=== PATIENT | female | born 1945 | race Caucasian/White ===

== ENCOUNTER → 2023-09-05 12:49 | Outpatient (REF) | payer MEDICARE, SELFPAY | LOC: DHCBS MAIN 12:49 | PROVIDERS: ATTENDING PHYSICIAN Internal Medicine Cardiovascular Disease; FAMILY PHYSICIAN Nurse Practitioner Adult Health | DX: I42.8 Other cardiomyopathies (principal) | CPT/HCPCS: 93306 ==

== ENCOUNTER → 2025-02-10 14:15 | Outpatient (REF) | payer MEDICARE, OTHER, SELFPAY | LOC: RCS 14:15 | PROVIDERS: ATTENDING PHYSICIAN Physician Assistant | DX: I50.32 Chronic diastolic (congestive) heart failure (principal); I42.8 Other cardiomyopathies; R06.02 Shortness of breath | CPT/HCPCS: 93306 ==

== ENCOUNTER 2025-02-11 16:18 | Inpatient (IN) | payer MEDICARE, OTHER, SELFPAY ==
[2025-02-11] VITALS (14 sets, daily range): BP systolic 78–120; BP diastolic 49–83
--- NOTE | 2025-02-11 12:42 | ED.GENMED ---
History of Present Illness
General
Chief Complaint: Breathing Problem
Time Seen by Provider: 02/11/25 12:42
History of Present Illness
History of Present Illness:
TIME OF INITIAL ENCOUNTER: 12:45 PM
HPI: I reviewed the clay-in note from Dr. Bowers in which there was an echo performed yesterday that showed new right heart dilatation and dysfunction with new PA pressure of 76 mmHg. She was seen in their office for vague symptoms a few weeks
ago including edema and shortness of breath. Dr. Bowers wanted a CTA for evaluation of PE. The patient has some vague symptoms including some shortness of breath which is not necessarily worse now.
EXAM:
GENERAL: The patient appears somewhat weak in general
HEENT: Moist oral mucosa
CARDIOVASCULAR: No murmurs, normal heart rate, regular rhythm, No chest wall tenderness
PULMONARY: No respiratory distress, breath sounds are slightly diminished at the bases
ABDOMEN: Soft with no peritoneal signs, no tenderness
NEUROLOGIC: Excellent strength all extremities, no coordination deficits
PSYCHIATRIC: Appropriate mental status, normal insight and judgement
EXTREMITIES: Nontender, 2+ lower extremity edema, moves all extremities equally
SKIN: No rash, no lesions
NUMBER AND COMPLEXITY OF PROBLEMS ADDRESSED AT THE ENCOUNTER
� Chronic conditions affecting care: High blood pressure
� Acute Exacerbation and/or Progression of Chronic Illness: This is an acute problem
� Differential Diagnosis includes: CHF, PE, ACS, pleural effusions
AMOUNT AND/OR COMPLEXITY OF DATA TO BE REVIEWED AND ANALYZED
� I performed an independent evaluation of and my interpretation is:
EKG: Sinus 76, rightward axis deviation, IVCD
CT: CTA shows extensive clot burden by my read.
X-rays:
Laboratory Studies: Troponin less than 0.012, BNP 7570, creatinine normal, potassium 5.2
Other:
� Review of other/old records: Echo from yesterday showed EF of 57% with no regional wall motion abnormality, diastolic function indeterminate, 'D-shaped interventricular septum in systole consistent with pressure overload',
mildly reduced right ventricular systolic function, PA pressure of 76 mmHg, severely dilated RA.
� Clinical information was obtained by an independent historian: None needed
� Prescriptions/Medications Considered but not given:
� Further testing considered but not performed:
RISK OF COMPLICATIONS AND/OR MORBIDITY OR MORTALITY OF PATIENT MANAGEMENT
� Social determinants of health affecting care: Lives at home
� Discussion with other providers: After my review of CTA, I activated PERT alert and also discussed with hospitalist, hotel front desk clerk who recommends catheter directed lysis. I also notified cardiology�DrYandel Delgado is aware.
� Escalation of care including admission/observation vs risk of discharge considered: The patient had abnormal echo from yesterday. D-dimer was ordered from triage today which was elevated. CTA pending.
ANY OTHER UPDATES:
3:05 PM: I reviewed the CT images which shows rather extensive bilateral clot burden. Her blood pressure has spontaneously improved now with his systolic of 120 without any intervention including no IV fluids.
3:35 PM: Dr. Green said he will try to perform catheter directed lysis although there may be a chronic component to this PE. Her echo findings are new.
Phy Exam
Physical Exam
Physical Exam:
See HPI
Scores
Heart Failure Risk
Heart Failure Risk Score: Not Applicable
Course
Orders/Labs/Results
Orders:
Orders
02/11/25 12:30
EKG [Electrocardiogram (*1)] Urgent
Reason for Study: Shortness of Breath
EKG- Treatment ONCE
02/11/25 12:37
IV Insert/Care/Rem.- Treatment PRN
Pulse Ox/cont/shift [RESP] Stat
Quantity: 1
02/11/25 12:38
CT Chest PE Study Urgent
Comment:
Reason For Exam: short of breath, RV dilation on echo
02/11/25 12:39
Electrocardiogram (*1) Stat
Reason for Study: Other
Other Reason for Exam: chest pain
Cardiac Monitoring- Treatment ONCE
EKG- Treatment ONCE
02/11/25 12:47
Basic Metabolic Panel Urgent
Complete Blood Count/With Diff Urgent
D-Dimer Urgent
NT-proBNP Urgent
PTT Urgent
Prothrombin Time Urgent
Troponin I Urgent
02/11/25 13:33
CMP [Comprehensive Metabolic Panel] Urgent
02/11/25 15:06
Heparin 6,300 units IV NOW STA
Nursing to Place Non Medication Order As Directed
Physician Order: PTT 6 hours after initial start of Heparin infusion
02/11/25 15:15
Heparin 6,300 units IV PRN PRN
Heparin 56043 Units/250 ml 25,000 units in 250 ml IV PER PROTOCOL
Weight to be used for heparin protocol in kilograms (kg):: 79
Protocol:: DVT/PE
PTT Goal Range to be used:: PTT 73 to 111 seconds
Order type:: Initial
INITIAL Infusion Dose (UNITS/KG/hr) & then follow protocol:: 18 units/kg/hr
Infusion Dose in UNITS/hr & then follow protocol (UNITS/hr):: 1,400
INFUSION RATE in mL/hr & then follow protocol (mL/hr):: 14
For DVT/PE algorithm, re-bolus for low PTT?: Yes
PTT less than or equal to 64 seconds:: Re-bolus 80 units/kg (max 10,000units). Increase by 300 units/hr
(+ 3mL/hr)
PTT 64.1 to 72.9 seconds:: Re-bolus 40 units/kg (max 5,000 units). Increase by 200 units/hr
(+ 2mL/hr)
PTT 73 to 111 seconds:: Target Range. No change in rate.
PTT 111.1 to 130.9 seconds:: Decrease rate by 200 units/hr (- 2 mL/hr)
PTT 131 to 199.9 seconds:: HOLD for 1 hr. Then decrease by 200 units/hr (- 2mL/hr)
PTT greater than or equal to 200 seconds:: HOLD for 2 hrs & Notify Provider. Then decrease by 300 units/hr
(- 3mL/hr)
Lab follow-up:: Each change, PTT q6h until 2 consecutive are therapeutic. Then
PTT daily.
02/11/25 15:16
Heparin 3,200 units IV PRN PRN
02/11/25 15:30
Consult Interventional Radiology [IRAD CONSULT] Urgent
Consulting Provider: Marcos Green
Was physician already notified: Yes
Procedure being ordered, including laterality if applicable: CDT
Acknowledgement that appropriate orders are entered: Yes
Abnormal Lab Results
02/11/25 02/11/25
12:47 13:33
MCV 103.2 H fL
(81.0-99.0)
MCH 35.6 H pg
(27.0-31.0)
MPV 10.9 H fL
(7.4-10.4)
Lymphocytes % 16.4 L %
(20.5-51.1)
PT 15.0 H Sec
(11.4-14.6)
D-Dimer 2.76 H ug/mlFEU
(0.00-0.50)
Potassium 5.2 H mmol/L
(3.5-5.1)
Chloride 109 H mmol/L 109 H mmol/L
(98-107) (98-107)
BUN 18 H mg/dl 18 H mg/dl
(7-17) (7-17)
Glucose 119 H mg/dl 104 H mg/dl
(70-99) (70-99)
Total Bilirubin 1.4 H mg/dl
(0.2-1.3)
02/11/25 12:47
02/11/25 13:33
Vital Signs
Initial and Last Documented VS:
Initial Vital Signs
Temp Pulse Resp BP Pulse Ox
36.9 C 72 18 106/58 88
02/11/25 12:37 02/11/25 12:37 02/11/25 12:37 02/11/25 12:37 02/11/25 12:37
Last Documented Vital Signs
Temp Pulse Resp BP Pulse Ox
36.9 C 76 24 120/78 93
02/11/25 12:37 02/11/25 15:04 02/11/25 15:04 02/11/25 15:04 02/11/25 15:06
*Pulse Oximetry
Patient hypoxic: yes
*Critical Care Note
Total Time (30-74mins, 75-104mins- exclusive of procedures): 55min
comment:
Patient is found to have bilateral PE on CTA, arrived somewhat hypotensive and had strain noted on yesterday's echo. Emergently placed on heparin. She has been on nasal cannula oxygen today as her room air sats were 88% and with nasal cannula
oxygen up to 93%. She does not appear to be in any significant distress on multiple reevaluations.
ED Attending Note
-
Portions of this chart may have been created with voice recognition software.� Occasional wrong word or��sound alike� substitutions may have occurred due to the inherent limitations of voice recognition software.
Discharge Plan
Departure
Patient Disposition: Admit
Date of Disposition: 02/11/25
Time of Disposition: 15:03
Presentation/result/management discussed w/ accepting MD/DO: Hospitalist
Discharge Problem:
Pulmonary embolism
Prescriptions:
No Action
carvedilol 12.5 MG tablet
12.5 mg PO BID
PRECIOUS-e 200 MG tablet
200 mg PO DAILY
Hair, Skin and Nails Advanced 1 EACH tablet
2 tab PO DAILY
cranberry conc-ascorbic acid 1 EACH capsule
2 tab PO DAILY
multivitamin with folic acid [Tab-A-Freda] 1 TABLET tablet
2 tab PO DAILY
coenzyme Q10 [Co Q-10] 10 MG capsule
10 mg PO DAILY Qty: 0 0RF
Rx Instructions:
Resume in 1 week.
spironolactone 25 MG tablet
25 mg PO DAILY Qty: 0 0RF
Rx Instructions:
Hold if systolic blood pressure <130 while on Oxycodone.
omega 5-qlw-pof-fish oil [Fish Oil] 1 EACH capsule
2 tab PO DAILY Qty: 0 0RF
Rx Instructions:
Resume in 1 week.
lisinopril 10 mg tablet
10 mg PO DAILY
ibuprofen 200 mg Tablet
200 mg PO DAILY
cholecalciferol (vitamin D3) 25 mcg (1,000 unit) Tablet
25 mcg PO DAILY
Referrals:
Margaux Zheng CRNP [Family Provider] -
Interventions
Interventions:
*Risk Screen - Suicide Last Done: 02/11/25 12:37
*General Assessment Last Done: 02/11/25 12:37
*Neglect/Abuse Screening Last Done: 02/11/25 12:37
*ED- Fall Risk Assessment Last Done: 02/11/25 12:49
*ED COVID-19 Vaccine History Last Done: 02/11/25 12:49
ED- Cardiac Assessment Last Done: 02/11/25 12:49
ED- Pulmonary Assessment Last Done: 02/11/25 12:49
Discharge Date and Time
Print Language: [place]
[2025-02-11 13:13] LABS: APTT 28.9 Sec (23.4-35.0); INR 1.15
[2025-02-11 13:16] LABS: D-Dimer 2.76 ug/mlFEU (0.00-0.50)
[2025-02-11 13:18] LABS: % Basophils 0.6 % (0-2); % Eosinophils 2.1 % (0-6); % Immature Granulocytes 0.1 % (0-0.5); % Lymphocytes 16.4 % (20.5-51.1); % Monocytes 6.2 % (1.7-9.3); % Neutrophils 74.6 % (42.2-75.2); Absolute Eosinophils 0.2 10^3/uL (0-0.7); Absolute Lymphocytes 1.2 10^3/uL (1.2-3.4); Absolute Monocytes 0.5 10^3/uL (0.1-0.6); Absolute Neutrophils 5.4 10^3/uL (1.4-6.5); Hematocrit 44.6 % (37.0-47.0); Hemoglobin 15.4 g/dL (12.0-16.0); Mean Corp Hgb Conc. 34.5 g/dL (33.0-37.0); Mean Corpuscular Hgb 35.6 pg (27.0-31.0); Mean Corpuscular Volume 103.2 fL (81.0-99.0); Mean Platelet Volume 10.9 fL (7.4-10.4); Nucleated Red Blood Cells % 0 %; Platelet Count 148 10^3/uL (130-400); Red Blood Cell Count 4.32 10^6/uL (4.20-5.40); Red Cell Dist. Width 12.9 % (11.5-14.5); White Blood Cell Count 7.2 10^3/uL (4.8-10.8)
[2025-02-11 13:26] LABS: NT-proBNP 7570 pg/ml; Troponin I < 0.012 ng/ml
[2025-02-11 13:29] LABS: Blood Urea Nitrogen 18 mg/dl (7-17); Calcium 9.5 mg/dl (8.4-10.2); Carbon Dioxide 23 mmol/L (22-30); Chloride 109 mmol/L (98-107); Glucose 119 mg/dl (70-99); Sodium 139 mmol/L (135-145)
[2025-02-11 13:58] LABS: ALT (SGPT) 14 U/L (0-35); AST (SGOT) 25 U/L (14-36); Albumin 3.5 g/dl (3.5-5.0); Alkaline Phosphatase 60 U/L (38-126); Blood Urea Nitrogen 18 mg/dl (7-17); Calcium 9.4 mg/dl (8.4-10.2); Carbon Dioxide 25 mmol/L (22-30); Chloride 109 mmol/L (98-107); Glucose 104 mg/dl (70-99); Potassium 5.2 mmol/L (3.5-5.1); Sodium 140 mmol/L (135-145); Total Bilirubin 1.4 mg/dl (0.2-1.3); Total Protein 6.4 g/dl (6.3-8.2)
[2025-02-11] MEDS: HEPARIN 6300 UNITS IV (15:19)
[2025-02-11] MEDS: HEPARIN 25000 UNITS/250 ML IV (15:23)
--- NOTE | 2025-02-11 15:47 | HPS.HSE ---
Family Physician
-
Family Physician: IVANA Pavon
Chief Complaint
-
Sent in by [facility] Card for Abnormal ECHO concerning for PE
History of Present Illness
HPI
79F HX HTN seen by Dr. Bowers due to SOB, LE edema with ongoing SOB for weeks worse w/ exertion.
Yesterday Echo shows new RV dilatation and PA pressure 76. LVEF 57%
Trop neg, but BNP over 7000 w/ no old to compare. EF 57%.
CTA and shows rather extensive clot burden bilaterally
Blood pressures have been hovering around 100 systolic.
Activating PERT Alert by ER attd
Medical History
Past Medical History
Past Medical History: Reports HTN
Past Surgical History: Reports Other
Social History
Tobacco: Non-smoker
Alcohol: None
Family History
Family History: Not pertinent
Allergies / Home Medications
Allergies reflects when Allergies were last updated in [employer].
Home Medications with original date entered in [employer]
Allergy/Medication List:
Allergies
Allergy/AdvReac Type Severity Reaction Status Date / Time
meperidine Allergy shock Verified 02/11/25 12:36
[id number] - Not Allergy Unknown Uncoded 04/16/21 06:25
Converted 38. See Text.
Home Medications
carvedilol 12.5 mg tablet 12.5 mg PO BID 04/10/21
cranberry concentrate-ascorbic acid 12,600 mg-20 mg capsule 2 tab PO DAILY 04/10/21
multivitamin with folic acid 400 mcg tablet (Tab-A-Freda) 2 tab PO DAILY 04/10/21
multivitamin,min-ferrous fumarate 3.3 mg-folic 25 mcg-herb tablet (Hair, Skin and Nails Advanced) 2 tab PO DAILY 04/10/21
s-adenosylmethionine 200 mg tablet (PRECIOUS-e) 200 mg PO DAILY 04/10/21
coenzyme Q10 10 mg capsule (Co Q-10) 10 mg PO DAILY ##0 04/16/21
omega 1-hrw-ihd-fish oil 300 mg-1,000 mg capsule (Fish Oil) 2 tab PO DAILY ##0 04/16/21
spironolactone 25 mg tablet 25 mg PO DAILY ##0 04/16/21
cholecalciferol (vitamin D3) 25 mcg (1,000 unit) tablet 25 mcg PO DAILY 02/11/25
ibuprofen 200 mg tablet 200 mg PO DAILY 02/11/25
lisinopril 10 mg tablet 10 mg PO DAILY 02/11/25
Review of Systems
-
Constitutional: Reports No Symptoms
EENT: Reports No Symptoms
Respiratory: Reports See HPI and Trouble Breathing
Cardiac: Reports No Symptoms
Abdomen/GI: Reports No Symptoms
: Reports No Symptoms
Musculoskeletal: Reports See HPI and Edema (b/l Eun edema )
Neurological: Reports No Symptoms
Endocrine: Reports No Symptoms
Hematologic/Lymphatic: Reports No Symptoms
Psych: Reports No Symptoms
Physical Exam
Vital Signs
Vital Signs
Temp Pulse Resp BP Pulse Ox
98.4 F 76 24 120/78 93
02/11/25 12:37 02/11/25 15:04 02/11/25 15:04 02/11/25 15:04 02/11/25 15:06
Physical Exam
General: Well Developed, Well Nourished and No Apparent Distress
HEENT: NormoCephalic, Moist mucous membranes and Atraumatic
Respiratory: Clear
Cardiac: S1/S2 and Regular Rhythm; No Murmur or Rub
GI: Soft, Non Tender, Non Distended and Normal Bowel Sounds; No Organomegaly
Rectal: Deferred by Provider
Musculoskeletal: No Clubbing, No Cyanosis, Edema, Right Upper Extremity, Edema, Left Lower Extremity and No Edema
Skin: No Rash
Neuro: Nonfocal/grossly intact
Laboratory Results
-
02/11/25 12:47
02/11/25 13:33
Laboratory Results
PT 15.0 Sec (11.4-14.6) H 02/11/25 12:47
INR 1.15 02/11/25 12:47
APTT 28.9 Sec (23.4-35.0) 02/11/25 12:47
Total Bilirubin 1.4 mg/dl (0.2-1.3) H 02/11/25 13:33
AST 25 U/L (14-36) 02/11/25 13:33
ALT 14 U/L (0-35) 02/11/25 13:33
Alkaline Phosphatase 60 U/L (38-126) 02/11/25 13:33
Troponin I < 0.012 ng/ml 02/11/25 12:47
Data Reviewed
-
CT Scan: Report Reviewed by me
Impression/Plan
-
Vital Signs
Temp Pulse Resp BP Pulse Ox
98.4 F 76 24 120/78 93
02/11/25 12:37 02/11/25 15:04 02/11/25 15:04 02/11/25 15:04 02/11/25 15:06
Abnormal Lab Results
02/11/25 02/11/25
12:47 13:33
MCV 103.2 H
MCH 35.6 H
MPV 10.9 H
Lymphocytes % 16.4 L
PT 15.0 H
D-Dimer 2.76 H
Potassium 5.2 H
Chloride 109 H 109 H
BUN 18 H 18 H
Glucose 119 H 104 H
Total Bilirubin 1.[address] Chest PE Study
1. SEVERE CHRONIC PULMONARY THROMBOEMBOLISM with large eccentric pulmonary thromboemboli in both the right and left pulmonary arteries causing luminal narrowing, pulmonary hypertension, and RIGHT HEART STRAIN.
2. Mild cardiomegaly.
3. Moderate calcific atherosclerotic plaque in the left coronary artery.
4. Mild scarring/subsegmental atelectasis in the right lower lobe.
5. 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
02/10/25 TTE
Small left ventricular size. Normal systolic function. No regional wall motion abnormalities are seen.
LV ejection fraction is 57% by Ponce's method of discs.
Mild to moderate left ventricular hypertrophy. Diastolic function indeterminate.
'D 'shaped interventricular septum in systole consistent with pressure overload.
Mild to moderately enlarged right ventricular size. With mildly reduced right ventricular systolic function.
Trace mitral regurgitation.
Trileaflet aortic valve with normal leaflet excursion. No aortic regurgitation is seen.
Moderate tricuspid regurgitation.
Estimated pulmonary artery pressure of 76 mmHg assuming a right atrial pressure of 8 mmHg.
Compared to prior study 09/05/2023 right ventricle is now dilated and dysfunctional and PA pressure has increased to 76 mmHg previously could not be determined/normal.
NO PRIOR hospitalist admission:
ASSESSMENT & PLAN
PERT alert admission
B/L PE with large eccentric PTE in both the right and left PA causing luminal narrowing PHT & RV strian
- soft BP upon arrival
- 02/11/25 CTC suggest severe PE
- 02/10/25 TTE with 'D 'shaped interventricular septum in systole consistent with pressure overload.
- PERT alert called by ER attd
- Hold daily NSAIDS
- Heparin gtt initiated at ER
- IR consulted - can do and will try some catheter directed lysis, IR impression is the left sided clot looks most occlusive, the right sided clot looks peripheral nonocclusive and probably chronic.
- ICU and [facility] card consulted
Essential HTN
- hold Carvedilol
- on [employer]IDE Lisinopril with hold for SBP < 120
- c/w Spironolactone
DVT Px: on Heparin gtt
Full code
ICU
Total Critical Care Time___55__ minutes. I was immediately available to the patient and staff. I personally examined, reviewed labs, diagnostic images/reports, interpretations, treatment plans, discussed patient care with other providers and
family or caregivers (if patient is unable to make decisions), entered orders as appropriate and documented the medical record.
--- NOTE | 2025-02-11 17:28 | W.PN.UPDATE ---
Update Note
Progress Note Update
Left pulmonary artery pressure measured at 79/27, mean 47 mmHg. Left pulmonary arteriogram showed small volume embolus, and relatively preserved parenchymal perfusion. Right PA not cannulated, as there was not much right sided embolus on CTA.
Suspect elevated PA pressures are more related to CTEPH rather than to acute PE. Chronic emboli are less likely to respond to lysis. Will try lysis until tomorrow morning, then will DC lysis.
tPA to run at 1 mg/hr until 11:30 pm, then decrease rate to 0.5 mg/hr at 11:30 pm, and continue until she returns to IR in the morning.
Heparin to run at 1000 units per hour without titration, until patient returns to IR.
--- NOTE | 2025-02-11 18:26 | PTCARENOTE ---
Pt received from IR into room 3359 post catheter directed thrombolysis. TPA infusing at 1mg/hr through R femoral sheath, it is to continue at this rate until 1130, after which we will drop the rate to 0.5mg/hr. Heparin infusing at 1000 units/hr
through peripheral IV, do not titrate orders. PT is Ox3, is not complaining of any pain, MARTINEZ. Current restrictions to remain strict bed rest with bed and leg to be kept completely flat. NSR on tele, rate of 67, +1 LE edema L>R, feet are cold and
toes have a purple coloring BL, pt states this is baseline. 95% on 2L NC, pt not complaining of SOB, breath sounds diminished. Round ABD, pt is not complaining of any pain. Continent of urine, plan to use bedpan for toileting. IV sites intact. Call
teran within reach. Pt and family educated about plan of care and bed position restrictions.
[2025-02-11] MEDS: CATHFLO/ACTIVASE 1000 MG INF CATH ×2 (19:00→23:22)
[2025-02-11] MEDS: COLACE 100 MG PO (19:57)
--- NOTE | 2025-02-11 20:00 | PTCARENOTE ---
Received pt. at 1900. Pt. currently in bed. Awake, alert, and oriented. Denies pain/discomfort. Afebrile. Heart rhythm sinus. Blood pressure normotensive. Currently on nasal cannula. Lungs sound diminished. Abdomen soft nontender. Voiding on bedpan
without issue. Skin as documented. Vital signs stable at this time.
[2025-02-11 22:08] LABS: Glucose - Point of Care 82 mg/dl (70-99)
[2025-02-11 22:27] LABS: APTT > 200 Sec (23.4-35.0)
[2025-02-12] VITALS (23 sets, daily range): BP systolic 93–130; BP diastolic 47–93
--- NOTE | 2025-02-12 00:15 | PTCARENOTE ---
Pt. assessment unchanged. Alteplase gtt and heparin gtt infusing. Alteplase gtt decreased to 0.5mg/hr per order. Pt. resting comfortably. Vital signs stable at this time.
--- NOTE | 2025-02-12 04:00 | PTCARENOTE ---
Pt. assessment remains unchanged. AM labs drawn. Vital signs stable at this time.
[2025-02-12 04:23] LABS: Hematocrit 40.7 % (37.0-47.0); Hemoglobin 14.2 g/dL (12.0-16.0); Mean Corp Hgb Conc. 34.9 g/dL (33.0-37.0); Mean Corpuscular Hgb 36.1 pg (27.0-31.0); Mean Corpuscular Volume 103.6 fL (81.0-99.0); Platelet Count 124 10^3/uL (130-400); Red Blood Cell Count 3.93 10^6/uL (4.20-5.40); Red Cell Dist. Width 13.1 % (11.5-14.5); White Blood Cell Count 5.9 10^3/uL (4.8-10.8)
[2025-02-12 05:00] LABS: Blood Urea Nitrogen 15 mg/dl (7-17); Calcium 9.1 mg/dl (8.4-10.2); Carbon Dioxide 22 mmol/L (22-30); Chloride 113 mmol/L (98-107); Glucose 82 mg/dl (70-99); Magnesium 1.5 mg/dl (1.6-2.3); Phosphorus 3.9 mg/dl (2.5-4.5); Potassium 4.9 mmol/L (3.5-5.1); Sodium 141 mmol/L (135-145); eGFR > 60.00
[2025-02-12] MEDS: CATHFLO/ACTIVASE 1000 MG INF CATH (05:18)
--- NOTE | 2025-02-12 06:53 | CON.INTV ---
Consultation
Consultation Request
Date/Time Consultation Requested: 02/11/2025
Date/Time Consultation Performed: 02/12/2025
Requesting Provider: Prasanna West
Performing Provider: Samira Liu
Reason for Consultation: PE
Medical History
-
Chief Complaint: Dyspnea
History of Present Illness:
Patient is a very pleasant 79-year-old female who follows up with the cardiology clinic for prior history of nonischemic cardiomyopathy with recovered ejection fraction. She reportedly has been having few months of gradually worsening shortness of
breath and was seen in follow-up. She also reports gradually increasing lower extremity edema. Patient had an echocardiogram performed earlier this week and today was advised to come to emergency room for further evaluation. Her echocardiogram
showed significant pulmonary hypertension which was new from an echocardiogram in August 2023 there was evidence of RV dilation with elevated PA pressure. Workup in the emergency room included BNP more than 7000 and a CTA was performed which
showed bilateral extensive clot burden with pulmonary embolism with some degree of possible chronicity. PERT team was activated. Considering evidence of the septum on echocardiogram which was new relative to echo in August 2023, dyspnea, pedal
edema, borderline blood pressure and borderline saturation, decision was made to consult IR for possible catheter directed therapies. Patient was taken to IR and was noted to have low embolic burden overall. Catheter was left in place for infusion
of tPA with the plan for relook tomorrow morning. Patient subsequently being admitted to ICU and qm consultant consult was requested for further input.
Past Medical History: Reports HTN
Past Surgical History: Reports Other
Social History
Tobacco: Non-smoker
Alcohol: None
Family History
Family History: Not pertinent
Allergies / Home Medications
Allergies / Home Medications
Allergies
Allergy/AdvReac Type Severity Reaction Status Date / Time
meperidine Allergy shock Verified 02/11/25 16:16
Home Medications
�Medication �Instructions �Recorded �Confirmed �Last Taken �Type
carvedilol 12.5 mg tablet 12.5 mg PO BID 04/10/21 02/11/25 02/11/25 History
cranberry concentrate-ascorbic 2 tab PO DAILY 04/10/21 02/11/25 02/11/25 History
acid 12,600 mg-20 mg capsule
multivitamin with folic acid 400 2 tab PO DAILY 04/10/21 02/11/25 02/11/25 History
mcg tablet (Tab-A-Freda)
multivitamin,min-ferrous fumarate 2 tab PO DAILY 04/10/21 02/11/25 02/11/25 History
3.3 mg-folic 25 mcg-herb tablet
(Hair, Skin and Nails Advanced)
s-adenosylmethionine 200 mg tablet 200 mg PO DAILY 04/10/21 02/11/25 02/11/25 History
(PRECIOUS-e)
coenzyme Q10 10 mg capsule (Co 10 mg PO DAILY ##0 04/16/21 02/11/25 02/11/25 Rx
Q-10)
omega 4-tmc-yrr-fish oil 300 2 tab PO DAILY ##0 04/16/21 02/11/25 02/11/25 Rx
mg-1,000 mg capsule (Fish Oil)
spironolactone 25 mg tablet 25 mg PO DAILY ##0 04/16/21 02/11/25 02/11/25 Rx
cholecalciferol (vitamin D3) 25 25 mcg PO DAILY 02/11/25 02/11/25 02/11/25 History
mcg (1,000 unit) tablet
ibuprofen 200 mg tablet 200 mg PO DAILY 02/11/25 02/11/25 02/11/25 History
lisinopril 10 mg tablet 10 mg PO DAILY 02/11/25 02/11/25 02/11/25 History
Review of Systems
-
Hematologic/Lymphatic: Other (All 14 systems reviewed and negative except as stated above in the history of present illness.)
Vitals / Labs / Diagnostic Testing
Vital Signs
Temp Pulse Resp BP Pulse Ox
98.5 F 78 16 106/79 94
02/11/25 16:17 02/11/25 16:17 02/11/25 16:17 02/11/25 16:17 02/11/25 16:17
Lab Data
02/11/25 12:47
02/11/25 13:33
Laboratory Results
02/11/25
12:47
PT 15.0 H
INR 1.15
APTT 28.9
Diagnostic Testing:
Physical Exam
-
HEENT: Normocephalic
Cardiovascular: S1/S2 and Peripheral Edema (1+ pedal edema)
Respiratory: Clear
GI: Soft
Neurology: Awake, Alert and Oriented
Skin: Warm
General: Comfortable
Assessment
-
#1. Acute on suspect Chronic PE, ?CTEPH. Based on review of CT scan and findings during catheter directed attempted thrombolysis, there appears to be at least some degree of chronicity of clot raising the possibility of chronic thromboembolic
pulmonary hypertension. Infusing thrombolysis and heparin via catheter and scheduled for follow-up IR evaluation today. If there is significant drop in pressure this will favor more of an acute event rather than chronic.
- Continue catheter directed for thrombolysis with heparin for now
- Await reevaluation by IR
- Continue to monitor in ICU, keep oxygen saturation above 90%
- Will need long-term anticoagulation
#2. 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
- Considering there is some suspicion of chronicity of thromboembolic disease, patient might have underlying CTEPH. Patient reports that 20 years ago she was diagnosed with an intracardiac blood clot and was treated with Coumadin for few months.
No known history of DVT or PE in the past.
- Continue catheter directed thrombolysis with heparin for now
- If PA pressure continues to stay elevated and clot persists, patient would be more likely to have CTEPH
- Will need long-term anticoagulation and eventual referral to a tertiary center which manages pulmonary hypertension as patient might be a candidate for embolectomy for definitive treatment for CTEPH
#3. Dyspnea on exertion.
- Suspect patient's worsening dyspnea on exertion and pedal edema is related to underlying developing pulmonary hypertension which is likely group 4
- Patient already has a D septum, avoid additional IV fluid resuscitation, if hemodynamics permit will pursue gentle diuresis. Hold Aldactone and lisinopril for now
- Continue O2 support, keep saturations above 90%. Currently on 6 L nasal cannula, saturating 96%
- Likely will need home oxygen
Other medical diagnoses:
- Chronic LBBB
- H/o non-ischemic cardiomyopathy with recovered EF
- HLD
- Mild Intermittent Asthma
Critical Care time 62 mins -- The patient is admitted for acute critical illness for the treatment of vital organ failure and/or prevention of further life-threatening conditions. Total care includes time spent in review of history, physical exam,
medications, hemodynamic/ventilator parameters, laboratory data, imaging and discussion with house staff, pharmacy, respiratory therapy, assistant federal public defender, and nursing.
Data:
CT Chest PE Study
1. SEVERE CHRONIC PULMONARY THROMBOEMBOLISM with large eccentric pulmonary thromboemboli in both the right and left pulmonary arteries causing luminal narrowing, pulmonary hypertension, and RIGHT HEART STRAIN.
2. Mild cardiomegaly.
3. Moderate calcific atherosclerotic plaque in the left coronary artery.
4. Mild scarring/subsegmental atelectasis in the right lower lobe.
5. 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
ECHO 01/2025: Small left ventricular size. Normal systolic function. No regional wall motion abnormalities are seen.
LV ejection fraction is 57% by Ponce's method of discs.
Mild to moderate left ventricular hypertrophy. Diastolic function indeterminate.
'D 'shaped interventricular septum in systole consistent with pressure overload.
Mild to moderately enlarged right ventricular size. With mildly reduced right ventricular systolic function.
Trace mitral regurgitation.
Trileaflet aortic valve with normal leaflet excursion. No aortic regurgitation is seen.
Moderate tricuspid regurgitation.
Estimated pulmonary artery pressure of 76 mmHg assuming a right atrial pressure of 8 mmHg.
CXR 11/2021: Unremarkable
--- NOTE | 2025-02-12 08:00 | W.PN.HOSP.TC ---
Addendum entered and electronically signed by Margaux Stewart MD 02/12/25 14:47:
I saw and evaluated the patient independently. I reviewed the resident�s note and agree with findings and plan as documented by Dr. Osman.
GENERAL: well developed, well nourished, female in no apparent distress
HEENT: NC/AT--bleeding gums
HEART: regular rate and rhythm, +S1, +S2
LUNGS : clear to auscultation bilaterally
ABDOM: soft, nontender, nondistended, + bowel sounds
EXT: no cyanosis, clubbing--left leg with 3+ LE edema
NEUROLOGIC: grossly intact
Acute on chronic bilateral pulmonary embolism causing chronic pulm HTN and right heart strain--apprec pulm/IR--s/p lytic therapy and restarting IV heparin--CM pricing Eliquis--pt was on Coumadin years ago--US legs shows Nonocclusive thrombus within
the popliteal veins bilaterally--restart IV heparin for now--consult heme--would suggest checking antiphospholipid antibodies and lupus anticoagulant--Eliquis might not be best drug if one of these is positive--will need lifelong
anticoagulation--Thoracic arteriogram/Pulmonary arteriogram-- Findings overall are suggestive of chronic thromboembolic pulmonary hypertension, rather than pulmonary hypertension related to acute emboli. Chronic emboli are less likely to respond to
thrombolysis--wean O2 to off if able
Pulmonary hypertension likely secondary to chronic thromboembolic burden--History of intracardiac blood clot about 20 years ago-treated with warfarin at that time--No known history of chronic lung disease/no history of DVT or PE- Per pulmonology:
Referral will be needed to a tertiary center where she can be manage blood pulmonary hypertension and also can be evaluated for a possible embolectomy to address CTEPH treatment- Likely will need home oxygen-will be assessed before discharge
History of non-ischemic cardiomyopathy--Dyspnea on exertion recently for a few months-Troponin negative <0.012--ECHO: LV ejection fraction is 57%, Mild to moderate left ventricular hypertrophy. Diastolic function indeterminate. 'D 'shaped
interventricular septum in systole consistent with pressure overload. Mild to moderately enlarged right ventricular size. With mildly reduced right ventricular systolic function.Trace mitral regurgitation. Trileaflet aortic valve with normal
leaflet excursion. No aortic regurgitation is seen.Moderate tricuspid regurgitation.
Essential HTN --hold meds--follow BP
Hypomagnesemia--replete as needed
Chronic LBBB/Hyperlipidemia/Mild Intermittent Asthma--all stable
DVT proph
code status--FULL CODE
Original Note:
Today's Communication/Plan
-
-Lower extremity Doppler US ordered
-Oral anticogulant planning to start
-Magnesium replaced
-Follow vitals and telemetry
Assessment / Plan
Assessment / Plan
#Acute on highly possibly chronic bilateral pulmonary embolism
-PERT alert given at ER arrival
-CT chest: Severe chronic pulmonary thromboembolism with large eccentric pulmonary thromboemboli in both the right and left pulmonary arteries causing luminal narrowing, pulmonary hypertension, and RIGHT HEART STRAIN.
- Thoracic arteriogram/Pulmonary arteriogram:(ultrasound-guided access of the right common femoral vein): Left pulmonary arterial pressure measured 79/27, mean 47 mmHg.Left pulmonary arteriogram demonstrated a central nonocclusive filling defect.
There was relatively well-preserved parenchymal perfusion of the left lung. Findings overall are suggestive of chronic thromboembolic pulmonary hypertension, rather than pulmonary hypertension related to acute emboli. Chronic emboli are less likely
to respond to thrombolysis.
-Pulmonology and IR on board
-Patient evaluated by IR and sent an ultrasound-guided catheter from right femoral vein/started on tPA and heparin on 02/11/2025 with a plan to continue until 02/12/2025 morning and check clot burden
Received infusion of thrombolysis and heparin via catheter and seen for follow-up IR evaluation today morning. Considered patient having CTEPH based on overall findings per IR and pulmonology
- Continue to monitor in ICU
- Supplemental oxygen as needed to keep oxygen saturation above 90%
- enterprise services manager on board: Will check pricing with the patient- patient will need long-term anticoagulant use
#Pulmonary hypertension likely secondary to chronic thromboembolic burden
-History of intracardiac blood clot about 20 years ago-treated with warfarin at that time
-No known history of chronic lung disease/no history of DVT or PE
- Patient will need follow-up with pulmonology
- Per pulmonology: Referral will be needed to a tertiary center where she can be manage blood pulmonary hypertension and also can be evaluated for a possible embolectomy to address CTEPH treatment
- Likely will need home oxygen-will be assessed before discharge
# History of non-ischemic cardiomyopathy
-Dyspnea on exertion recently for a few months
-Troponin negative <0.012
-Patient`s recent worsening of dyspnea may be related to her chronic pulmonary embolism
-ECHO: LV ejection fraction is 57%, Mild to moderate left ventricular hypertrophy. Diastolic function indeterminate. 'D 'shaped interventricular septum in systole consistent with pressure overload. Mild to moderately enlarged right ventricular
size. With mildly reduced right ventricular systolic function.Trace mitral regurgitation. Trileaflet aortic valve with normal leaflet excursion. No aortic regurgitation is seen.Moderate tricuspid regurgitation.
-Be cautious with IV fluids resuscitation
-Be cautious with diuresis
-Monitor weight changes/follow-up I/Os
#Essential HTN
-BP on lower side
-Hold Aldactone and lisinopril for now
-Consider starting gradually if patient's BP has room
# Hypomagnesemia
- Placed with 2 g
- Follow-up magnesium levels
- Replace as needed
# Chronic LBBB
# Hyperlipidemia
#Mild Intermittent Asthma
DVT Px: Patient's heparin drip discontinued this morning with a plan to switch to oral anticoagulant-oral anticoagulant will be started after patient agreed with the pricing
Full code
Anticipated Discharge: 24 - 48 hours
Subjective/Interval History
-
Date of Service: February 12, 2025
Patient seen in her bed complaining shortness of breath. Has some bruising and signs of bleeding on her left arm cubital area with IV way(no active bleeding)
Objective Data
-
Labs:
Laboratory Results
02/11/25 02/12/25
21:50 03:50
WBC 5.9
Hgb 14.2
Hct 40.7
Plt Count 124 L
APTT > 200 H*
Sodium 141
Potassium 4.9
Chloride 113 H
Carbon Dioxide 22
BUN 15
Creatinine 0.9
Glucose 82
Calcium 9.1
Vital Signs:
Vital Signs
Temp Pulse Resp BP Pulse Ox
98.3 F 70 16 100/55 95
02/12/25 07:35 02/12/25 06:30 02/12/25 06:30 02/12/25 06:00 02/12/25 06:30
I&O
02/11/25 02/12/25 02/13/25
06:59 06:59 06:59
Intake Total 970 / 970
Output Total 200 / 200
Balance 770 / 770
Review of Systems
-
History Source: Patient
EENT: Reports Other (Some bleeding in the mouth)
Respiratory: Reports Other (Shortness of breath)
Abdomen/GI: Reports No Symptoms
Genitourinary: Reports No Symptoms
Musculoskeletal: Reports Edema
Skin: Reports Other (Bruises)
Neuro: Reports No Symptoms
Physical Exam
-
General: Well Developed, Well Nourished, Respiratory Distress and Conversant
HEENT: Normocephalic and Atraumatic
Respiratory: Clear to Auscultation
Cardiac: Regular Rhythm and S1/S2
GI: Soft, Nontender and Nondistended
Musculoskeletal: Edema, Left Lower Extrem
Skin: Warm, IV Access / Catheter Site and Other (Signs of bleeding on the left arm cubital area-no active bleeding/right femoral vein catheter area: no signs of hematoma)
Neuro: Awake, Alert, Oriented and AO x 3
Psych: Calm
--- NOTE | 2025-02-12 08:52 | PTCARENOTE ---
0800 taking to IR via bed
--- NOTE | 2025-02-12 09:43 | W.PN.UPDATE ---
Addendum entered and electronically signed by Marcos Green MD 02/12/25 10:14:
Bedrest until 11:30 am, then ok to get OOB.
Original Note:
Update Note
Progress Note Update
Repeat PA pressure left main 93/35 (mean 59 mmHg). Right PA pressure 94/37 (60).
Left PA arteriogram shows relatively preserved left parenchymal perfusion.
Right PA agram shows perfusion defect within the right mid lung zone, but no central obstructing embolus seen.
Overall findings are most suggestive of CTEPH.
PA catheter and sheath were removed. OK to resume therapeutic anticoagulation around 11:30 am, two hours after sheath removal.
--- NOTE | 2025-02-12 10:28 | SUR.OPER ---
AT 10:00 patient transfer back from IR. RT Groin site covered by dressing. No sign of bleed. Oral mild bleed noted Oral care administered. Pant c/o of chronic [employer] pain . Dilaudid prn will be administered
[2025-02-12] MEDS: DILAUDID 0.25 MG IV (10:48)
[2025-02-12] MEDS: MAGNESIUM SULFATE 50 IV (10:50)
[2025-02-12] MEDS: COLACE 100 MG PO ×2 (12:24→19:36)
[2025-02-12] MEDS: PROTONIX 40 MG PO (12:24)
--- NOTE | 2025-02-12 14:25 | CM ---
Patient seen at bedside in ICU. Patient lives with in a 2-3 floor home. Each floor has a landing that patient puts a bench on to rest so that she can continue up the stairs. [facility]. Patient anticipating changing her pharmacy as [facility] is out of network for her medication plan with [facility]. ID# [id number]. CM called to . Per [facility] and the [facility] initially the cost is 533.64 retail or
535.00-mail order. After to deductible of 590.00 is met patient cost is 135.50 retail or 137.85 mail order. CM updated patient and she agreed to accept the cost of the medication and CM will provide coupon for Eliquis. Patient physician updated. CM
will continue to follow for discharge planning needs.
Plan; home with VN vs SNF pending PT/OT assessment/medical treatment plan
[2025-02-12 15:16] LABS: APTT 29.8 Sec (23.4-35.0)
[2025-02-12] MEDS: HEPARIN 25000 UNITS/250 ML IV (16:58)
--- NOTE | 2025-02-12 17:36 | PTCARENOTE ---
Heparin initiated per DVT protocol with no bolus. Per protocol Heparin infusing at 1400/14 ml Next PTT 2300
AAO x 3 denies pain
Normal Sinus Rhythm 79 bpm dorsal pedal pulses
On 6L via nasal cannula NO SOB; Lungs diminished
Abdomen soft non tender
Voiding with no difficulties
Oral care done; Peripheral lines : Rt hand # 20 left Heparing infusing 18 capped
--- NOTE | 2025-02-12 19:00 | PTCARENOTE ---
Received pt. at 1900. Pt. currently in bed. Awake, alert, and oriented. Denies pain/discomfort. Afebrile. Heart rhythm sinus. Blood pressure normotensive. Currently on nasal cannula. Lungs sound diminished. PO diet, good appetite. Voiding without
issue. Skin as documented. Discussed planof care. Vital signs stable at this time.
[2025-02-12 23:41] LABS: APTT > 200 Sec (23.4-35.0)
[2025-02-13] VITALS (11 sets, daily range): BP systolic 94–140; BP diastolic 59–82; PULSE 83; O2SAT 93–95
--- NOTE | 2025-02-13 | PTCARENOTE ---
Pt. assessment unchanged. Heparin gtt currently on hold per protocol. Pt. appears to be comfortably sleeping. Vital signs stable at this time.
[2025-02-13 05:36] LABS: Hematocrit 36.9 % (37.0-47.0); Hemoglobin 12.9 g/dL (12.0-16.0); INR 1.31; Mean Corpuscular Hgb 35.9 pg (27.0-31.0); Mean Corpuscular Volume 102.8 fL (81.0-99.0); PT 16.6 Sec (11.4-14.6); Platelet Count 117 10^3/uL (130-400); Red Blood Cell Count 3.59 10^6/uL (4.20-5.40); White Blood Cell Count 6.6 10^3/uL (4.8-10.8)
[2025-02-13 05:49] LABS: ALT (SGPT) 12 U/L (0-35); AST (SGOT) 27 U/L (14-36); Alkaline Phosphatase 55 U/L (38-126); Blood Urea Nitrogen 13 mg/dl (7-17); Calcium 8.7 mg/dl (8.4-10.2); Carbon Dioxide 22 mmol/L (22-30); Chloride 112 mmol/L (98-107); Glucose 72 mg/dl (70-99); Magnesium 1.5 mg/dl (1.6-2.3); Potassium 4.7 mmol/L (3.5-5.1); Sodium 138 mmol/L (135-145); Total Bilirubin 1.9 mg/dl (0.2-1.3); Total Protein 5.8 g/dl (6.3-8.2); eGFR > 60.00
--- NOTE | 2025-02-13 07:21 | W.PN.HOSP.TC ---
Addendum entered and electronically signed by Margaux Stewart MD 02/13/25 13:41:
I saw and evaluated the patient independently. I reviewed the resident�s note and agree with findings and plan as documented by Dr. Osman.
GENERAL: well developed, well nourished, female in no apparent distress
HEENT: NC/AT--bleeding gums
HEART: regular rate and rhythm, +S1, +S2
LUNGS : clear to auscultation bilaterally
ABDOM: soft, nontender, nondistended, + bowel sounds
EXT: no cyanosis, clubbing--left leg with 3+ LE edema
NEUROLOGIC: grossly intact
Patient is in need of oxygen at 2 liters/minute via nasal cannula continuously due to pulse oximetry of 86% on room air at rest. Oxygen will help to improve hypoxemia. Patient is mobile within the home. DuoNeb therapy has been tried and is
ineffective in treating hypoxemia related symptoms. Oxygen is needed to improve symptoms.
Acute on chronic bilateral pulmonary embolism causing chronic pulm HTN and right heart strain--apprec pulm/IR--s/p lytic therapy--CM pricing Eliquis--pt was on Coumadin years ago for intracardiac thrombus--US legs shows Nonocclusive thrombus within
the popliteal veins bilaterally--apprec heme, checking antiphospholipid antibodies and lupus anticoagulant--will need lifelong anticoagulation--heme OK with Eliquis--Thoracic arteriogram/Pulmonary arteriogram-- Findings overall are suggestive of
chronic thromboembolic pulmonary hypertension, rather than pulmonary hypertension related to acute emboli. Chronic emboli are less likely to respond to thrombolysis--wean O2 to off if able
acute (and presumed chronic) hypoxemic respiratory failure--was on 6L and needs 2L at home--chronic thromboembolism can cause pulm HTN and chronic hypoxia--qualifies for home O2
Pulmonary hypertension likely secondary to chronic thromboembolic burden--History of intracardiac blood clot about 20 years ago, treated with warfarin at that time--No known history of chronic lung disease/no history of DVT or PE- Per pulmonology:
Referral will be needed to a tertiary center where she can be manage blood pulmonary hypertension and also can be evaluated for a possible embolectomy to address CTEPH treatment- Likely will need home oxygen-will be assessed before discharge
History of non-ischemic cardiomyopathy--Dyspnea on exertion recently for a few months-Troponin negative <0.012--ECHO: LV ejection fraction is 57%, Mild to moderate left ventricular hypertrophy. Diastolic function indeterminate. 'D 'shaped
interventricular septum in systole consistent with pressure overload. Mild to moderately enlarged right ventricular size. With mildly reduced right ventricular systolic function.Trace mitral regurgitation. Trileaflet aortic valve with normal
leaflet excursion. No aortic regurgitation is seen.Moderate tricuspid regurgitation.
Essential HTN --hold meds--follow BP
Hypomagnesemia--replete as needed
Chronic LBBB/Hyperlipidemia/Mild Intermittent Asthma--all stable
DVT proph
code status--FULL CODE
Original Note:
Today's Communication/Plan
-
-Home oxygen need assessment ordered
-Wean oxygen as able to
-Dc ed heparin
-Started Eliquis 10 mg BID as loading dose
-Mg replaced
Assessment / Plan
Assessment / Plan
#Acute on highly possibly chronic bilateral pulmonary embolism
-PERT alert given at ER arrival
-CT chest: Severe chronic pulmonary thromboembolism with large eccentric pulmonary thromboemboli in both the right and left pulmonary arteries causing luminal narrowing, pulmonary hypertension, and RIGHT HEART STRAIN.
- Thoracic arteriogram/Pulmonary arteriogram:(ultrasound-guided access of the right common femoral vein): Left pulmonary arterial pressure measured 79/27, mean 47 mmHg.Left pulmonary arteriogram demonstrated a central nonocclusive filling defect.
There was relatively well-preserved parenchymal perfusion of the left lung. Findings overall are suggestive of chronic thromboembolic pulmonary hypertension, rather than pulmonary hypertension related to acute emboli. Chronic emboli are less likely
to respond to thrombolysis.
-Bilateral lower extremity US: Nonocclusive thrombus within the popliteal veins bilaterally
-Pulmonology and IR on board
-Patient evaluated by IR and sent an ultrasound-guided catheter from right femoral vein/started on tPA and heparin on 02/11/2025 with a plan to continue until 02/12/2025 morning and check clot burden
Received infusion of thrombolysis and heparin via catheter and seen for follow-up IR evaluation today morning. Considered patient having CTEPH based on overall findings per IR and pulmonology
- Continue to monitor in ICU
- Supplemental oxygen as needed to keep oxygen saturation above 90%-Wean as able to
-Oncology was consulted given history of intracardiac thrombus treated with warfarin 20 years ago: agreed with Eliquis as anticoagulant -ordered antiphospholipid antibodies
- insurance risk manager on board: Will check pricing with the patient- patient will need long-term anticoagulant use
-Started Eliquis 10 mg BID as loading dose for 7 days following will continue 5 mg BID
#Pulmonary hypertension likely secondary to chronic thromboembolic burden
-History of intracardiac blood clot about 20 years ago-treated with warfarin at that time
-No known history of chronic lung disease/no history of DVT or PE
- Patient will need follow-up with pulmonology
- Per pulmonology: Referral will be needed to a tertiary center where she can be manage blood pulmonary hypertension and also can be evaluated for a possible embolectomy to address CTEPH treatment
- Home oxygen need was assessed (need home oxygen use-supervisor case loading working on it
# History of non-ischemic cardiomyopathy
-Dyspnea on exertion recently for a few months
-Troponin negative <0.012
-Patient`s recent worsening of dyspnea may be related to her chronic pulmonary embolism
-ECHO: LV ejection fraction is 57%, Mild to moderate left ventricular hypertrophy. Diastolic function indeterminate. 'D 'shaped interventricular septum in systole consistent with pressure overload. Mild to moderately enlarged right ventricular
size. With mildly reduced right ventricular systolic function.Trace mitral regurgitation. Trileaflet aortic valve with normal leaflet excursion. No aortic regurgitation is seen.Moderate tricuspid regurgitation.
-Be cautious with IV fluids resuscitation
-Be cautious with diuresis
-Monitor weight changes/follow-up I/Os
#Essential HTN
-BP on lower side
-Hold Aldactone and lisinopril for now
-Consider starting gradually if patient's BP has room
# Hypomagnesemia
- Placed with 2 g
- Follow-up magnesium levels
- Replace as needed
# Chronic LBBB
# Hyperlipidemia
#Mild Intermittent Asthma
Patient is in need of oxygen at 2 liters/minute via nasal cannula continuously due to pulse oximetry of 86% on room air at rest. Oxygen will help to improve hypoxemia. Patient is mobile within the home. DuoNeb therapy has been tried and is
ineffective in treating hypoxemia related symptoms. Oxygen is needed to improve symptoms.
DVT Px: Eliquis
Full code
Anticipated Discharge: 24 - 48 hours
Subjective/Interval History
-
Date of Service: February 13, 2025
Feeling some better regarding her shortness of breath. No new complaints.
Objective Data
-
Labs:
Laboratory Results
02/12/25 02/13/25 02/13/25
23:08 05:10 08:00
WBC 6.6
Hgb 12.9
Hct 36.9 L
Plt Count 117 L
PT 16.6 H
INR 1.31
APTT > 200 H* Pending
Sodium 138
Potassium 4.7
Chloride 112 H
Carbon Dioxide 22
BUN 13
Creatinine 0.7
Glucose 72
Calcium 8.7
Total Bilirubin 1.9 H
AST 27
ALT 12
Alkaline Phosphatase 55
Vital Signs:
Vital Signs
Temp Pulse Resp BP Pulse Ox
97.9 F 69 15 95/61 91
02/13/25 07:18 02/13/25 06:30 02/13/25 06:30 02/13/25 06:00 02/13/25 04:00
I&O
02/12/25 02/13/25 02/14/25
06:59 06:59 06:59
Intake Total 970 / 970 705 / 705
Output Total 200 / 200 1200 / 1200
Balance 770 / 770 -495 / -495
Review of Systems
-
History Source: Patient
EENT: Reports No Symptoms Reported
Respiratory: Reports Other (See HPI)
Cardiac: Reports No Symptoms
Abdomen/GI: Reports No Symptoms
Genitourinary: Reports No Symptoms
Musculoskeletal: Reports Edema
Skin: Reports Other (Bruises )
Neuro: Reports No Symptoms
Physical Exam
-
General: Well Developed, Well Nourished and Appears Chronically Ill
HEENT: Normocephalic and Atraumatic
Respiratory: Clear to Auscultation
Cardiac: Regular Rhythm and S1/S2
GI: Soft, Nontender and Nondistended
Musculoskeletal: No Clubbing, No Cyanosis and Edema, Left Upper Extrem
Skin: Warm
Neuro: Awake, Alert and Oriented
Psych: Calm
--- NOTE | 2025-02-13 07:29 | W.PN.INTV ---
Today's Communication / Plan
Recommendations
- Transition to Eliquis
- d/c Heparin
- Titrate O2 as tolerated, goal >90%
- Discharge planning, tentatively 02/14
- Will arrange out patient Pulmonary follow up
Assessment
-
#1. Acute on suspect Chronic PE, ?CTEPH. Based on review of CT scan and findings during catheter directed attempted thrombolysis, there appears to be at least some degree of chronicity of clot raising the possibility of chronic thromboembolic
pulmonary hypertension.
- s/p Catheter directed thrombolysis, post procedure PA pressure still high
- Will need long-term anticoagulation
- Switch to Eliquis
- Titrate O2 as tolerated
#2. 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
- Considering there is some suspicion of chronicity of thromboembolic disease, patient might have underlying CTEPH. Patient reports that 20 years ago she was diagnosed with an intracardiac blood clot and was treated with Coumadin for few months.
No known history of DVT or PE in the past.
- Anticoagulation, O2 support
- Will need long-term anticoagulation and eventual referral to a tertiary center which manages pulmonary hypertension as patient might be a candidate for embolectomy for definitive treatment for CTEPH. Will arrange as out patient.
#3. Dyspnea on exertion.
- Suspect patient's worsening dyspnea on exertion and pedal edema is related to underlying developing pulmonary hypertension which is likely group 4
- Patient already has a D septum, avoid additional IV fluid resuscitation, if hemodynamics permit will pursue gentle diuresis. Holding Aldactone and lisinopril for now
- Continue O2 support, keep saturations above 90%.
- Likely will need home oxygen
Other medical diagnoses:
- Chronic LBBB
- H/o non-ischemic cardiomyopathy with recovered EF
- HLD
- Mild Intermittent Asthma
Critical Care time 45 mins -- The patient is admitted for acute critical illness for the treatment of vital organ failure and/or prevention of further life-threatening conditions. Total care includes time spent in review of history, physical exam,
medications, hemodynamic/ventilator parameters, laboratory data, imaging and discussion with house staff, pharmacy, respiratory therapy, manager business development hospice, and nursing.
Data:
CT Chest PE Study
1. SEVERE CHRONIC PULMONARY THROMBOEMBOLISM with large eccentric pulmonary thromboemboli in both the right and left pulmonary arteries causing luminal narrowing, pulmonary hypertension, and RIGHT HEART STRAIN.
2. Mild cardiomegaly.
3. Moderate calcific atherosclerotic plaque in the left coronary artery.
4. Mild scarring/subsegmental atelectasis in the right lower lobe.
5. 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
ECHO 01/2025: Small left ventricular size. Normal systolic function. No regional wall motion abnormalities are seen.
LV ejection fraction is 57% by Ponce's method of discs.
Mild to moderate left ventricular hypertrophy. Diastolic function indeterminate.
'D 'shaped interventricular septum in systole consistent with pressure overload.
Mild to moderately enlarged right ventricular size. With mildly reduced right ventricular systolic function.
Trace mitral regurgitation.
Trileaflet aortic valve with normal leaflet excursion. No aortic regurgitation is seen.
Moderate tricuspid regurgitation.
Estimated pulmonary artery pressure of 76 mmHg assuming a right atrial pressure of 8 mmHg.
CXR 11/2021: Unremarkable
Subjective Dataa
Subjective Data
Date of Service:
Date of Service: February 13, 2025
Subjective:
Patient comfortably lying in bed, in no acute distress.
Review of Systems
Genitourinary: Other (All 14 systems reviewed and negative except as stated above in the history of present illness.)
Objective Data
Data Reviewed
Vital Signs / I&O / Oxygen:
Vital Signs
Temp Pulse Resp BP Pulse Ox
97.9 F 69 15 95/61 91
02/13/25 07:18 02/13/25 06:30 02/13/25 06:30 02/13/25 06:00 02/13/25 04:00
Intake and Output
02/12/25 02/13/25 02/14/25
06:59 06:59 06:59
Intake Total 970 / 970 705 / 705
Output Total 200 / 200 1200 / 1200
Balance 770 / 770 -495 / -495
SaO2 91
Nasal Cannula flow liters per 6
minute
Physical Exam
General: Comfortable
HEENT: Normocephalic
Cardiovascular: S1-S2 and Regular Rhythm
Respiratory: Clear and Non-Labored Respirations
GI: Soft and Non Distended
Neurology: Awake and Alert
Skin: Warm
Labs/Micro/Reports
Lab Data
02/13/25 05:10
02/13/25 05:10
Laboratory Results
02/12/25 02/12/25 02/12/25
14:52 15:45 23:08
PT
INR
APTT 29.8 Cancelled > 200 H*
02/13/25
05:10
PT 16.6 H
INR 1.31
APTT
--- NOTE | 2025-02-13 08:31 | CON.ONC ---
Consultation
-
Date Consultation Requested: 02/13/25
Date Consultation Performed: 02/13/25
Requesting Provider: Margaux Stewart
Performing Provider: Veronika Harris
Reason for Consultation: CTEPH
Impression
Impression
CTEPH
bilateral popliteal thrombi, non-occlusive
h/o right hip replacement, 2020
h/o 'clot in heart' around 2004, treated w/ warfarin
Macrocytosis
Thrombocytopenia
Plan
Plan
Agree w/ Eliquis anticoagulation
Will check antiphospholipid antibodies, though APLS is doubted
Hip replacement surgery is a risk factor for CTEPH
Will check B12/folate, but elevated MCV may be from alcohol use
Slight thrombocytopenia likely from tPA - monitor CBC
Will arrange outpatient heme f/u after discharge
Patient History
History of Present Illness
This is an 79 yo F who was sent to the ER after outpatient echo showed significant pulm HTN. CTA showed extensive bilateral pulmonary embolism. She was taken to IR for lysis, though clot burden appeared low, and chronic, suggestive of CTEPH. Doppler
US showed non-occlusive thrombus in popliteal veins bilaterally. She was switched from heparin to Eliquis this am.
She's been having gradual worsening of dyspnea for months, also leg swelling. She reports history of 'clot in the heart' 20 years ago for which she was treated with warfarin.
She's a non-smoker. No family h/o VTE. No recent surgery, trauma, immobilization, etc.
She notes lactose intolerance, which is a newer issue for her. No weight loss. She no longer gets mammograms or colonoscopy.
CBC shows WBC of 6.6, hgb 12.9, platelets 117. MCV is 102.8.
Past-Medical/Surgical History
PMH/PSH - HTN, cardiomyopathy w/ recovered EF, hip replacement
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
FH - no fam h/o VTE
Patient Medication
�Medication �Instructions �Recorded �Confirmed �Last Taken �Type
carvedilol 12.5 mg tablet 12.5 mg PO BID Heart Failure 04/10/21 02/11/25 02/11/25 History
cranberry concentrate-ascorbic 2 tab PO DAILY Supplement 04/10/21 02/11/25 02/11/25 History
acid 12,600 mg-20 mg capsule
multivitamin with folic acid 400 2 tab PO DAILY Supplement 04/10/21 02/11/25 02/11/25 History
mcg tablet (Tab-A-Freda)
multivitamin,min-ferrous fumarate 2 tab PO DAILY Supplement 04/10/21 02/11/25 02/11/25 History
3.3 mg-folic 25 mcg-herb tablet
(Hair, Skin and Nails Advanced)
s-adenosylmethionine 200 mg tablet 200 mg PO DAILY Supplement 04/10/21 02/11/25 02/11/25 History
(PRECIOUS-e)
coenzyme Q10 10 mg capsule (Co 10 mg PO DAILY ##0 04/16/21 02/11/25 02/11/25 Rx
Q-10)
omega 5-hrw-uie-fish oil 300 2 tab PO DAILY ##0 04/16/21 02/11/25 02/11/25 Rx
mg-1,000 mg capsule (Fish Oil)
spironolactone 25 mg tablet 25 mg PO DAILY ##0 04/16/21 02/11/25 02/11/25 Rx
cholecalciferol (vitamin D3) 25 25 mcg PO DAILY Supplement 02/11/25 02/11/25 02/11/25 History
mcg (1,000 unit) tablet
ibuprofen 200 mg tablet 200 mg PO DAILY Pain 02/11/25 02/11/25 02/11/25 History
lisinopril 10 mg tablet 10 mg PO DAILY Blood Pressure 02/11/25 02/11/25 02/11/25 History
Active Medications
Generic Name Dose Route Start Last Admin
Trade Name Freq PRN Reason Stop Dose Admin
Acetaminophen 650 mg 02/11/25 18:17
Acetaminophen 325 Mg Tablet PO 03/11/25 18:16
Q4HPRN PRN
mild pain/temp > 100.4 F
Apixaban 10 mg 02/13/25 08:00
Apixaban (Eliquis) 5 Mg Tablet PO 02/19/25 20:01
BID KERA
Docusate Sodium 100 mg 02/11/25 20:00 02/12/25 19:36
Docusate Sodium 100 Mg Capsule PO 03/11/25 19:59 100 mg
BID KERA Administration
Pantoprazole Sodium 40 mg 02/12/25 08:00 02/12/25 12:24
Pantoprazole 40 Mg Delayed Release Tablet PO 03/12/25 07:59 40 mg
DAILY KERA Administration
Sodium Chloride 0 flush 02/11/25 19:00
Sodium Chloride 0.9% (Flush) Syringe IV 03/11/25 18:59
PER PROTOCOL KERA
Review of Systems
-
All Other Systems: Not reviewed unless documented
Physical Exam
-
General: Well Developed, Well Nourished, No Apparent Distress, Comfortable and Conversant
HEENT: Negative Jaundice
Cardiology: Normal Sinus Rhythm
Pulmonary: Clear
Musculoskeletal: Edema, Right Lower Extrem (trace) and Edema, Left Lower Extrem (trace)
Neurology: Non Focal, No Lateralizing Symptoms and No Word Finding Difficulty
Skin: Warm and Dry
Hematologic / Lymphatic: No Lymphadenopathy
Psych: Calm and Intact Judgement/Insight
Labs
Lab Results
WBC 6.6 10^3/uL (4.8-10.8) 02/13/25 05:10
RBC 3.59 10^6/uL (4.20-5.40) L 02/13/25 05:10
Hgb 12.9 g/dL (12.0-16.0) 02/13/25 05:10
Hct 36.9 % (37.0-47.0) L 02/13/25 05:10
MCV 102.8 fL (81.0-99.0) H 02/13/25 05:10
MCH 35.9 pg (27.0-31.0) H 02/13/25 05:10
MCHC 35.0 g/dL (33.0-37.0) 02/13/25 05:10
RDW 13.0 % (11.5-14.5) 02/13/25 05:10
Plt Count 117 10^3/uL (130-400) L 02/13/25 05:10
MPV 11.0 fL (7.4-10.4) H 02/13/25 05:10
Abs Immat Gran (auto) 0.0 10^3/uL (0-0.05) 02/11/25 12:47
Absolute Neuts (auto) 5.4 10^3/uL (1.4-6.5) 02/11/25 12:47
Absolute Lymphs (auto) 1.2 10^3/uL (1.2-3.4) 02/11/25 12:47
Absolute Monos (auto) 0.5 10^3/uL (0.1-0.6) 02/11/25 12:47
Absolute Eos (auto) 0.2 10^3/uL (0-0.7) 02/11/25 12:47
Absolute Basos (auto) 0.0 10^3/uL (0-0.2) 02/11/25 12:47
Immature Gran % 0.1 % (0-0.5) 02/11/25 12:47
Neutrophils % 74.6 % (42.2-75.2) 02/11/25 12:47
Lymphocytes % 16.4 % (20.5-51.1) L 02/11/25 12:47
Monocytes % 6.2 % (1.7-9.3) 02/11/25 12:47
Eosinophils % 2.1 % (0-6) 02/11/25 12:47
Basophils % 0.6 % (0-2) 02/11/25 12:47
Creatinine 0.7 mg/dL (0.6-1.0) 02/13/25 05:10
Vital Signs
Vital Signs
Temp Pulse Resp BP Pulse Ox
97.9 F 69 15 95/61 91
02/13/25 07:18 02/13/25 06:30 02/13/25 06:30 02/13/25 06:00 02/13/25 04:00
[2025-02-13] MEDS: TYLENOL 650 MG PO (08:56)
[2025-02-13] MEDS: COLACE PO (08:57)
[2025-02-13] MEDS: PROTONIX PO (08:57)
[2025-02-13] MEDS: ELIQUIS 10 MG PO ×2 (08:58→17:19)
--- NOTE | 2025-02-13 09:04 | CM ---
Addendum entered by Evelia Hernandez 02/13/25 12:41:
Delivery of home O2 by 4pm. Please remind patient to notify [employer] when patient is discharging so that home O2 system can be delivered to home.
Please tell pt they must answer their phones as well as call [employer] before leaving hospital and choose after hours prompt to dispatch jukebox route driver to home.
[phone]
Addendum entered by Evelia Hernandez 02/13/25 12:24:
Patient provided with coupon, nurse placed in chart. Patient IMM completed and signed form on chart. Patient confirmed for VN to follow on friday and referral pending for home O2 to [facility]. Physician aware.
Addendum entered by Evelia Hernandez 02/13/25 11:34:
referral sent to [facility] and to [facility] for home O2. CM will confirm services and provide patient with coupon, IMM.
Original Note:
Patient seen at bedside in ICU. Patient plan for PTassessment and wants to go home with possible VN. CM provided coupon to physician for Eliquis. CM will continue to follow for discharge planning needs.
Plan; home with VN vs SNF
--- NOTE | 2025-02-13 09:11 | SUR.OPER ---
0700 Patient examined while in bed. On O2 6L via nasal canula.
- AAO x3
- Normal Sinus Rhythm 70's pedal pulses present +1 ankle edema b/l
- On O2 6L via nasal canula. Non Dyspnea noted No cough Denies feeling SOB . Lungs diminished through
- Abdomen soft non tender; Halitosis noted even after oral care. tolerating diet No N/V
- Continent of urine Urine clear yellow
- skin intact Peripheral line RT and left flushed capped
- Pain: whole body pain secondary to authorities pain relieved post Tylenol
- Patient ambulates in a room with walker; ALBA radford; call teran within reach
-Plan to titrate O2 as tolerated for So2 >90%
[2025-02-13 11:41] LABS: Folate > 20.0 ng/ml (2.76-20); Vitamin B12 717 pg/ml (239-931)
--- NOTE | 2025-02-13 11:45 | PTCARENOTE ---
Transfer:
- Patient transfer to room # 434-1 via w/c while on oxygen 2L. 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
- Report provided prior to transfer
--- NOTE | 2025-02-13 12:53 | W.DCSUMMARY ---
Addendum entered and electronically signed by Margaux Stewart MD 02/13/25 17:54:
Read, reviewed, and agree. See same day progress note for additional details. Time spent coordinating care, DC planning, review of DC plan of care with resident, transition of care, review of records in EMR, med rec, consults, notes, d/w
consultants, nursing, family, and CM = 36 minutes
Original Note:
Discharge Summary
Discharge Data
Date of Admission: 02/11/25
Date of Discharge: 02/13/25
-
Pending Results: Yes
Additional Pending Results:
Needs follow up with hematology-oncology
Hospital Course
Disposition :Home
Primary care physician : Margaux Zheng CRNP
Principal Discharge diagnosis : Acute on chronic bilateral pulmonary embolism, Pulmonary hypertension, bilateral Lower Extremity DVT, hypomagnesemia
Chronic Discharge diagnosis : History of non-ischemic cardiomyopathy, Essential hypertension, Chronic left bundle branch block, Hyperlipidemia, Mild intermittent asthma
Hospital Course :
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 Patient was obtained an
echocardiogram earlier this week for her cardiology follow-up and the result was concerning for a possible pulmonary embolism. At ER admission, patient was obtained a CTA which showed bilateral extensive clot burden with pulmonary embolism.
Therefore PERT team was activated by ER team. Bid Analyst and IR physicians assessed the patient for pulmonary embolism. IR team decided treatment with catheter directed thrombolysis with heparin. And ultrasound-guided catheter was sent from
patient's right femoral vein to pulmonary thrombus area and patient was given thrombolytics and heparin through that catheter with a plan to reevaluate the following day. On 02/12/2025 morning, IR reevaluated the patient considering overall findings
are most suggestive of chronic thromboembolic pulmonary hypertension and removed pleural catheter from the site. The patient was continued on heparin drip with protocol with a plan to switch heparin to oral anticoagulation. Patient was also
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 Hematology and oncology ordered antiphospholipid panel and agreed to start Eliquis. The patient was started on Eliquis loading dose of
10 mg twice daily for 7 days and will continue taking Eliquis dose of 5 mg twice daily. inside sales territory manager helped to the patient with pricing of the Eliquis. Patient was placed on supplemental oxygen at admission and evaluated for home oxygen need.
Patient is qualified for home oxygen use which was reported on her progress note. Patient's portable tank delivered today to her home before patient left for the hospital, per patient report.
The patient is recommended to follow-up with pulmonology and hematology and her primary care physician.
# Bilateral lower extremity DVT: Patient noticed swelling on her left leg about 2 weeks ago but she was not tested for it at the outpatient setting. Bilateral lower extremity Doppler ultrasound was obtained which noted' Nonocclusive thrombus within
the popliteal veins bilaterally.' Patient was started on Eliquis to address her pulmonary embolism which will be treatment for her DVT too.
#Hypomagnesemia: Patient's potassium level was found low to 1.5 and it was replaced.
#Essential hypertension: Patient was found hypotensive at the admission and had her blood pressure levels on the lower side during hospitalization. Therefore her blood pressure medications including carvedilol and lisinopril were on hold.
She was not restarted these medications during the hospitalization and recommended to see her PCP to decide to continue these medications or not.
Other chronic problems include History of non-ischemic cardiomyopathy, Chronic left bundle branch block, Hyperlipidemia and Mild intermittent asthma. His problems were stable during hospitalization and were treated as able to.
Important imaging findings :
02/12/2025 Exams: US Periph Venous LOWER Ext Jabari
EXAMINATION: Bilateral lower extremity duplex venous ultrasound
CPT: 79050
INDICATION: Lower extremity edema. 79-year-old. Pulmonary embolism.
COMPARISON: CT angiography of the chest from February 11, 2025. No previous lower extremity venous ultrasound is available.
FINDINGS: Duplex venous ultrasound of both lower extremities is performed.
On the right, there is nonocclusive thrombus involving the right popliteal vein. The posterior tibial veins are patent. The right femoral and common femoral veins are patent as well as the proximal right greater saphenous vein.
On the left, there is also nonocclusive thrombus involving the left popliteal vein. The left posterior tibial veins and peroneal veins are patent. The left femoral and common femoral veins are patent. The proximal left greater saphenous vein is
patent
Pulsatility of spectral Doppler waveforms bilaterally, suggesting elevated right heart pressure and/or tricuspid regurgitation.
IMPRESSION: Nonocclusive thrombus within the popliteal veins bilaterally, in this patient with a history of pulmonary embolism.
02/11/2025 pulmonary and thoracic arteriogram
XA Angiography Pulmonary Uni; XA Christa Cath Seg. Pa; XA U/s Guide Cvad
EXAMINATION: Ultrasound-guided access of the right common femoral vein, left pulmonary pressure measurement, left pulmonary arteriogram.
INDICATION: Sub-massive pulmonary embolism. Minimally occlusive emboli on CT, however there was evidence of right heart strain and pulmonary hypertension. Elevated BNP.
COMPARISON: CT angiogram of the chest 02/11/2025.
TECHNIQUE: Following detailed explanation of the procedure and potential risks (including bleeding, infection, cardiac arrhythmia, hemorrhagic stroke, among others), the patient agreed to proceed.
The patient was placed supine on the interventional radiology table, and the right groin was prepped and draped in the normal sterile fashion. Maximum sterile barrier techniques were used, including wearing cap and mask and sterile gown and sterile
gloves and a large sterile sheet and hand hygiene and 2% chlorhexidine for cutaneous antisepsis.
A time out procedure was performed with all personnel present, to verify correct patient and correct procedure. Preprocedure ultrasound demonstrated patency and compressibility of the right common femoral vein. Sonographic images were stored.
Following cutaneous anesthesia using 2% lidocaine, real-time ultrasound guidance was utilized to guide puncture of the right common femoral vein with a 21-gauge micropuncture needle. There was real-time sonographic visualization of the needle during
vessel entry. A 4 Samoan transitional dilator was placed over the 0.018' wire, and an 0.035' guidewire was then advanced to the level of the IVC. A 7 Samoan sheath was then placed over the wire into the right common femoral vein. A curved pigtail
catheter was placed over the guidewire, and manipulated under fluoroscopic guidance into the left main pulmonary artery. Left pulmonary arterial pressures were measured at 79/27, measuring 47 mmHg.
A left pulmonary arteriogram was then performed.
Decision was made not to catheterize the right main pulmonary artery, as there were only minimal nonocclusive emboli within the right main pulmonary artery on today's CTA.
The patient tolerated the procedure well.
Under direct physician supervision, Versed and Fentanyl were administered intravenously for moderate sedation. Medication administration and patient monitoring was performed by an independent board certified registered nurse. The physician spent 30
minutes of in person sedation time with the patient.
MEDICATIONS: Versed 1 mg IV, Fentanyl 50 mcg IV.
Automated dose reduction technique was utilized for this procedure.
FLUOROSCOPY TIME: 1.9 minutes.
Air kerma: 23.05 mGy.
Number of images acquired: 11.
IMPRESSION:
1. Left pulmonary arterial pressure measured 79/27, mean 47 mmHg.
2. Left pulmonary arteriogram demonstrated a central nonocclusive filling defect. There was relatively well-preserved parenchymal perfusion of the left lung.
3. Findings overall are suggestive of chronic thromboembolic pulmonary hypertension, rather than pulmonary hypertension related to acute emboli. Chronic emboli are less likely to respond to thrombolysis.
Electronically signed by Marcos Green MD, 02/11/2025 5:44 PM
Dictated By: Marcos Green MD.
Dictated Date & Time: 02/11/25 0842
02/11/[address]
Exams: CT Chest PE Study
CPT: 09064
PROCEDURE: CHEST CTA WITH IV CONTRAST
CLINICAL INDICATION: Shortness of breath. Dyspnea on exertion. Right ventricular dilation and right heart dysfunction on echocardiogram.
TECHNIQUE: A CTA examination of the chest was performed following the intravenous administration of nonionic contrast material. Images were acquired with attention of the pulmonary arteries. Coronal and sagittal reformatted images were obtained. 3-D
reformatted images were obtained. Automatic exposure control radiation dose reduction technology was utilized.
COMPARISON: Comparison is made with a radiographic examination of the chest performed 12/11/2021.
FINDINGS:
PULMONARY ARTERIES: There is a large eccentric pulmonary arterial thrombus in the left main pulmonary artery located in the superior aspect of the pulmonary arterial lumen and extending into the proximal left upper lobe pulmonary artery. There is a
large eccentric pulmonary arterial thrombus in the inferior aspect of the right main pulmonary artery. There is approximately 50% diameter luminal narrowing in both the right and left pulmonary artery secondary to the large eccentric thrombi. The
main pulmonary artery is distended measuring 4.2 cm diameter which is larger than the adjacent ascending thoracic aorta (3.3 cm diameter).
The right ventricle measures 5.7 cm in short axis dimension. The left ventricle measures 5.2 in short axis dimension. The right ventricular/left ventricular (RV/LV) ratio measures 1.1 (normal less than 0.9). This is consistent with right heart
strain. The right atrium is severely distended. There is reflux of contrast material into the intrahepatic IVC and hepatic veins.
Branching Order Level of the Most Proximal Level of Pulmonary Embolus: Right and Left Main Pulmonary Arteries
MEDIASTINUM: The heart is mildly enlarged. There is no calcification in the aortic valve. There is moderate calcific atherosclerotic plaque in the left coronary artery. There is mild calcific atherosclerotic plaque in the thoracic aorta. There is no
pericardial effusion. There is no mediastinal, hilar, supraclavicular, or axillary lymphadenopathy.
LUNGS: The central airways are patent without evidence for obstruction. There is no bronchiectasis. There is a mild amount of subpleural airspace consolidation in the posterior basilar segment of the right lower lobe which is likely a mild amount of
scarring and subsegmental atelectasis. There is an azygous fissure in the medial aspect of the right lung apex. There is mild subpleural subsegmental atelectasis and scarring in the inferior segment of the lingula. There is no pleural effusion or
pneumothorax.
UPPER ABDOMEN: There is no upper abdominal ascites or pneumoperitoneum. There is a small sliding-type hiatal hernia.
SKELETON: There is severe bilateral osteoarthritis of the glenohumeral joints. There is a mildly exaggerated upper thoracic kyphosis. There is severe discogenic degenerative disease at C5/C6 and C6/C7. There are large multilevel bridging anterior
vertebral body endplate osteophytes throughout the thoracic spine consistent with diffuse idiopathic skeletal hyperostosis (DISH).
IMPRESSION:
1. SEVERE CHRONIC PULMONARY THROMBOEMBOLISM with large eccentric pulmonary thromboemboli in both the right and left pulmonary arteries causing luminal narrowing, pulmonary hypertension, and RIGHT HEART STRAIN.
2. Mild cardiomegaly.
3. Moderate calcific atherosclerotic plaque in the left coronary artery.
4. Mild scarring/subsegmental atelectasis in the right lower lobe.
5. 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
The findings were communicated to Arthur Orourke DO of the Emergency Department on 02/11/2025 at 3:22 PM through [employer].
Electronically signed by Mike Robbins MD, 02/11/2025 3:26 PM
Procedure findings :
02/11/2025 EXAMINATION: Ultrasound-guided access of the right common femoral vein, left pulmonary pressure measurement, left pulmonary arteriogram.
INDICATION: Sub-massive pulmonary embolism. Minimally occlusive emboli on CT, however there was evidence of right heart strain and pulmonary hypertension. Elevated BNP.
COMPARISON: CT angiogram of the chest 02/11/2025.
TECHNIQUE: Following detailed explanation of the procedure and potential risks (including bleeding, infection, cardiac arrhythmia, hemorrhagic stroke, among others), the patient agreed to proceed.
The patient was placed supine on the interventional radiology table, and the right groin was prepped and draped in the normal sterile fashion. Maximum sterile barrier techniques were used, including wearing cap and mask and sterile gown and sterile
gloves and a large sterile sheet and hand hygiene and 2% chlorhexidine for cutaneous antisepsis.
A time out procedure was performed with all personnel present, to verify correct patient and correct procedure. Preprocedure ultrasound demonstrated patency and compressibility of the right common femoral vein. Sonographic images were stored.
Following cutaneous anesthesia using 2% lidocaine, real-time ultrasound guidance was utilized to guide puncture of the right common femoral vein with a 21-gauge micropuncture needle. There was real-time sonographic visualization of the needle during
vessel entry. A 4 Samoan transitional dilator was placed over the 0.018' wire, and an 0.035' guidewire was then advanced to the level of the IVC. A 7 Samoan sheath was then placed over the wire into the right common femoral vein. A curved pigtail
catheter was placed over the guidewire, and manipulated under fluoroscopic guidance into the left main pulmonary artery. Left pulmonary arterial pressures were measured at 79/27, measuring 47 mmHg.
A left pulmonary arteriogram was then performed.
Decision was made not to catheterize the right main pulmonary artery, as there were only minimal nonocclusive emboli within the right main pulmonary artery on today's CTA.
The patient tolerated the procedure well.
Under direct physician supervision, Versed and Fentanyl were administered intravenously for moderate sedation. Medication administration and patient monitoring was performed by an independent board certified registered nurse. The physician spent 30
minutes of in person sedation time with the patient.
MEDICATIONS: Versed 1 mg IV, Fentanyl 50 mcg IV.
Automated dose reduction technique was utilized for this procedure.
FLUOROSCOPY TIME: 1.9 minutes.
Air kerma: 23.05 mGy.
Number of images acquired: 11.
IMPRESSION:
1. Left pulmonary arterial pressure measured 79/27, mean 47 mmHg.
2. Left pulmonary arteriogram demonstrated a central nonocclusive filling defect. There was relatively well-preserved parenchymal perfusion of the left lung.
3. Findings overall are suggestive of chronic thromboembolic pulmonary hypertension, rather than pulmonary hypertension related to acute emboli. Chronic emboli are less likely to respond to thrombolysis.
Discharge Plan
-
Patient Disposition: Home (Routine Discharge)
Discharge Diagnosis/Procedures: Acute on chronic bilateral pulmonary embolism
Pulmonary hypertension
History of non-ischemic cardiomyopathy
Essential hypertension
Hypomagnesemia
Chronic left bundle branch block
Hyperlipidemia
Mild intermittent asthma
Condition: Fair
Diet: Low Cholesterol
Activity: As tolerated
Driving Restrictions: As prior to admission
Referrals:
Samira Liu MD [Active] - in two weeks (Patient will need follow-up)
Margaux Zheng CRNP [Family Provider] - in less than 1 week (Please follow-up with your primary care physician to be checked for BMP and CBC and to decide to restart your medications including carvedilol, lisinopril. These medications were
hold due to soft blood pressure)
Veronika Harris MD [Active] - in one to two weeks (Please follow-up lab results including antiphospholipid syndrome with hematology)
Prescriptions:
New
Eliquis 5 mg Tablet
10 mg PO BID 7 Days Qty: 26 0RF
pantoprazole 40 mg Tablet,Delayed Release (Dr/Ec)
40 mg PO DAILY 30 Days Qty: 30 0RF
Eliquis 5 mg tablet
5 mg PO BID 45 Days Qty: 90 0RF
Rx Instructions:
Patient will complete 10 mg BID for 7 days. Following will start taking 5mg BID on 02/20/2025
Continued
PRECIOUS-e 200 MG tablet
200 mg PO DAILY
Hair, Skin and Nails Advanced 1 EACH tablet
2 tab PO DAILY
cranberry conc-ascorbic acid 1 EACH capsule
2 tab PO DAILY
multivitamin with folic acid [Tab-A-Freda] 1 TABLET tablet
2 tab PO DAILY
coenzyme Q10 [Co Q-10] 10 MG capsule
10 mg PO DAILY Qty: 0 0RF
Rx Instructions:
Resume in 1 week.
spironolactone 25 MG tablet
25 mg PO DAILY Qty: 0 0RF
Rx Instructions:
Hold if systolic blood pressure <130 while on Oxycodone.
omega 4-kjd-rax-fish oil [Fish Oil] 1 EACH capsule
2 tab PO DAILY Qty: 0 0RF
Rx Instructions:
Resume in 1 week.
cholecalciferol (vitamin D3) 25 mcg (1,000 unit) Tablet
25 mcg PO DAILY
Held
carvedilol 12.5 MG tablet
12.5 mg PO BID
Hold Instructions: Resume on 02/17/25. Hold this medication with BP lower than90/60 and see your PCP to decide to restart this medication
lisinopril 10 mg tablet
10 mg PO DAILY
Hold Instructions: Resume on 02/17/25. Hold this medication with BP lower than90/60 and see your PCP to decide to restart this medication
Discontinued
ibuprofen 200 mg Tablet
200 mg PO DAILY
Discharge Orders:
Discharge Patient (As Directed); Ordered 02/13/25
Ordered By: Franca Osman
Discharge Date and Time
Print Language: FILIPINO
[2025-02-13] MEDS: MAGNESIUM SULFATE 50 IV (13:56)
[2025-02-15 00:35] LABS: Beta-2-Glycoprotein I Ab. IgG 11 SGU (<=20); Beta-2-Glycoprotein I Ab. IgM <10 SMU (<=20)
[2025-02-15 20:19] LABS: Cardiolipin IgA Antibody <10 APL (<=11); Cardiolipin IgM Antibody <10 MPL (<=12); Cardiolipin Igg Antibody <10 GPL (<=14)
[2025-02-17 01:08] LABS: Anti-Xa Qualitative Interp Present (Not Present); Anticoagulant Med Neutralizati DOAC-Stop (Not Performed); Hexagonal Phospholipid Confirm Not Performed s (<=7.9); Neutralized PTT-LA Ratio Not Performed (<=1.20); Neutralized dRVTT Screen Ratio 0.91 (<=1.20); PTT-LA Ratio 1.16 (<=1.20); Prothrombin Time 18.1 s (12.0-15.5); Thrombin Time Not Performed s (<=19.5); dRVTT 1.1 Mix Ratio Not Performed (<=1.20); dRVTT Confirmation Ratio Not Performed (<=1.20); dRVTT Screen Ratio 1.58 (<=1.20)
== END 2025-02-13 18:19 | disposition home health service (06) | DRG 176 ==
LOC: 4 WEST ACU 16:18
PROVIDERS: Emergency Medicine; Radiology Vascular & Interventional Radiology; Student in an Organized Health Care Education/Training Program; ADMITTING PHYSICIAN Internal Medicine; ATTENDING PHYSICIAN Internal Medicine; CONSULT PHYSICIAN Internal Medicine Hematology & Oncology; EMERGENCY PHYSICIAN Emergency Medicine; FAMILY PHYSICIAN Nurse Practitioner Adult Health; OTHER PHYSICIAN Internal Medicine
PROC: 3E03317 Introduction of Other Thrombolytic into Peripheral Vein, Percutaneous Approach (ICD-10-PCS; 2025-02-11)
PROC: B31T1ZZ Fluoroscopy of Left Pulmonary Artery using Low Osmolar Contrast (ICD-10-PCS; 2025-02-11)
DX: I26.99 Other pulmonary embolism without acute cor pulmonale (principal); I27.24 Chronic thromboembolic pulmonary hypertension; I50.9 Heart failure, unspecified; I11.0 Hypertensive heart disease with heart failure; E83.42 Hypomagnesemia; J45.20 Mild intermittent asthma, uncomplicated; E78.5 Hyperlipidemia, unspecified; I44.7 Left bundle-branch block, unspecified; D69.6 Thrombocytopenia, unspecified; Z86.718 Personal history of other venous thrombosis and embolism; Z79.899 Other long term (current) drug therapy; Z79.01 Long term (current) use of anticoagulants; I27.82 Chronic pulmonary embolism; D75.89 Other specified diseases of blood and blood-forming organs
CPT/HCPCS: 36015; 37214; 71275; 75741; 76937; 80048; 80053; 82607; 82746; 82962; 83735; 83880; 84100; 84484; 85025; 85027; 85379; 85610; 85613; 85730; 86146; 86147; 86850; 86900; 86901; 93005; 93306; 93970; 96374; 96376; 97163; 97167; 99291; C1769; J2997; Q9967

== ENCOUNTER → 2025-05-09 12:37 | Outpatient (REF) | payer MEDICARE, OTHER, SELFPAY | LOC: RCS 12:37 | PROVIDERS: ATTENDING PHYSICIAN Internal Medicine Cardiovascular Disease; FAMILY PHYSICIAN Nurse Practitioner Adult Health | DX: I50.32 Chronic diastolic (congestive) heart failure (principal) | CPT/HCPCS: 93306 ==

== ENCOUNTER 2025-06-17 18:15 | Inpatient (IN) | payer MEDICARE, OTHER, SELFPAY ==
[2025-06-17] VITALS (7 sets, daily range): BP systolic 92–122; BP diastolic 73–91; BMI 37.1; BMI 36.4
[2025-06-17 12:57] LABS: Hematocrit 39.8 % (37.0-47.0); Hemoglobin 13.0 g/dL (12.0-16.0); Mean Corp Hgb Conc. 32.7 g/dL (33.0-37.0); Mean Corpuscular Volume 101.3 fL (81.0-99.0); Nucleated Red Blood Cells % 0 %; Platelet Count 182 10^3/uL (130-400); Red Cell Dist. Width 16.0 % (11.5-14.5)
[2025-06-17 13:07] LABS: ALT (SGPT) 12 U/L (0-35); AST (SGOT) 23 U/L (14-36); Albumin 3.4 g/dl (3.5-5.0); Alkaline Phosphatase 74 U/L (38-126); Blood Urea Nitrogen 21 mg/dl (7-17); Calcium 9.1 mg/dl (8.4-10.2); Carbon Dioxide 23 mmol/L (22-30); Chloride 109 mmol/L (98-107); Glucose 93 mg/dl (70-99); Potassium 3.8 mmol/L (3.5-5.1); Sodium 141 mmol/L (135-145); Total Protein 6.6 g/dl (6.3-8.2); eGFR 56.25
[2025-06-17 13:09] LABS: INR 1.74; PT 20.6 Sec (11.4-14.6)
[2025-06-17 13:18] LABS: Troponin I < 0.012 ng/ml
--- NOTE | 2025-06-17 15:01 | ED.GENMED ---
Addendum entered and electronically signed by Nallely Caldera MD 06/17/25 16:19:
Chest x-ray read by me. Left-sided pleural effusion. Radiology report reviewed by me as well
Original Note:
History of Present Illness
General
Chief Complaint: Breathing Problem
Source: patient
Exam Limitations: none
Time Seen by Provider: 06/17/25 15:01
Nursing documentation reviewed up to this point in time: agreed with
History of Present Illness
History of Present Illness:
The patient is a pleasant 80-year-old female with a past medical history of asthma and hypertension who was evaluated by Dr. Junie Mendoza earlier today and sent to the ED for increased leg edema, 40 pound weight gain and shortness of breath.
Patient reports she noticed the weight gain started fairly suddenly this past summer. She reports that she was hoping it would just get better. Patient reports that every time she exerts herself, she is more short of breath. She denies chest
pain. Patient reports she has been taking her Eliquis for a history of pulmonary embolism. Patient reports that she has noticed significant swelling and redness of both of her lower legs, however, she reports this redness does not look any worse
lately and if anything looks improved. She denies fever.
Past History
Past History
ED Past Medical History: Asthma
ED Past Surgical History: Other
Social History
Tobacco: Non-smoker
Alcohol: None
Drug: None
Personal: Other
Living: other
Employment: Other
Family History
Family History: Other
Review of Systems
Review of Systems
Allergies reviewed?: Yes
All Other Systems: ROS reviewed and negative except as documented in HPI and ROS
Constitutional: Reports no symptoms
EENT: Reports no symptoms
Respiratory: Reports trouble breathing
Cardiac: Reports no symptoms
ABD/GI: Reports no symptoms
: Reports no symptoms
Musculoskeletal: Reports edema
Skin: Reports other (Redness for several months of bilateral lower legs)
Neurological: Reports no symptoms
Endocrine: Reports temp intolerance
Hematologic/Lymphatic: Reports no symptoms
Psychiatric: Reports no symptoms
Phy Exam
Physical Exam
Physical Exam:
Physical Exam
General: no apparent distress
Neck: supple. no meningeal signs. normal psoterior pharynx
Heart: s1/s2 regular rate and rhythm,
Lungs: no acute respiratory distress. clear bilaterally
Abdomen: normal bowel sounds. not tender. no CVAT
Neuro: alert and oriented. no focal neurological deficits
Skin: Moderate skin erythema of anterior bilateral lower legs. Not particularly warm or tender to the touch
Psychiatric: well kept. interactive and cooperative
Extremities: 3+ pitting edema bilateral feet, ankles and lower legs.
Scores
Heart Failure Risk
Heart Failure Risk Score: Not Applicable
Course
Orders/Labs/Results
Orders:
Orders
06/17/25 12:31
Electrocardiogram (*1) Urgent
Reason for Study: Shortness of Breath
CXR2 [CR Chest - 2 Views ] Urgent
Comment:
Reason For Exam: sob 40lb weight gain since the summer
06/17/25 12:32
EKG- Treatment ONCE
06/17/25 12:46
Complete Blood Count/With Diff Urgent
Comprehensive Metabolic Panel Urgent
NT-proBNP Urgent
PT/INR [Prothrombin Time] Urgent
Troponin I Urgent
06/17/25 15:46
Furosemide [Lasix] 40 mg IV NOW STA
Potassium Chloride [KCl] 40 meq PO NOW STA
06/17/25 15:53
Add On- LAB Urgent
Tests Added?: magnesium
Abnormal Lab Results
06/17/25
12:46
RBC 3.93 L 10^6/uL
(4.20-5.40)
MCV 101.3 H fL
(81.0-99.0)
MCH 33.1 H pg
(27.0-31.0)
MCHC 32.7 L g/dL
(33.0-37.0)
RDW 16.0 H %
(11.5-14.5)
Absolute Lymphs (auto) 1.0 L 10^3/uL
(1.2-3.4)
Lymphocytes % 14.2 L %
(20.5-51.1)
PT 20.6 H Sec
(11.4-14.6)
Chloride 109 H mmol/L
(98-107)
BUN 21 H mg/dl
(7-17)
Total Bilirubin 1.4 H mg/dl
(0.2-1.3)
Albumin 3.4 L g/dl
(3.5-5.0)
06/17/25 12:46
06/17/25 12:46
Vital Signs
Initial and Last Documented VS:
Initial Vital Signs
Temp Pulse Resp BP Pulse Ox
98.0 F 85 16 118/82 93
06/17/25 12:28 06/17/25 12:28 06/17/25 12:28 06/17/25 12:28 06/17/25 12:28
Last Documented Vital Signs
Temp Pulse Resp BP Pulse Ox
98.0 F 85 16 118/82 93
06/17/25 12:28 06/17/25 12:28 06/17/25 12:28 06/17/25 12:28 06/17/25 15:01
MDM/Problems Addressed
Differential Diagnosis Includes:
Acute CHF, acute renal failure
MDM/Problems Addressed:
Patient presents with subacute shortness of breath and bilateral leg edema
Chronic conditions affecting care:
Asthma
Acute Exacerbation and/or Progression of Chronic Illness:
Patient has no wheezing or shortness of breath at rest therefore, I feel patient's asthma stable
*Pulse Oximetry
SaO2: 93
Nasal Cannula flow liters per minute: 2
Patient hypoxic: yes
Comment: Earlier found to be 81% on room air
*EKG
Interpreted by ED Provider?: Yes
Interpretation: abnormal
Comparison EKG: no changes
Rate: normal
Rhythm: sinus arrhythmia
[place]: right axis deviation
Interval: normal interval
QRS Pattern: wide non-specific
Ischemia: non-specific ST changes
*Legal Manager Interpretation
Rate: normal
Interpretation: normal
Rhythm: sinus
*Critical Care Note
Total Time (30-74mins, 75-104mins- exclusive of procedures): Not Applicable (35 minutes of critical care given to patient including reviewing her recent cardiac echo, speaking to cardiology as well as hospitalist, as well as reviewing patient's
blood work and chest x-ray)
Data Reviewed
Review of Other/Old Records Reveals: Testing (05/09/25 cardiac echo showed EF of 55 to 60%)
Source: patient
Patient Management
Discussion with other providers: Hospitalist and Other (Cardiology service came down to evaluate patient at the bedside on consult)
ED Attending Note
-
Portions of this chart may have been created with voice recognition software.� Occasional wrong word or��sound alike� substitutions may have occurred due to the inherent limitations of voice recognition software.
Discharge Plan
Departure
Patient Disposition: Admit
Date of Disposition: 06/17/25
Time of Disposition: 15:46
Admit to: Telemetry
Presentation/result/management discussed w/ accepting MD/DO: Hospitalist
Patient with high blood pressure during this ER visit?: Yes
Condition: Good
Covid-19: Not Applicable
Discharge Problem:
Acute hypoxic respiratory failure, Acute CHF
Prescriptions:
No Action
PRECIOUS-e 200 MG tablet
200 mg PO DAILY
Hair, Skin and Nails Advanced 1 EACH tablet
2 tab PO DAILY
cranberry conc-ascorbic acid 1 EACH capsule
2 tab PO DAILY
multivitamin with folic acid [Tab-A-Freda] 1 TABLET tablet
2 tab PO DAILY
omega 2-fzc-qlo-fish oil [Fish Oil] 1 EACH capsule
2 tab PO DAILY Qty: 0 0RF
Rx Instructions:
Resume in 1 week.
cholecalciferol (vitamin D3) 25 mcg (1,000 unit) Tablet
25 mcg PO DAILY
pantoprazole 40 mg Tablet,Delayed Release (Dr/Ec)
40 mg PO DAILY 30 Days Qty: 30 0RF
Eliquis 5 mg tablet
5 mg PO BID 45 Days Qty: 90 0RF
acetaminophen [Tylenol] 325 mg Tablet
650 mg PO DAILY
coQ10 (ubiquinol) 200 mg Capsule
200 mg PO DAILY
spironolactone 25 MG tablet
12.5 mg PO QPM
Rx Instructions:
Hold if systolic blood pressure <130 while on Oxycodone.
Referrals:
Wendy Howell CRNP [Family Provider, General]
Interventions
Interventions:
*Risk Screen - Suicide Last Done: 06/17/25 12:28
*Neglect/Abuse Screening Last Done: 06/17/25 12:28
Discharge Date and Time
Print Language: NAURUAN
--- NOTE | 2025-06-17 15:03 | W.PN.CARDCBS ---
Addendum entered and electronically signed by Junie Bowers MD 06/17/25 17:35:
I saw and examined the patient.
The Cord Splicer's note was reviewed and I agree with the note.
Comment:
She was significantly ill in the office today with hypoxemia, 40 pound weight gain and extreme volume overload with lower extremity edema and weeping legs. She did not call and symptoms started about 6 weeks ago. Echocardiogram noted with pulmonary
hypertension in the setting of prior PE. She has history of heart failure with improved ejection fraction in the distant past. Most recent ejection fraction is normal. She has right heart dysfunction and pulmonary hypertension given prior
significant PE which was likely late presentation.
Plan at this time:
- IV diuretic and follow blood pressure carefully (low blood pressures historically)
- Telemetry and following vital signs closely
- Replete electrolytes as needed
- Heart failure education and counseling
- Oxygen and management of hypoxemia
- Guideline directed medical therapy for heart failure as blood pressure tolerates
-Continue carvedilol for prior heart failure with reduced ejection fraction which has improved.
-Reassess echocardiogram
-We discussed the importance of conventional medical treatment. She many times prefers alternative treatments.
- Eventually as an outpatient if PA pressures remain elevated we will consider the institution of [facility] for pulmonary hypertension in the setting of pulmonary embolism.
-Continue anticoagulation for recent pulmonary embolism.
-
Previously she was diagnosed with severe bilateral pulmonary emboli with pulmonary hypertension (01/2025). She was treated with anticoagulation and hematology along with pulmonary and cardiology were consulted. She continues on anticoagulation with
follow-up with consultants. She underwent thrombolysis in addition.
Original Note:
Today's Communication / Plan
-
Aggressive IV diuresis
Replete potassium
Add on lab for magnesium
Continue Eliquis for PE/DVT
Continue Coreg and Aldactone
Eventual echocardiogram once patient has been diuresed
Impression / Plan
-
PCP: Wendy Howell
High Rigger: Junie Bowers
Please refer to office visit note from 06/17/2025 as official H&P
Impression:
Presents 06/17/2025 with weight gain, lower extremity edema, shortness of breath
Hypoxemia, pulse ox 81% on room air
Acute heart failure with preserved ejection fraction, proBNP 8690
Bilateral pulmonary emboli with directed thrombolysis
Severe pulmonary hypertension
bilateral popliteal thrombi, non-occlusive (01/2025)
Chronic nocturnal oxygen therapy at home with 2 L at night
Cardiomyopathy with recovered ejection fraction, (EF 15% in 2003)
Chronic left bundle branch block
Hyperlipidemia
Intermittent asthma
Right hip replacement 2020
Echocardiogram 05/09/2025: EF 55 to 60%. Mild LVH. D-shaped interventricular septum in systole and diastole consistent with RV pressure and volume overload. Mild to moderate dilated hypocontractile right ventricle.� Moderate to severe TR with PA
pressure 84 mmHg.
Echo 02/10/2025: EF 57%. Mild to moderate enlarged RV with mildly reduced RV systolic function and D shaped interventricular septum consistent with RV pressure and volume overload. Trace MR. Moderate TR with PAP 76 mmHg
Echo 09/05/2023 Normal left ventricular size. LV ejection fraction is 49% by Ponce's biplane method of discs. Visually appears 50-55%. Mild LVH. Normal RV. Mild MR.
Plan:
- Presented to cardiology office 06/17/2025 for follow-up for pulmonary hypertension after having bilateral pulmonary emboli January 2025. She was found to have evidence of acute decompensated heart failure with concern for significant volume overload,
hypoxemia (spO2 81% on RA) with significant lower extremity edema and weeping legs.
- Acute heart failure with preserved ejection fraction, proBNP 8690
weight up 40 pounds in office today (203lbs) compared to office visit in March 2025 where patient's weight was 163 pounds
Chest x-ray with small left-sided pleural effusion and subsegmental atelectasis
Give IV Lasix 40 mg now, monitor and assess response but suspect she will need 40 mg IV twice daily
Potassium 3.8, will replete given plan for ongoing IV diuresis
Check magnesium level
Check echocardiogram
Continue carvedilol and Aldactone. Need to watch for hypotension as previous outpatient monitor had to be escalated secondary to hypotension
GDMT as blood pressure allows with diuresis
-EKG today showed sinus rhythm with PACs and quadrigeminal pattern with AV conduction block associated with PAC, IVCD/LBBB.
Troponin negative.
-Recent admission January 2025 for pulmonary embolism, pulmonary hypertension and DVT.
Check echocardiogram
Continue with Eliquis 5 mg twice a day.
Eventually as an outpatient if PA pressures remain elevated we will consider the institution of [facility] for pulmonary hypertension in the setting of pulmonary embolism.
Plan discussed with the emergency department physician Nallely Caldera, nursing
Progress Note - High Rigger
Subjective
Date of Service: June 17, 2025
Patient seen and evaluated. Patient reports over the last 6 to 8 weeks she has noted significant increase in weight, lower extremity edema and worsening shortness of breath. She thought it would get better on her own so she never notified medical
providers until she was seen in cardiology office today. She has been utilizing oxygen at night but denies orthopnea or PND. Patient denies chest pain. She reports she has been compliant with taking her Eliquis
Objective
Labs:
06/17/25 12:46
06/17/25 12:46
Labs
Hgb 13.0 g/dL (12.0-16.0) 06/17/25 12:46
Hct 39.8 % (37.0-47.0) 06/17/25 12:46
Plt Count 182 10^3/uL (130-400) 06/17/25 12:46
PT 20.6 Sec (11.4-14.6) H 06/17/25 12:46
INR 1.74 06/17/25 12:46
Sodium 141 mmol/L (135-145) 06/17/25 12:46
Potassium 3.8 mmol/L (3.5-5.1) 06/17/25 12:46
BUN 21 mg/dl (7-17) H 06/17/25 12:46
Creatinine 1.0 mg/dL (0.6-1.0) 06/17/25 12:46
Glucose 93 mg/dl (70-99) 06/17/25 12:46
Troponins
06/17/25
12:46
Troponin I < 0.012
Vital Signs and I&O:
Vital Signs
Temp Pulse Resp BP Pulse Ox
98.0 F 85 16 118/82 93
06/17/25 12:28 06/17/25 12:28 06/17/25 12:28 06/17/25 12:28 06/17/25 15:01
Vital Signs
Temp Pulse Resp BP Pulse Ox
98.0 F 85 16 118/82 93
06/17/25 12:28 06/17/25 12:28 06/17/25 12:28 06/17/25 12:28 06/17/25 15:01
Physical Exam
Physical Exam
GEN: No distress, awake, Ox3, sitting in bed wearing oxygen
HEENT: supple, anicteric, mmm
LUNGS: Mildly decreased at left base otherwise CTA, no wheezes/rales
CV: Reg rate and rhythm with occasional ectopy, S1/S2, 1/6 syst LSB, no murmur
ABD: soft, BS+, NT/ND
EXT: +3-4 bilateral lower extremity pitting edema, skin changes on bilateral shins red but no evidence of acute infection
NEURO: Gross non-focal
SKIN: No rash, warm, dry, pink
--- NOTE | 2025-06-17 15:52 | HPS.HSE ---
Addendum entered and electronically signed by Margaux Stewart MD 06/17/25 18:00:
I personally performed a history and physical exam of the patient and discussed management with the resident. I reviewed the resident's note and agree with the documented findings and plan of care HPI/CC.
GENERAL: well developed, well nourished, female in no apparent distress
HEENT: NC/AT--lips tinged blue--5L O2 NC, +JVD
HEART: regular rate and rhythm, +S1, +S2
LUNGS : crackles bilaterally
ABDOM: soft, nontender, nondistended, + bowel sounds
EXT: no cyanosis, clubbing--4+ pitting edema bilaterally
NEUROLOGIC: grossly intact
Acute exacerbation of heart failure-- had reduced EF but has now improved to be HFpEF--pt was only on aldactone as an outpt but has gained 40lbs since her January discharge--ADMIT--cont IV diuresis 40 mg lasix BID--daily weights, I/Os--Most recent echo
obtained on 05/19/2025-EF of 55 to 60%--D-shaped interventricular septum in systole and diastole consistent with right ventricular pressure and volume overload, Hypocontractile right ventricle
Moderate to severe tricuspid regurgitation-Pulmonary artery pressure of 84 mmHg (76 mmHg in the past.)--Continue CAROLE/ARB, beta-tequila--Continue home doses of carvedilol, lisinopril and spironolactone--fluid restrict--2gm sodium diet--consult cards
Acute on chronic hypoxic respiratory failure--uses 2L O2 nightly--denies sleep apnea symptoms--up to 5L now with sats 90%--check ABG--consider pulm consult--pt does have pulm HTN from likely chronic thromboembolic disease and chronic heart failure
symptoms-- check ABG--May eventually benefit from right heart cath and pulmonary evaluation--Hold off for now and reevaluate after diuresis.
Bilateral recurrent PEs--Continue Eliquis.
CRISTIAN-stage I--Baseline serum creatinine of 0.7, eGFR greater than 60--Likely secondary to fluid overload, prerenal--follow creat with diuresis
Essential hypertension--Continue lisinopril, carvedilol, spironolactone
Mild intermittent asthma--Last inhaler use 2 days ago, on albuterol inhaler--Albuterol inhaler as needed.
Chronic macrocytosis--Likely from alcohol use--History of elevated folate and vitamin B12.
History of alcohol use disorder in remission.
Hyperlipidemia and chronic left bundle branch block.
DVT prophylaxis--On Eliquis
CODE STATUS--Full code.
Original Note:
Family Physician
-
Family Physician: Wendy Howell
Chief Complaint
-
Shortness of breath on exertion and 40 pounds weight gain.
History of Present Illness
80-year-old female with PMHx significant for essential hypertension, recurrent chronic bilateral pulmonary embolism, with chronic right heart strain and pulmonary hypertension (most recent-02/08/2025, s/p thrombolysis,), essential hypertension,
chronic left bundle branch block, hyperlipidemia, mild intermittent asthma presents to the hospital for evaluation of shortness of breath on exertion and 40 pounds weight gain. Patient states that following her discharge in late January 2025 she
started to gain weight slowly that she admits to have never tracked, and also states that she slowly started developing shortness of breath. Her shortness of breath progressively worsened to a point that she was not able to do any physical activity
for the last 1 month. She states that she have never noticed orthopnea and PND as she is oxygen dependent in the night, 2 L home O2, and she has noticed herself to find it difficult to fall asleep and stay asleep for the last 2 weeks from
uncomfortable feeling from all the weight gain. She reports to have stayed consistent with her medication regimen, Lasix na�ve, and her last dose of Eliquis was in the p.m. yesterday. She never missed the Lasix dose.
He also reports to have red erythematous legs from oozing for the last 2 weeks.
In April 2025, she called her cardiology office who ordered an echocardiogram, about a week ago she tried to follow-up with her primary care physician who advised to keep up with her cardiology appointment, and after being evaluated by marklogic developer
in her office in the a.m. today, she was sent to the ER.
She denies having chest pain, palpitations, syncope or near syncopal episodes, fever, chills, nausea, emesis.
Her baseline is multiple bowel movements a day from IBS.
Medical History
Past Medical History
Past Medical History: Reports Other (Mild intermittent asthma, acute on chronic bilateral pulmonary embolism with residual right heart strain, pulmonary hypertension, chronic left bundle branch block, hyperlipidemia, hypertension, moderate to severe
tricuspid stenosis.)
Past Surgical History: Reports Other (Ankle surgery and hip replacement.)
Social History
Tobacco: Non-smoker
Alcohol: Former (1 glass of wine a day, quit drinking 2 months ago.)
Drug: None
Personal:
Living: With Family
Employment: Retired
Family History
Family History: Not pertinent
Allergies / Home Medications
Allergies reflects when Allergies were last updated in [facility].
Home Medications with original date entered in [facility]
Allergy/Medication List:
Allergies
Allergy/AdvReac Type Severity Reaction Status Date / Time
meperidine Allergy shock Verified 06/17/25 12:31
Home Medications
cranberry concentrate-ascorbic acid 12,600 mg-20 mg capsule 2 tab PO DAILY Supplement 04/10/21
multivitamin with folic acid 400 mcg tablet (Tab-A-Freda) 2 tab PO DAILY Supplement 04/10/21
multivitamin,min-ferrous fumarate 3.3 mg-folic 25 mcg-herb tablet (Hair, Skin and Nails Advanced) 2 tab PO DAILY Supplement 04/10/21
s-adenosylmethionine 200 mg tablet (PRECIOUS-e) 200 mg PO DAILY Supplement 04/10/21
omega 5-yka-smu-fish oil 300 mg-1,000 mg capsule (Fish Oil) 2 tab PO DAILY ##0 04/16/21
cholecalciferol (vitamin D3) 25 mcg (1,000 unit) tablet 25 mcg PO DAILY Supplement 02/11/25
apixaban 5 mg tablet (Eliquis) 5 mg PO BID Blood clot prevention/tx 45 days #90 tabs 02/13/25
pantoprazole 40 mg tablet,delayed release 40 mg PO DAILY Gastrointestinal issue 30 days #30 tabs 02/13/25
acetaminophen 325 mg tablet (Tylenol) 650 mg PO DAILY 06/17/25
coQ10 (ubiquinol) 200 mg capsule 200 mg PO DAILY 06/17/25
spironolactone 25 mg tablet 12.5 mg PO QPM 06/17/25
Review of Systems
-
History Source: Patient
Constitutional: Reports Fatigue
EENT: Reports No Symptoms
Respiratory: Reports Trouble Breathing
Cardiac: Reports No Symptoms
Abdomen/GI: Reports Diarrhea (IBS-D)
: Reports No Symptoms
Musculoskeletal: Reports Edema (All over the body)
Skin: Reports Other (Redness on the legs.)
Neurological: Reports No Symptoms
Endocrine: Reports No Symptoms
Hematologic/Lymphatic: Reports No Symptoms
Psych: Reports No Symptoms
Physical Exam
Vital Signs
Vital Signs
Temp Pulse Resp BP Pulse Ox
98.0 F 85 16 118/82 93
06/17/25 12:28 06/17/25 12:28 06/17/25 12:28 06/17/25 12:28 06/17/25 15:01
Physical Exam
General: Appears in Distress (Mild respiratory distress.) and Other (Perioral cyanosis, oxygen increased to 5 L low flow nasal cannula)
HEENT: Moist mucous membranes and [place] Conjunctivae
Respiratory: Crackles (Bilateral crackles across all lung lobes.); No Wheezes, Rales or Rhonchi
Cardiac: S1/S2 (Distant heart sounds.), Regular Rhythm, Murmur (Faint systolic 2/6.), Peripheral Edema (3+ pitting, anasarca.) and JVD; No Rub, Carotid Bruits or HJR
GI: Soft, Non Tender, Normal Bowel Sounds and Distended
Genito-urinary: Deferred by me
Musculoskeletal: No Clubbing, No Cyanosis and Other (Anasarca, 3+ pitting edema)
Skin: Other (Weeping and erythematous skin on shins.)
Neuro: AO x 3, No Motor Deficits and DTR's Intact & Symmetrical
Psych: Calm
Laboratory Results
-
06/17/25 12:46
06/17/25 12:46
Laboratory Results
PT 20.6 Sec (11.4-14.6) H 06/17/25 12:46
INR 1.74 06/17/25 12:46
Total Bilirubin 1.4 mg/dl (0.2-1.3) H 06/17/25 12:46
AST 23 U/L (14-36) 06/17/25 12:46
ALT 12 U/L (0-35) 06/17/25 12:46
Alkaline Phosphatase 74 U/L (38-126) 06/17/25 12:46
Troponin I < 0.012 ng/ml 06/17/25 12:46
Data Reviewed
-
Diagnostic Radiology: Image Personally Visualized and interpreted, Report Reviewed by me, Discussed with Physician and Discussed with Patient
Medical Tests (Nuc Med, Echo, EKG etc): Report Reviewed by me, Discussed with Physician and Discussed with Patient
Lab Data: Labs Reviewed by me, Discussed with Physician and Discussed with Patient
Impression/Plan
-
IMPRESSION: 80-year-old female with PMHx significant for essential hypertension, recurrent bilateral pulmonary embolism with chronic right heart strain and pulmonary hypertension (s/p thrombolysis on 02/08/2025), chronic left bundle branch block,
hyperlipidemia, mild intermittent asthma is admitted to the hospital for acute exacerbation of heart failure.
PLAN:
#Acute exacerbation of heart failure-
HFrEF and heart failure with improved ejection fraction in the past.
40 pounds weight gain, dyspnea on exertion.
Most recent echo obtained on 05/19/2025-EF of 55 to 60%
D-shaped interventricular septum in systole and diastole consistent with right ventricular pressure and volume overload
Hypocontractile right ventricle
Moderate to severe tricuspid regurgitation,
Pulmonary artery pressure of 84 mmHg (76 mmHg in the past.)
S/p IV Lasix 40 mg, potassium supplementation in the ER.
Start the patient on IV Lasix 40 mg twice daily,
Continue CAROLE/ARB, beta-tequila and MRA.
Continue home doses of carvedilol, lisinopril and spironolactone..
Sodium diet and fluid restriction.
Monitor I's and O's, monitor daily weights.
Cardiology consulted, on board, appreciate input.
Obtain magnesium and phosphorus, replete as needed.
Monitor electrolytes on lisinopril and spironolactone
# Acute hypoxic respiratory failure-
Currently on 5 L nasal cannula flow.
Secondary to fluid overload, and pulmonary hypertension
Baseline on 2 L nasal cannula flow at home in the 90s.
Obtain ABGs, admit to IMU.
Monitor for perioral cyanosis, happy hypoxic.
May eventually benefit from right heart cath and pulmonary evaluation.
Hold off for now and reevaluate after diuresis.
# Bilateral recurrent PEs-
Continue Eliquis.
# CRISTIAN-stage I.
Baseline serum creatinine of 0.7, eGFR greater than 60
Likely secondary to fluid overload, prerenal
Monitor serum creatinine with diuresis.
# Essential hypertension-
Continue lisinopril, carvedilol, spironolactone
# Mild intermittent asthma-
Last inhaler use 2 days ago, on albuterol inhaler.
Albuterol inhaler as needed.
# Chronic macrocytosis-
Likely from alcohol use.
History of elevated folate and vitamin B12.
# History of alcohol use disorder in remission.
# Hyperlipidemia and chronic left bundle branch block.
# DVT prophylaxis-
On Eliquis
# CODE STATUS-
Full code.
[2025-06-17] MEDS: LASIX 40 MG IV ×2 (16:58→21:28)
[2025-06-17] MEDS: ELIQUIS 5 MG PO (17:06)
[2025-06-17] MEDS: KCL 40 MEQ PO (17:07)
[2025-06-17 17:11] LABS: Magnesium 1.7 mg/dl (1.6-2.3)
[2025-06-17 18:20] LABS: B.E. -1.4 mmol/L; HCO3 22.8 mmol/L (21-28); O2 Saturation % 93.8 % (94-98); PCO2 36 mmHg (32-35); PO2 65 mmHg (83-108)
[2025-06-17] MEDS: ALDACTONE PO (21:30)
--- NOTE | 2025-06-17 22:02 | PTCARENOTE ---
Resumed care of Pt from ED RN. Pt AAOx3 able to make needs known. Pt lungs b/l scattered crackles, shallow breaths diminished at bottoms. Pt spo2 95% on 5l dyspneic on excursion RR 24. Pt Lasix given spironolactone held for hour, per SYSTEMS ADMINISTRATOR. Call teran
within reach bed in lowest position.
[2025-06-17] MEDS: ALDACTONE 12.5 MG PO (22:47)
[2025-06-18] VITALS (16 sets, daily range): BP systolic 90–113; BP diastolic 59–76; PULSE 68; O2SAT 91; BMI 34.3
--- NOTE | 2025-06-18 02:38 | PTCARENOTE ---
Pt having good urine output over night. Pt making RN aware she is lactose intolerant, requesting it be added to her diet.
[2025-06-18 05:25] LABS: Hematocrit 38.7 % (37.0-47.0); Hemoglobin 12.8 g/dL (12.0-16.0); Mean Corp Hgb Conc. 33.1 g/dL (33.0-37.0); Mean Corpuscular Volume 100.8 fL (81.0-99.0); Nucleated Red Blood Cells % 0 %; Platelet Count 189 10^3/uL (130-400); Red Cell Dist. Width 15.9 % (11.5-14.5)
[2025-06-18 05:46] LABS: ALT (SGPT) 12 U/L (0-35); AST (SGOT) 22 U/L (14-36); Albumin 3.0 g/dl (3.5-5.0); Alkaline Phosphatase 72 U/L (38-126); Calcium 9.1 mg/dl (8.4-10.2); Carbon Dioxide 28 mmol/L (22-30); Chloride 109 mmol/L (98-107); Estimated Creatinine Clearance 50 ml/min; Glucose 66 mg/dl (70-99); Magnesium 1.4 mg/dl (1.6-2.3); Potassium 3.9 mmol/L (3.5-5.1); Sodium 141 mmol/L (135-145); Total Protein 6.1 g/dl (6.3-8.2); eGFR > 60.00
[2025-06-18 05:57] LABS: Blood Urea Nitrogen 19 mg/dl (7-17)
--- NOTE | 2025-06-18 06:42 | PTCARENOTE ---
Morning ekg showing changes, ryan KRUGER made aware. Pt has no complaints, asymptomatic at this time
.
[2025-06-18] MEDS: LASIX 40 MG IV ×2 (08:13→16:42)
[2025-06-18] MEDS: PROTONIX 40 MG PO (08:13)
[2025-06-18] MEDS: ELIQUIS 5 MG PO ×2 (08:13→20:09)
[2025-06-18] MEDS: TYLENOL 650 MG PO (08:13)
--- NOTE | 2025-06-18 08:55 | PTCARENOTE ---
pt aaox3. states no pain or sob when laying in bed. 5lnc. base crackles heard. morning ekg read as afib. hosp and cardiology notified. pt inc of urine pure wick ini place. bilat lower legs red shiny +2 edema.
--- NOTE | 2025-06-18 11:00 | W.PN.HOSP.TC ---
Today's Communication/Plan
-
see plan
Assessment / Plan
Assessment / Plan
Gen: NAD, AAOx3.
Eyes: EOMI, PERRLA, no scleral icterus.
Neck: supple.
CV: RRR, +S1/S2, no m/r/g.
Resp: rales and dec BS in the bases
Abd: +BS, soft, NT, ND
Skin: No rashes. 4+ B/L edema.
Neuro: CN 2-12 intact, non-focal.
Psych: Normal mood and affect.
Echo 05/09/25:
1. Ejection fraction is 55-60% by Ponce's method of discs.
2. Mild concentric left ventricular hypertrophy.
3. The left ventricle is small in size. 'D' shaped interventricular septum in systole and diastole consistent with right ventricular pressure and volume overload.
4. Mild-Moderately dilated, hypocontractile right ventricle. Prominent moderator band.
5. Trileaflet aortic valve which opens normally. Mild focal calcification.
6. Moderate to severe tricuspid regurgitation.
7. Tricuspid valve opens normally. moderate to severe tricuspid regurgitation. Estimated pulmonary artery pressure of 84 mmHg assuming a right atrial pressure of 3 mmHg.
8. Compared to a prior transthoracic echocardiogram study from 02/10/2025 no significant changes are seen.
CXR: L-sided pleural effusion. Linear foci are likely subsegmental atelectasis.
Acute on chronic hypoxemic respiratory failure due to acute on chronic HFpEF:
-cards following
-baseline 2L NC O2 HS, currently on 5L NC O2
-proBNP 8690
-cont IV Lasix, daily wts, I/Os
-cont aldactone
Other problems:
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
Essential HTN: cont Aldactone
Mild intermittent asthma
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
History of alcohol abuse disorder in remission
HLD
LBBB
Anticipated Discharge: > 48 hours
Subjective/Interval History
-
Date of Service: June 18, 2025
No new complaints.
Objective Data
-
Labs:
Laboratory Results
06/18/25
05:06
WBC 6.1
Hgb 12.8
Hct 38.7
Plt Count 189
Sodium 141
Potassium 3.9
Chloride 109 H
Carbon Dioxide 28
BUN 19 H
Creatinine 0.9
Glucose 66 L
Calcium 9.1
Total Bilirubin 2.0 H
AST 22
ALT 12
Alkaline Phosphatase 72
Vital Signs:
Vital Signs
Temp Pulse Resp BP Pulse Ox
97.6 F 81 18 106/72 94
06/18/25 07:51 06/18/25 06:02 06/18/25 06:02 06/18/25 08:13 06/18/25 08:00
I&O
06/17/25 06/18/25 06/19/25
06:59 06:59 06:59
Intake Total 120 / 120
Output Total 3600 / 3600 250 / 250
Balance -3480 / -3480 -250 / -250
--- NOTE | 2025-06-18 13:18 | CM ---
Reviewed the chart notes and spoke with the patient at the bedside. The patient resides in a three story home. Patient enters through walk-out basement and there are 17 steps to first level and another 17 to the next level, there is a landing
between. The patient has a rolling walker, home O2 via [employer], wheelchair, shower chair, and shower rails. Patient in process of having stair glides installed. The patient has had [facility] VN and been to a SNF (name unknown). The patient confirmed her
pharmacy of choice is [facility]. CM continues to be available to patient/family and is monitoring medical plan for needs at discharge.
Plan: Discharge plans will depend on the patient's progress.
--- NOTE | 2025-06-18 14:37 | W.PN.CARDCBS ---
Today's Communication / Plan
-
Continue IV Lasix and low-dose Aldactone
Add Farxiga
Impression / Plan
-
PCP: Wendy Howell
[employer] Sewing Machine Operator: Junie Bowers
Please refer to office visit note from 06/17/2025 as official H&P
Impression:
Presents 06/17/2025 with weight gain, lower extremity edema, shortness of breath
Hypoxemia, pulse ox 81% on room air
Acute heart failure with preserved ejection fraction, proBNP 8690
Bilateral pulmonary emboli with directed thrombolysis
Severe pulmonary hypertension
bilateral popliteal thrombi, non-occlusive (01/2025)
Chronic nocturnal oxygen therapy at home with 2 L at night
Cardiomyopathy with recovered ejection fraction, (EF 15% in 2003)
Chronic left bundle branch block
Hyperlipidemia
Intermittent asthma
Right hip replacement 2020
Echocardiogram 05/09/2025: EF 55 to 60%. Mild LVH. D-shaped interventricular septum in systole and diastole consistent with RV pressure and volume overload. Mild to moderate dilated hypocontractile right ventricle.� Moderate to severe TR with PA
pressure 84 mmHg.
Echo 02/10/2025: EF 57%. Mild to moderate enlarged RV with mildly reduced RV systolic function and D shaped interventricular septum consistent with RV pressure and volume overload. Trace MR. Moderate TR with PAP 76 mmHg
Echo 09/05/2023 Normal left ventricular size. LV ejection fraction is 49% by Ponce's biplane method of discs. Visually appears 50-55%. Mild LVH. Normal RV. Mild MR.
Plan:
- Presented to cardiology office 06/17/2025 for follow-up for pulmonary hypertension after having bilateral pulmonary emboli January 2025. She was found to have evidence of acute decompensated heart failure with concern for significant volume overload,
hypoxemia (spO2 81% on RA) with significant lower extremity edema and weeping legs.
- Acute heart failure with preserved ejection fraction, proBNP 8690
weight up 40 pounds in office today (203lbs) compared to office visit in March 2025 where patient's weight was 163 pounds
Chest x-ray with small left-sided pleural effusion and subsegmental atelectasis
IV Lasix 40 mg BID
Cont low dose aldactone
Add SGLT2
Check echocardiogram
-Recent admission January 2025 for pulmonary embolism, pulmonary hypertension and DVT.
Check echocardiogram
Continue with Eliquis 5 mg twice a day.
Eventually as an outpatient if PA pressures remain elevated we will consider the institution of [place] for pulmonary hypertension in the setting of pulmonary embolism.
Progress Note - [employer] Sewing Machine Operator
Subjective
Date of Service: June 18, 2025
No acute overnight events. Patient was resting comfortably in bed this morning at time evaluation. Reports that her lower extremities are still heavy and edematous.
Objective
Labs:
06/18/25 05:06
06/18/25 05:06
Labs
Hgb 12.8 g/dL (12.0-16.0) 06/18/25 05:06
Hct 38.7 % (37.0-47.0) 06/18/25 05:06
Plt Count 189 10^3/uL (130-400) 06/18/25 05:06
PT 20.6 Sec (11.4-14.6) H 06/17/25 12:46
INR 1.74 06/17/25 12:46
Sodium 141 mmol/L (135-145) 06/18/25 05:06
Potassium 3.9 mmol/L (3.5-5.1) 06/18/25 05:06
BUN 19 mg/dl (7-17) H 06/18/25 05:06
Creatinine 0.9 mg/dL (0.6-1.0) 06/18/25 05:06
Glucose 66 mg/dl (70-99) L 06/18/25 05:06
Troponins
06/17/25
12:46
Troponin I < 0.012
Vital Signs and I&O:
Vital Signs
Temp Pulse Resp BP Pulse Ox
98.5 F 76 16 107/73 94
06/18/25 11:29 06/18/25 12:00 06/18/25 12:00 06/18/25 12:00 06/18/25 12:00
Vital Signs
Temp Pulse Resp BP Pulse Ox
98.5 F 76 16 107/73 94
06/18/25 11:29 06/18/25 12:00 06/18/25 12:00 06/18/25 12:00 06/18/25 12:00
Intake & Output
06/16/25 06/17/25 06/18/25 06/19/25
06:59 06:59 06:59 06:59
Intake Total 120 / 120
Output Total 3600 / 3600 1450 / 1450
Balance -3480 / -3480 -1450 / -1450
Physical Exam
Physical Exam
Gen: NAD, AAOx3
HEENT: NC/AT, sclera anicteric
Neck: No JVD
CV: RRR, NL s1/s2
Lungs: Scattered rhonchi on 5 L nasal cannula
Abd: S/ND
Ext: 3+ pitting LE edema, overlying skin is erythematous
Skin: Warm, dry
Neuro: Non-focal
[2025-06-18] MEDS: ALDACTONE 12.5 MG PO (17:23)
--- NOTE | 2025-06-18 20:00 | PTCARENOTE ---
Received pt. at 1900. Pt. awake, alert, and oriented. Denies pain/discomfort. Afebrile. Heart rhythm sinus currently. Blood pressure normotensive. Currently on nasal cannula. Lungs sound diminished. PO diet is ordered. Abdomen round. Incontinent of
urine. Purewick catheter in place. Skin as documented. Discussed plan of care with patient. Vital signs stable at this time.
[2025-06-19] VITALS (11 sets, daily range): BP systolic 90–120; BP diastolic 55–96; BMI 34.0
[2025-06-19 03:42] LABS: Hematocrit 35.9 % (37.0-47.0); Hemoglobin 12.3 g/dL (12.0-16.0); Mean Corp Hgb Conc. 34.3 g/dL (33.0-37.0); Mean Corpuscular Volume 101.4 fL (81.0-99.0); Nucleated Red Blood Cells % 0 %; Platelet Count 183 10^3/uL (130-400); Red Cell Dist. Width 15.4 % (11.5-14.5)
[2025-06-19] MEDS: FARXIGA 10 MG PO (08:40)
[2025-06-19] MEDS: LASIX 40 MG IV ×2 (08:40→17:20)
[2025-06-19] MEDS: TYLENOL 650 MG PO (08:40)
[2025-06-19] MEDS: ELIQUIS 5 MG PO ×2 (08:40→20:31)
[2025-06-19] MEDS: PROTONIX 40 MG PO (08:45)
[2025-06-19 10:04] LABS: ALT (SGPT) 13 U/L (0-35); AST (SGOT) 25 U/L (14-36); Albumin 3.3 g/dl (3.5-5.0); Alkaline Phosphatase 72 U/L (38-126); Blood Urea Nitrogen 19 mg/dl (7-17); Calcium 8.8 mg/dl (8.4-10.2); Carbon Dioxide 30 mmol/L (22-30); Chloride 105 mmol/L (98-107); Estimated Creatinine Clearance 48 ml/min; Glucose 148 mg/dl (70-99); Potassium 3.4 mmol/L (3.5-5.1); Sodium 141 mmol/L (135-145); Total Protein 6.6 g/dl (6.3-8.2); eGFR > 60.00
--- NOTE | 2025-06-19 11:14 | W.PN.HOSP.TC ---
Today's Communication/Plan
-
see plan
Assessment / Plan
Assessment / Plan
Gen: NAD, AAOx3.
Eyes: EOMI, PERRLA, no scleral icterus.
Neck: supple.
CV: remains RRR, +S1/S2, no m/r/g.
Resp: dec BS in the bases
Abd: +BS, soft, NT, ND
Skin: No rashes. 3-4+ B/L edema.
Neuro: CN 2-12 intact, non-focal.
Psych: Normal mood and affect.
Echo 05/09/25:
1. Ejection fraction is 55-60% by Ponce's method of discs.
2. Mild concentric left ventricular hypertrophy.
3. The left ventricle is small in size. 'D' shaped interventricular septum in systole and diastole consistent with right ventricular pressure and volume overload.
4. Mild-Moderately dilated, hypocontractile right ventricle. Prominent moderator band.
5. Trileaflet aortic valve which opens normally. Mild focal calcification.
6. Moderate to severe tricuspid regurgitation.
7. Tricuspid valve opens normally. moderate to severe tricuspid regurgitation. Estimated pulmonary artery pressure of 84 mmHg assuming a right atrial pressure of 3 mmHg.
8. Compared to a prior transthoracic echocardiogram study from 02/10/2025 no significant changes are seen.
CXR: L-sided pleural effusion. Linear foci are likely subsegmental atelectasis.
Acute on chronic hypoxemic respiratory failure due to acute on chronic HFpEF:
-cards following
-baseline 2L NC O2 HS, currently on 5L NC O2
-proBNP 8690
-cont IV Lasix, daily wts, I/Os
-cont aldactone
Other problems:
Hypokalemia: 40meq PO K
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
Essential HTN: cont Aldactone
Mild intermittent asthma, not in acute exac
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
History of alcohol abuse disorder in remission
HLD
LBBB
FULL/Eliquis
Anticipated Discharge: > 48 hours
Subjective/Interval History
-
Date of Service: June 19, 2025
No new complaints.
Objective Data
-
Labs:
Laboratory Results
06/19/25 06/19/25 06/19/25
03:24 06:31 09:27
WBC 6.7
Hgb 12.3
Hct 35.9 L
Plt Count 183
Sodium Cancelled Cancelled 141
Potassium Cancelled Cancelled 3.4 L
Chloride Cancelled Cancelled 105
Carbon Dioxide Cancelled Cancelled 30
BUN Cancelled Cancelled 19 H
Creatinine Cancelled Cancelled 0.9
Glucose Cancelled Cancelled 148 H
Calcium Cancelled Cancelled 8.8
Total Bilirubin Cancelled Cancelled 2.2 H
AST Cancelled Cancelled 25
ALT Cancelled Cancelled 13
Alkaline Phosphatase Cancelled Cancelled 72
Vital Signs:
Vital Signs
Temp Pulse Resp BP Pulse Ox
97.6 F 97 18 113/66 92
06/19/25 07:00 06/19/25 10:00 06/19/25 10:00 06/19/25 10:00 06/19/25 10:00
I&O
06/18/25 06/19/25 06/20/25
06:59 06:59 06:59
Intake Total 120 / 120 220 / 220
Output Total 3600 / 3600 4350 / 4350
Balance -3480 / -3480 -4130 / -4130
[2025-06-19] MEDS: KCL 40 MEQ PO (12:25)
--- NOTE | 2025-06-19 14:04 | W.PN.CARDCBS ---
Today's Communication / Plan
-
Continue IV Lasix/Aldactone
Impression / Plan
-
PCP: Wendy Howell
Frozen Meat Cutter: Junie Bowers
Please refer to office visit note from 06/17/2025 as official H&P
Impression:
Presents 06/17/2025 with weight gain, lower extremity edema, shortness of breath
Hypoxemia, pulse ox 81% on room air
Acute heart failure with preserved ejection fraction, proBNP 8690
Bilateral pulmonary emboli with directed thrombolysis
Severe pulmonary hypertension
bilateral popliteal thrombi, non-occlusive (01/2025)
Chronic nocturnal oxygen therapy at home with 2 L at night
Cardiomyopathy with recovered ejection fraction, (EF 15% in 2003)
Chronic left bundle branch block
Hyperlipidemia
Intermittent asthma
Right hip replacement 2020
Echocardiogram 05/09/2025: EF 55 to 60%. Mild LVH. D-shaped interventricular septum in systole and diastole consistent with RV pressure and volume overload. Mild to moderate dilated hypocontractile right ventricle.� Moderate to severe TR with PA
pressure 84 mmHg.
Echo 02/10/2025: EF 57%. Mild to moderate enlarged RV with mildly reduced RV systolic function and D shaped interventricular septum consistent with RV pressure and volume overload. Trace MR. Moderate TR with PAP 76 mmHg
Echo 09/05/2023 Normal left ventricular size. LV ejection fraction is 49% by Ponce's biplane method of discs. Visually appears 50-55%. Mild LVH. Normal RV. Mild MR.
Plan:
- Presented to cardiology office 06/17/2025 for follow-up for pulmonary hypertension after having bilateral pulmonary emboli January 2025. She was found to have evidence of acute decompensated heart failure with concern for significant volume overload,
hypoxemia (spO2 81% on RA) with significant lower extremity edema and weeping legs.
- Acute heart failure with preserved ejection fraction, proBNP 8690
weight up 40 pounds in office today (203lbs) compared to office visit in March 2025 where patient's weight was 163 pounds
Chest x-ray with small left-sided pleural effusion and subsegmental atelectasis
IV Lasix 40 mg BID
Cont low dose aldactone
Avoid SGLT2 with history of UTIs
Check echocardiogram
-Recent admission January 2025 for pulmonary embolism, pulmonary hypertension and DVT.
Check echocardiogram
Continue with Eliquis 5 mg twice a day.
Eventually as an outpatient if PA pressures remain elevated we will consider the institution of Adempas for pulmonary hypertension in the setting of pulmonary embolism.
Progress Note - Frozen Meat Cutter
Subjective
Date of Service: June 19, 2025
No acute overnight events. Patient remains in the IMU. Reports improvement in her peripheral edema. But still requiring supplemental O2 above her home requirement.
Objective
Labs:
06/19/25 03:24
06/19/25 09:27
Labs
Hgb 12.3 g/dL (12.0-16.0) 06/19/25 03:24
Hct 35.9 % (37.0-47.0) L 06/19/25 03:24
Plt Count 183 10^3/uL (130-400) 06/19/25 03:24
PT 20.6 Sec (11.4-14.6) H 06/17/25 12:46
INR 1.74 06/17/25 12:46
Sodium 141 mmol/L (135-145) 06/19/25 09:27
Potassium 3.4 mmol/L (3.5-5.1) L 06/19/25 09:27
BUN 19 mg/dl (7-17) H 06/19/25 09:27
Creatinine 0.9 mg/dL (0.6-1.0) 06/19/25 09:27
Glucose 148 mg/dl (70-99) H 06/19/25 09:27
Troponins
06/17/25
12:46
Troponin I < 0.012
Vital Signs and I&O:
Vital Signs
Temp Pulse Resp BP Pulse Ox
97.6 F 97 18 113/66 92
06/19/25 07:00 06/19/25 10:00 06/19/25 10:00 06/19/25 10:00 06/19/25 10:00
Vital Signs
Temp Pulse Resp BP Pulse Ox
97.6 F 97 18 113/ 92
06/19/25 07:00 06/19/25 10:00 06/19/25 10:00 06/19/25 10:00 06/19/25 10:00
Intake & Output
06/17/25 06/18/25 06/19/25 06/20/25
06:59 06:59 06:59 06:59
Intake Total 120 / 120 220 / 220
Output Total 3600 / 3600 4350 / 4350
Balance -3480 / -3480 -4130 / -4130
Physical Exam
Physical Exam
Gen: NAD, AAOx3
HEENT: NC/AT, sclera anicteric
Neck: No JVD
CV: RRR, NL s1/s2
Lungs: CTAB on 5 L nasal cannula
Abd: S/ND
Ext: 3+ pitting LE edema with overlying erythema
Skin: Warm, dry
Neuro: Non-focal
[2025-06-19] MEDS: ALDACTONE 12.5 MG PO (17:22)
--- NOTE | 2025-06-19 18:15 | PTCARENOTE ---
OOB most of the day - ambulated into bathroom. Failed to wean off 5LNC at 90-91%sao2. Alarmed on RAIR this am 76% with blue lips. She had removed to blow her nose. ST/ AVB/BBC/PVCs on tele. Legs +3 warm red. Pts own Moisturizer placed.
Requested purewick when went back into bed- IV Lasix given- pt falling asleep. 'Im gonna saturated the bed'. CHF education provided- encouraged videos. Call teran in reach.
[2025-06-20] VITALS (40 sets, daily range): BP systolic 82–106; BP diastolic 51–82; BMI 31.8
--- NOTE | 2025-06-20 01:27 | PTCARENOTE ---
Pt remains on 5L nc, spo2 91%. When Pt takes off 5L Pt spo2 drops into low 80's and take time to recuperate when put back on at 5L. Education given to Pt about keeping oxygen on. Pt continues substantial urine output from diuretics. Assessment care
and vitals as charted.
[2025-06-20 05:41] LABS: Hematocrit 36.5 % (37.0-47.0); Hemoglobin 12.5 g/dL (12.0-16.0); Mean Corp Hgb Conc. 34.2 g/dL (33.0-37.0); Mean Corpuscular Volume 101.7 fL (81.0-99.0); Platelet Count 188 10^3/uL (130-400); Red Cell Dist. Width 15.2 % (11.5-14.5)
[2025-06-20 06:05] LABS: Blood Urea Nitrogen 18 mg/dl (7-17); Calcium 8.8 mg/dl (8.4-10.2); Carbon Dioxide 34 mmol/L (22-30); Chloride 101 mmol/L (98-107); Estimated Creatinine Clearance 47 ml/min; Glucose 94 mg/dl (70-99); Magnesium 1.2 mg/dl (1.6-2.3); Potassium 3.4 mmol/L (3.5-5.1); Sodium 142 mmol/L (135-145); eGFR > 60.00
[2025-06-20] MEDS: ELIQUIS 5 MG PO ×2 (08:44→20:57)
[2025-06-20] MEDS: TYLENOL 650 MG PO (08:44)
[2025-06-20] MEDS: PROTONIX 40 MG PO (08:44)
[2025-06-20] MEDS: LASIX 40 MG IV (08:44)
--- NOTE | 2025-06-20 09:22 | W.PN.HOSP.TC ---
Addendum entered and electronically signed by Bairon Hernandez MD 06/20/25 15:28:
Stage 1 buttocks pressure injury, POA
CRISTIAN has been ruled out
Original Note:
Today's Communication/Plan
-
see plan
Assessment / Plan
Assessment / Plan
Gen: NAD, AAOx3.
Eyes: EOMI, PERRLA, no scleral icterus.
Neck: supple.
CV: tachy, irreg/irreg, +S1/S2, no m/r/g.
Resp: dec BS in the bases
Abd: +BS, soft, NT, ND
Skin: No rashes. 3+ B/L edema.
Neuro: CN 2-12 intact, non-focal.
Psych: Normal mood and affect.
Echo 05/09/25:
1. Ejection fraction is 55-60% by Ponce's method of discs.
2. Mild concentric left ventricular hypertrophy.
3. The left ventricle is small in size. 'D' shaped interventricular septum in systole and diastole consistent with right ventricular pressure and volume overload.
4. Mild-Moderately dilated, hypocontractile right ventricle. Prominent moderator band.
5. Trileaflet aortic valve which opens normally. Mild focal calcification.
6. Moderate to severe tricuspid regurgitation.
7. Tricuspid valve opens normally. moderate to severe tricuspid regurgitation. Estimated pulmonary artery pressure of 84 mmHg assuming a right atrial pressure of 3 mmHg.
8. Compared to a prior transthoracic echocardiogram study from 02/10/2025 no significant changes are seen.
CXR: L-sided pleural effusion. Linear foci are likely subsegmental atelectasis.
Acute on chronic hypoxemic respiratory failure due to acute on chronic HFpEF:
-cards following
-baseline 2L NC O2 HS, currently on 5L NC O2
-proBNP 8690
-cont IV Lasix, daily wts, I/Os
-cont aldactone
Afib with RVR:
-replete electrolytes as below
-start amio gtt
-support BP with midodrine 5mg TID, first dose now
-already on eliquis
Other problems:
Hypomagnesemia: 4g IV Mg
Hypokalemia: 40meq PO K
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
Essential HTN: cont Aldactone
Mild intermittent asthma, not in acute exac
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
History of alcohol abuse disorder in remission
HLD
LBBB
FULL/Eliquis
Total critical care time spent = 33 min
Anticipated Discharge: > 48 hours
Subjective/Interval History
-
Date of Service: June 20, 2025
No new complaints.
Objective Data
-
Labs:
Laboratory Results
06/20/25
04:47
WBC 6.4
Hgb 12.5
Hct 36.5 L
Plt Count 188
Sodium 142
Potassium 3.4 L
Chloride 101
Carbon Dioxide 34 H
BUN 18 H
Creatinine 0.9
Glucose 94
Calcium 8.8
Vital Signs:
Vital Signs
Temp Pulse Resp BP Pulse Ox
97.6 F 91 17 92/63 91
06/20/25 07:15 06/20/25 06:00 06/20/25 06:00 06/20/25 06:00 06/20/25 06:00
I&O
06/19/25 06/20/25 06/21/25
06:59 06:59 06:59
Intake Total 220 / 220 360 / 360
Output Total 4350 / 4350 3000 / 3000
Balance -4130 / -4130 -2640 / -2640
[2025-06-20] MEDS: CORDARONE 518 MG IV (09:47)
[2025-06-20] MEDS: MAGNESIUM SULFATE 100 IV (09:55)
[2025-06-20] MEDS: KCL 40 MEQ PO (10:01)
--- NOTE | 2025-06-20 10:20 | W.PN.CARDCBS ---
Today's Communication / Plan
-
Agree with IV amiodarone
Agree with midodrine for now - may need phenylephrine or norepinephrine if remains hypotensive
Supplement potassium and magnesium as planned
Transition to oral furosemide
Impression / Plan
-
PCP: Wendy Howell
Services Executive: Junie Bowers
Please refer to office visit note from 06/17/2025 as official H&P
Impression:
Presents 06/17/2025 with weight gain, lower extremity edema, shortness of breath
Hypoxemia, pulse ox 81% on room air
Acute heart failure with preserved ejection fraction, proBNP 8690
Bilateral pulmonary emboli with directed thrombolysis
Severe pulmonary hypertension
bilateral popliteal thrombi, non-occlusive (01/2025)
Chronic nocturnal oxygen therapy at home with 2 L at night
Cardiomyopathy with recovered ejection fraction, (EF 15% in 2003)
Chronic left bundle branch block
Hyperlipidemia
Intermittent asthma
Right hip replacement 2020
Echocardiogram 05/09/2025: EF 55 to 60%. Mild LVH. D-shaped interventricular septum in systole and diastole consistent with RV pressure and volume overload. Mild to moderate dilated hypocontractile right ventricle.� Moderate to severe TR with PA
pressure 84 mmHg.
Echo 02/10/2025: EF 57%. Mild to moderate enlarged RV with mildly reduced RV systolic function and D shaped interventricular septum consistent with RV pressure and volume overload. Trace MR. Moderate TR with PAP 76 mmHg
Echo 09/05/2023 Normal left ventricular size. LV ejection fraction is 49% by Ponce's biplane method of discs. Visually appears 50-55%. Mild LVH. Normal RV. Mild MR.
Plan:
From a volume standpoint, she is improved. However, she is still above dry weight. Will transition to oral furosemide in the AM. She was not on diuretic as an outpatient.
Now in atrial fibrillation with rapid ventricular response. Agree with IV amiodarone. Transition to oral amiodarone if converts to sinus rhythm.
If she remains in atrial fibrillation tomorrow we will consider cardioversion. I will make her n.p.o.
She is relatively hypokalemia, and magnesium is low, both of which can be contributing to new onset atrial fibrillation. Agree with supplementation.
Ultimately should be considered for Adempas for thromboembolic pulmonary hypertension.
Await echocardiogram.
Progress Note - Services Executive
Subjective
Date of Service: June 20, 2025:
Admitted from our office June 17 with acute on chronic HFpEF, 40 pound weight gain over 2 months. This morning at 9 AM she developed atrial fibrillation with RVR, which is a new diagnosis. She has been on a apixaban, has not missed any doses
but indication was pulmonary embolus.
PMH: Bilateral pulmonary embolism, directed thrombolysis January 2025, Severe pulmonary hypertension, pulmonary artery systolic pressure April, Nonocclusive DVT, Prior history of heart failure with improved EF, Left bundle branch block,
Hyperlipidemia, Asthma, Right total hip arthroplasty
Current meds: Apixaban 5 mg twice daily spironolactone 12.5 mg a day, acetaminophen 650 mg daily, pantoprazole 40 mg a day, furosemide 40 mg IV twice daily, IV magnesium, amiodarone IV, midodrine 5 mg 3 times daily just added
92/63, pulse 91, respiratory rate 17, afebrile, weight is 78.8 kg, intake and output -2.9 kg, if accurate weight has dropped 13.2 kg since admission, Which correlates with intake and output, which is -10.1 L, no distress, but rapid rate and relative
hypotension, head neck exam unremarkable, somewhat diminished breath sounds, tachycardic and irregular. Abdomen benign extremities with porfirio JVD still elevated
Atrial fibrillation with rapid ventricular response, borderline low voltage, IVCD, poor R wave progression
Hemoglobin is 12.5, potassium is 3.4 BUN and creatinine are 18 and 0.9, proBNP was 8690, troponin undetectable
Objective
Labs:
06/20/25 04:47
06/20/25 04:47
Labs
Hgb 12.5 g/dL (12.0-16.0) 06/20/25 04:47
Hct 36.5 % (37.0-47.0) L 06/20/25 04:47
Plt Count 188 10^3/uL (130-400) 06/20/25 04:47
PT 20.6 Sec (11.4-14.6) H 06/17/25 12:46
INR 1.74 06/17/25 12:46
Sodium 142 mmol/L (135-145) 06/20/25 04:47
Potassium 3.4 mmol/L (3.5-5.1) L 06/20/25 04:47
BUN 18 mg/dl (7-17) H 06/20/25 04:47
Creatinine 0.9 mg/dL (0.6-1.0) 06/20/25 04:47
Glucose 94 mg/dl (70-99) 06/20/25 04:47
Troponins
06/17/25
12:46
Troponin I < 0.012
Vital Signs and I&O:
Vital Signs
Temp Pulse Resp BP Pulse Ox
36.4 C 91 17 92/63 91
06/20/25 07:15 06/20/25 06:00 06/20/25 06:00 06/20/25 06:00 06/20/25 06:00
Vital Signs
Temp Pulse Resp BP Pulse Ox
36.4 C 91 17 92/63 91
06/20/25 07:15 06/20/25 06:00 06/20/25 06:00 06/20/25 06:00 06/20/25 06:00
Intake & Output
06/18/25 06/19/25 06/20/25 06/21/25
07:59 07:59 07:59 07:59
Intake Total 120 / 120 220 / 220 360 / 360
Output Total 3600 / 3600 4350 / 4350 3000 / 3000
Balance -3480 / -3480 -4130 / -4130 -2640 / -2640
Physical Exam
Physical Exam
See above
--- NOTE | 2025-06-20 11:10 | PTCARENOTE ---
Assumed care of patient at beginning of this shift from previous RN with O2 5l n/c in use; POx 91-92%. HR went to 130s-140s; EKG interpretation showed afib with RVR. Patient denied any CP or SOB. TT sent to both Dr Hernandez and Dr Moralez. MG 1.2, K
3.4; Mg rider and po potassium ordered and given. Amiodarone infusion started; midodrine ordered and given. Dr TEO Dunn up to see patient. See worklist for full assessment and vital signs.
--- NOTE | 2025-06-20 11:20 | CM ---
Following up on Patient. RN stated that patient went into Afib and on a heart drip now and cardiology is following. JAMILA Buck chart checked and saw that PT/OT recommended Home PT/OT on 06/18.
Met with patient about this who said that not today, but the last 2 days have been getting up herself going to the bathroom, so feels she will not need Home PT/OT
PLAN: Likely Home No Needs
--- NOTE | 2025-06-20 13:30 | PN.CDI ---
CDI
- -
CDI:
Physician Documentation Request
Admit Date: 06/17/25 18:15
Dear Doctor Mary,
Please review the following and provide your response in the progress notes.
Clinical Indicators:
The diagnosis of CRISTIAN was documented on 06/17 H&P but is not consistently noted in subsequent documentation.
- 06/17 H&P 'CRISTIAN-stage I--Baseline serum creatinine of 0.7, eGFR greater than 60--Likely secondary to fluid overload, prerenal'
- no history of CKD
-
Laboratory Tests
06/17/25 06/19/25 06/20/25
12:46 09:27 04:47
Creatinine 1.0 0.9 0.9
eGFR 56.25 > 60.00 > 60.00
Please clarify the following:
____ - CRISTIAN was present on admission and is now resolved.
____ - CRISTIAN was ruled out
____ - Other (please specify)
Use of terms such as suspected, likely, concern for, or probable (associated with a specific diagnosis that is being evaluated, monitored, or treated as if it exists) are acceptable and can be coded in the inpatient setting, when documented at the
time of discharge.
Thank you,
Edgard Oconnell RN
CDI Specialist
Please use your independent medical judgment in providing your response.
--- NOTE | 2025-06-20 13:47 | PN.CDI ---
CDI
- -
CDI:
Physician Documentation Request
Admit Date: 06/17/25 18:15
Dear Doctor Mary,
Please review the following and provide your response in the progress notes.
Clinical Indicators:
- RN skin assessments indicate Stage 1 buttocks pressure injury, POA
Physician documentation of the type and location of wounds is required for compliant documentation. Based on the above clinical findings and your assessment, please provide the following in your progress note:
1. Location of the ulcer/wound, including laterality.
2. Type (etiology) of ulcer/wound:
- Diabetic ulcer
- Arterial (ischemic) ulcer
- Traumatic wound
- Venous stasis ulcer
- Pressure (decubitus) ulcer
- Other
Use of terms such as suspected, likely, concern for, or probable (associated with a specific diagnosis that is being evaluated, monitored, or treated as if it exists) are acceptable and can be coded in the inpatient setting, when documented at the
time of discharge.
Thank you,
Edgard Oconnell RN
CDI Specialist
Please use your independent medical judgment in providing your response.
*Source: National Pressure Ulcer Advisory Panel (NPUAP)
--- NOTE | 2025-06-20 16:40 | PTCARENOTE ---
Patient has had several SBPs less than 90 with MAPs in the 70s. Amiodarone infusion decreased to 0.5.g/min after initial rate, as per order. BP 91/69 with MAP 78 at 16:13, HR 112. At 16:30 BP 88/67 with MAP 76 HR 112. EKG repeated to confirm rhythm;
interpretation showed aflutter with variable AV block with PVC. TT sent to Dr TEO Dunn; instructed to continue Amiodarone infusion at 0.5mg/hr.
[2025-06-20] MEDS: ALDACTONE PO (17:19)
[2025-06-20] MEDS: NEO-SYNEPHRINE 250 IV (17:51)
--- NOTE | 2025-06-20 17:57 | PTCARENOTE ---
BPs continue to run lo: 82/66, MAP 73; amiodarone infusing at 0.5mg/min. TT sent to Dr Lan Bowers; instructed to continue amiodarone infusion and ordered phenylephrine, which was started at initial ordered rate of 20 mcg/min. Order also entered
by Dr Bowers for NPO after MN. Patient updated on plan of care.
[2025-06-20] MEDS: KCL 20 MEQ PO (20:57)
[2025-06-21] VITALS (59 sets, daily range): BP systolic 72–115; BP diastolic 51–97; PULSE 2–72; BMI 31.6
--- NOTE | 2025-06-21 00:41 | PTCARENOTE ---
Pt continues on Amiodarone gtt HR in 110's. Pt continues on Phenylephrine gtt now at 80mcg/min with BP around goal. Night REPORTING COORDINATOR made aware, order placed for midodrine. Pt having positive results BP now at goal per order. Pt appears to be tolerating
gtts well. Pt AAOx4 forget full at times. Pt SPO2 dropping into low 80's. Pt not appearing in any distress, answering questions appropriately. RT to bed side, Pt placed on midflow at 10L to meet goal of 90%. B/L lung sounds clear slightly diminished
in bases. Call teran within reach bed in lowest position
--- NOTE | 2025-06-21 03:46 | PTCARENOTE ---
Addendum entered by Nneka Newby RN 06/21/25 05:03:
YANET gtt tapered off per order. Pt now on 5L midflow spo2 94%. EKG done print out ST
Original Note:
Pt having periods of low spo2 into the mid 80's on midflow. Pt will return to 88%-91% for periods of time. Pt also stating she is having trouble sleeping. Night DIRECTOR OF FINANCIAL PLANNING made aware of change. Pt does not show any signs of distress and communicates
appropriately. At this time Pt is on 10L midflow spo2 88%-91%, respirations even unlabored rr 14-22. Pt remains on Amio gtt and Yanet gtt. Currently titrating YANET gtt per order, see work list. Call teran within reach.
[2025-06-21 04:57] LABS: Hematocrit 38.2 % (37.0-47.0); Hemoglobin 12.7 g/dL (12.0-16.0); Mean Corp Hgb Conc. 33.2 g/dL (33.0-37.0); Mean Corpuscular Volume 101.6 fL (81.0-99.0); Platelet Count 208 10^3/uL (130-400); Red Cell Dist. Width 15.7 % (11.5-14.5)
[2025-06-21 05:18] LABS: Blood Urea Nitrogen 18 mg/dl (7-17); Calcium 8.6 mg/dl (8.4-10.2); Carbon Dioxide 34 mmol/L (22-30); Chloride 101 mmol/L (98-107); Estimated Creatinine Clearance 47 ml/min; Glucose 118 mg/dl (70-99); Magnesium 2.0 mg/dl (1.6-2.3); Potassium 3.8 mmol/L (3.5-5.1); Sodium 139 mmol/L (135-145); eGFR > 60.00
[2025-06-21] MEDS: AYR SALINE NASAL GEL 1 APPLIC NASAL ×2 (05:37→20:12)
[2025-06-21] MEDS: CORDARONE 518 MG IV (07:26)
[2025-06-21] MEDS: ELIQUIS 5 MG PO ×2 (07:32→20:12)
[2025-06-21] MEDS: LASIX 40 MG PO (07:32)
[2025-06-21] MEDS: TYLENOL 650 MG PO (07:32)
[2025-06-21] MEDS: PROTONIX 40 MG PO (07:32)
--- NOTE | 2025-06-21 09:52 | ITS.CL.CARDI ---
Dog Groomer - Cardioversion
Cardioversion
Procedure Report:
Date of Procedure:
Procedure: Cardioversion
Indication: Symptomatic atrial flutter
Performing Physician: Patrice Martel MD
Technique: Signed informed consent was obtained. A time out was called and performed. The patient was anesthetized by the anesthesia service. Anticoagulation status was reviewed and appropriate. R2 pads were placed anteriorly and posteriorly. A 200
J synchronized biphasic shock restored normal sinus rhythm without significant bradycardia. There were no complications.
Conclusion: Cardioversion from atrial flutter to sinus rhythm.
Recommendation: Routine post cardioversion care. Continue middle or intermediate school principal anticoagulation.
--- NOTE | 2025-06-21 09:55 | W.PN.HOSP.TC ---
Today's Communication/Plan
-
see plan
Assessment / Plan
Assessment / Plan
Gen: NAD, Awake and alert
Eyes: EOMI, PERRLA, no scleral icterus.
Neck: supple.
CV: RRR, +S1/S2, no m/r/g.
Resp: CCTAB anteriorly
Abd: +BS, soft, NT, ND
Skin: No rashes. 2+ B/L edema.
Neuro: CN 2-12 intact, non-focal.
Psych: Normal mood and affect.
Echo 05/09/25:
1. Ejection fraction is 55-60% by Ponce's method of discs.
2. Mild concentric left ventricular hypertrophy.
3. The left ventricle is small in size. 'D' shaped interventricular septum in systole and diastole consistent with right ventricular pressure and volume overload.
4. Mild-Moderately dilated, hypocontractile right ventricle. Prominent moderator band.
5. Trileaflet aortic valve which opens normally. Mild focal calcification.
6. Moderate to severe tricuspid regurgitation.
7. Tricuspid valve opens normally. moderate to severe tricuspid regurgitation. Estimated pulmonary artery pressure of 84 mmHg assuming a right atrial pressure of 3 mmHg.
8. Compared to a prior transthoracic echocardiogram study from 02/10/2025 no significant changes are seen.
CXR: L-sided pleural effusion. Linear foci are likely subsegmental atelectasis.
Acute on chronic hypoxemic respiratory failure due to acute on chronic HFpEF:
-cards following
-baseline 2L NC O2 HS, currently on 5L NC O2
-proBNP 8690
-was on IV Lasix, now transitioned to PO Lasix
-daily wts, I/Os
-cont aldactone
-cardiogenic shock due to acute on chronic HFpEF and afib with RVR, currently on Midodrine, was on Norsynephrine overnight, now off
Afib with RVR:
-Mg/K repleted
-cont amio gtt (started )
-already on eliquis
-s/p cardioversion this AM
Other problems:
Hypomagnesemia, resolved
Hypokalemia, resolved
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
Essential HTN: currently on Aldactone for CHF
Mild intermittent asthma, not in acute exac
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
History of alcohol abuse disorder in remission
HLD
LBBB
FULL/Eliquis
Total critical care time spent = 31 min
Anticipated Discharge: > 48 hours
Subjective/Interval History
-
Date of Service: June 21, 2025
No new complaints.
Objective Data
-
Labs:
Laboratory Results
06/21/25
04:39
WBC 6.8
Hgb 12.7
Hct 38.2
Plt Count 208
Sodium 139
Potassium 3.8
Chloride 101
Carbon Dioxide 34 H
BUN 18 H
Creatinine 0.9
Glucose 118 H
Calcium 8.6
Vital Signs:
Vital Signs
Temp Pulse Resp BP Pulse Ox
98.1 F 112 19 96/82 92
06/21/25 07:00 06/21/25 08:30 06/21/25 08:30 06/21/25 08:30 06/21/25 08:46
I&O
06/20/25 06/21/25 06/22/25
06:59 06:59 06:59
Intake Total 360 / 360 962.4 / 962.4
Output Total 3000 / 3000 1010 / 1010
Balance -2640 / -2640 -47.6 / -47.6
--- NOTE | 2025-06-21 09:55 | PTCARENOTE ---
Addendum entered by Jesika Alex RN 06/21/25 10:57:
250 cc IV fluid given during procedure
Original Note:
Patient cardioverted at the bedside with cardiac cath tech staff, speech lang path and physician. See Timeout Procedure for details of Cardioversion. Patient hypoxic post procedure. placed on bi-pap. pox POX 94% on bipap. See anesthesia flowsheet for medications given
by BED OPERATOR. Patient AA0 x 3, follows commands.
--- NOTE | 2025-06-21 10:38 | PTCARENOTE ---
Handoff report given to bedside nurse. Closing bp 101/67. pox 96%. patient aao x 3.
--- NOTE | 2025-06-21 10:53 | W.PN.CARDCBS ---
Today's Communication / Plan
-
Status post cardioversion and back in sinus rhythm. Switched amiodarone to 200 mg p.o. 3 times daily.
Hold spironolactone for now.
Remains on high flow oxygen for pulmonary hypertension/CHF. Will repeat echocardiogram today now that back in sinus rhythm.
Continue Lasix 40 mg p.o. daily.
Continue midodrine for blood pressure support.
Impression / Plan
-
PCP: Wendy Howell
Chemical Tank Worker: Junie Bowers
Please refer to office visit note from 06/17/2025 as official H&P
Impression:
Presents 06/17/2025 with weight gain, lower extremity edema, shortness of breath
Hypoxemia, pulse ox 81% on room air
Acute heart failure with preserved ejection fraction, proBNP 8690
Bilateral pulmonary emboli with directed thrombolysis
Severe pulmonary hypertension
bilateral popliteal thrombi, non-occlusive (01/2025)
Chronic nocturnal oxygen therapy at home with 2 L at night
Cardiomyopathy with recovered ejection fraction, (EF 15% in 2003)
Chronic left bundle branch block
Hyperlipidemia
Intermittent asthma
Right hip replacement 2020
Echocardiogram 05/09/2025: EF 55 to 60%. Mild LVH. D-shaped interventricular septum in systole and diastole consistent with RV pressure and volume overload. Mild to moderate dilated hypocontractile right ventricle.� Moderate to severe TR with PA
pressure 84 mmHg.
Echo 02/10/2025: EF 57%. Mild to moderate enlarged RV with mildly reduced RV systolic function and D shaped interventricular septum consistent with RV pressure and volume overload. Trace MR. Moderate TR with PAP 76 mmHg
Echo 09/05/2023 Normal left ventricular size. LV ejection fraction is 49% by Ponce's biplane method of discs. Visually appears 50-55%. Mild LVH. Normal RV. Mild MR.
Plan:
Her blood pressure did not tolerate the neosynephrine. On midodrine now for blood pressure support.
Was cardioverted today and back in sinus rhythm with PACs. Will switch amiodarone to oral amiodarone 200 mg p.o. 3 times daily
Ultimately will switch to 100 mg p.o. twice daily for 2 weeks then 200 mg daily. Hopefully we can maintain sinus rhythm. Continue Eliquis
Will continue Lasix 40 mg p.o. daily. Hold spironolactone with hypotension.
Ultimately should be considered for Adempas for thromboembolic pulmonary hypertension.
Now that back in sinus rhythm will repeat echocardiogram reevaluate LVEF and pulmonary artery pressures.
Remains on BiPAP and high flow oxygen.
Progress Note - Chemical Tank Worker
Subjective
Date of Service: June 21, 2025
Still with shortness of breath today. Was cardioverted and back in sinus rhythm. Blood pressure remains marginal.
Objective
Labs:
06/21/25 04:39
06/21/25 04:39
Labs
Hgb 12.7 g/dL (12.0-16.0) 06/21/25 04:39
Hct 38.2 % (37.0-47.0) 06/21/25 04:39
Plt Count 208 10^3/uL (130-400) 06/21/25 04:39
PT 20.6 Sec (11.4-14.6) H 06/17/25 12:46
INR 1.74 06/17/25 12:46
Sodium 139 mmol/L (135-145) 06/21/25 04:39
Potassium 3.8 mmol/L (3.5-5.1) 06/21/25 04:39
BUN 18 mg/dl (7-17) H 06/21/25 04:39
Creatinine 0.9 mg/dL (0.6-1.0) 06/21/25 04:39
Glucose 118 mg/dl (70-99) H 06/21/25 04:39
Vital Signs and I&O:
Vital Signs
Temp Pulse Resp BP Pulse Ox
98.1 F 68 20 101/69 96
06/21/25 07:00 06/21/25 10:40 06/21/25 10:40 06/21/25 10:40 06/21/25 10:40
Vital Signs
Temp Pulse Resp BP Pulse Ox
98.1 F 68 20 101/69 96
06/21/25 07:00 06/21/25 10:40 06/21/25 10:40 06/21/25 10:40 06/21/25 10:40
Intake & Output
06/19/25 06/20/25 06/21/25 06/22/25
06:59 06:59 06:59 06:59
Intake Total 220 / 220 360 / 360 962.4 / 962.4
Output Total 4350 / 4350 3000 / 3000 1010 / 1010
Balance -4130 / -4130 -2640 / -2640 -47.6 / -47.6
Physical Exam
Physical Exam
GEN: No distress, awake, Ox3
HEENT: supple, anicteric, mmm
LUNGS: bilat rhonchi
CV: Reg, S1/S2, 1/6 syst LSB, no gallop
ABD: soft, BS+, NT/ND
EXT: No edema
NEURO: Gross non-focal
SKIN: No rash
--- NOTE | 2025-06-21 12:28 | CARDSERVLU ---
Echocardiogram with [facility] completed after protocol screening completed. Allergies verified.
Patent IV site: _R hand____
IV site flushed with 0.9% NaCl pre and post administration.
Diluted bolus method utilized to enhance visualization of ventricular luu.
Total volume given: __3.5__ mL
Patient tolerated all procedures well without complications.
[2025-06-21] MEDS: PACERONE 200 MG PO ×3 (12:42→21:46)
--- NOTE | 2025-06-21 14:42 | W.PN.UPDATE ---
Update Note
Progress Note Update
back to check on patient. resting comfortably. on 6L NC. remains in SR with PACs. echo pending. continue amiodarone 200mg TID, eliquis. d/w nursing
--- NOTE | 2025-06-21 15:31 | CM ---
Following up on Patient. RN stated that patient was just cardioverted and pending an echo so not medically ready. Again, patient refused Home PT/OT.
PLAN: Home No Needs vs PT
[2025-06-22] VITALS (25 sets, daily range): BP systolic 92–116; BP diastolic 60–87; PULSE 92; O2SAT 92; BMI 31.6
--- NOTE | 2025-06-22 02:35 | PTCARENOTE ---
Pt remains in SR with PAC's. Pt BP remains within goal at this time. SPO2 90%-93% 6L nc. Pt requesting to use bsc. Pt sat on side of bed, stood turned pivoted to bscx1 without any distress, vitas remained stable. Pt has no complaints at this time.
Assessment care and vitals as charted. Call teran within reach.
--- NOTE | 2025-06-22 09:13 | W.PN.HOSP.TC ---
Today's Communication/Plan
-
see plan
Assessment / Plan
Assessment / Plan
Gen: NAD, Awake and alert
Eyes: EOMI, PERRLA, no scleral icterus.
Neck: supple.
CV: remains RRR, +S1/S2, no m/r/g.
Resp: CTAB B/L
Abd: +BS, soft, NT, ND
Skin: No rashes. 1+ B/L edema.
Neuro: CN 2-12 intact, non-focal.
Psych: Normal mood and affect.
Echo 05/09/25:
1. Ejection fraction is 55-60% by Pocne's method of discs.
2. Mild concentric left ventricular hypertrophy.
3. The left ventricle is small in size. 'D' shaped interventricular septum in systole and diastole consistent with right ventricular pressure and volume overload.
4. Mild-Moderately dilated, hypocontractile right ventricle. Prominent moderator band.
5. Trileaflet aortic valve which opens normally. Mild focal calcification.
6. Moderate to severe tricuspid regurgitation.
7. Tricuspid valve opens normally. moderate to severe tricuspid regurgitation. Estimated pulmonary artery pressure of 84 mmHg assuming a right atrial pressure of 3 mmHg.
8. Compared to a prior transthoracic echocardiogram study from 02/10/2025 no significant changes are seen.
CXR: L-sided pleural effusion. Linear foci are likely subsegmental atelectasis.
Acute on chronic hypoxemic respiratory failure due to acute on chronic HFpEF:
-cards following
-baseline 2L NC O2 HS, currently on 5L NC O2
-proBNP 8690
-was on IV Lasix, now transitioned to PO Lasix
-daily wts, I/Os
-cont aldactone
-cardiogenic shock due to acute on chronic HFpEF and afib with RVR, currently on Midodrine, was on Norsynephrine 06/20-06/21 night, now off
Afib with RVR:
-Mg/K repleted
-was on amio gtt, now transitioned to PO Amio
-already on eliquis
-s/p cardioversion
Other problems:
Hypomagnesemia, resolved
Hypokalemia, resolved
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
Essential HTN: currently on Aldactone for CHF
Mild intermittent asthma, not in acute exac
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
History of alcohol abuse disorder in remission
HLD
LBBB
FULL/Eliquis
Dispo: Likely d/c tomorrow.
Anticipated Discharge: Within 24 hours
Subjective/Interval History
-
Date of Service: June 22, 2025
No new complaints.
Objective Data
-
Vital Signs:
Vital Signs
Temp Pulse Resp BP Pulse Ox
97.7 F 76 20 108/80 94
06/22/25 07:30 06/22/25 06:00 06/22/25 06:00 06/22/25 06:00 06/22/25 06:00
I&O
06/21/25 06/22/25 06/23/25
06:59 06:59 06:59
Intake Total 962.4 / 962.4 120 / 120
Output Total 1010 / 1010 500 / 500
Balance -47.6 / -47.6 -380 / -380
[2025-06-22] MEDS: ELIQUIS 5 MG PO ×2 (09:20→19:48)
[2025-06-22] MEDS: PACERONE 200 MG PO ×3 (09:20→22:00)
[2025-06-22] MEDS: LASIX 40 MG PO (09:21)
[2025-06-22] MEDS: TYLENOL 650 MG PO (09:21)
[2025-06-22] MEDS: PROTONIX 40 MG PO (09:21)
--- NOTE | 2025-06-22 10:36 | PTCARENOTE ---
Assumed care of patient this morning. She is aaox3. Pt expressing that she is not sleeping and would like to go home. Pt remains on 5L of oxygen, received on 6L this morning. Pt up to chair approx 0935 with assist x1, O2 does drop with exertion to
mid 80s. Lungs diminished. Assessment, care and VS as charted.
--- NOTE | 2025-06-22 10:41 | W.PN.CARDCBS ---
Today's Communication / Plan
-
Remains in sinus rhythm. Check repeat EKG on amiodarone. Continue amiodarone 200 mg p.o. 3 times daily.
Will give extra Lasix 20 mg IV this afternoon. Continue Lasix 40 mg p.o. daily.
Continue Eliquis
Check repeat proBNP and wean oxygen.
Is slowly improving.
Impression / Plan
-
PCP: Wendy Howell
Classification Officer: Junie Bowers
Please refer to office visit note from 06/17/2025 as official H&P
Impression:
Presents 06/17/2025 with weight gain, lower extremity edema, shortness of breath
Hypoxemia, pulse ox 81% on room air
Acute heart failure with preserved ejection fraction, proBNP 8690
Bilateral pulmonary emboli with directed thrombolysis
Severe pulmonary hypertension
bilateral popliteal thrombi, non-occlusive (01/2025)
Chronic nocturnal oxygen therapy at home with 2 L at night
Cardiomyopathy with recovered ejection fraction, (EF 15% in 2003)
Chronic left bundle branch block
Hyperlipidemia
Intermittent asthma
Right hip replacement 2020
Echocardiogram 05/09/2025: EF 55 to 60%. Mild LVH. D-shaped interventricular septum in systole and diastole consistent with RV pressure and volume overload. Mild to moderate dilated hypocontractile right ventricle.� Moderate to severe TR with PA
pressure 84 mmHg.
Echo 02/10/2025: EF 57%. Mild to moderate enlarged RV with mildly reduced RV systolic function and D shaped interventricular septum consistent with RV pressure and volume overload. Trace MR. Moderate TR with PAP 76 mmHg
Echo 09/05/2023 Normal left ventricular size. LV ejection fraction is 49% by Ponce's biplane method of discs. Visually appears 50-55%. Mild LVH. Normal RV. Mild MR.
Echo 06/21/25: EF 50 to 55%, mildly dilated RV with moderate RV hypokinesis, moderate-severe TR PA pressure 57
Plan:
Remains in sinus rhythm. Continue amiodarone 200 mg p.o. 3 times daily
Ultimately will switch to 200 mg p.o. twice daily for 2 weeks then 200 mg daily. Hopefully we can maintain sinus rhythm. Continue Eliquis
Will continue Lasix 40 mg p.o. daily and give extra 20 mg IV today. Blood pressures improved but overall remains marginal. Hold spironolactone with hypotension.
Ultimately should be considered for Adempas for thromboembolic pulmonary hypertension. Repeat echo with PA pressure approximately 57.
Hopefully will wean oxygen today.
Continue midodrine to support blood pressure. Repeat proBNP in AM.
Progress Note - Classification Officer
Subjective
Date of Service: June 22, 2025
Slowly improving and remains in sinus rhythm. Denies chest pain
Objective
Labs:
06/21/25 04:39
06/21/25 04:39
Labs
Hgb 12.7 g/dL (12.0-16.0) 06/21/25 04:39
Hct 38.2 % (37.0-47.0) 06/21/25 04:39
Plt Count 208 10^3/uL (130-400) 06/21/25 04:39
PT 20.6 Sec (11.4-14.6) H 06/17/25 12:46
INR 1.74 06/17/25 12:46
Sodium 139 mmol/L (135-145) 06/21/25 04:39
Potassium 3.8 mmol/L (3.5-5.1) 06/21/25 04:39
BUN 18 mg/dl (7-17) H 06/21/25 04:39
Creatinine 0.9 mg/dL (0.6-1.0) 06/21/25 04:39
Glucose 118 mg/dl (70-99) H 06/21/25 04:39
Vital Signs and I&O:
Vital Signs
Temp Pulse Resp BP Pulse Ox
97.7 F 84 19 103/68 91
06/22/25 07:30 06/22/25 10:00 06/22/25 10:00 06/22/25 10:00 06/22/25 10:23
Vital Signs
Temp Pulse Resp BP Pulse Ox
97.7 F 84 19 91
06/22/25 07:30 06/22/25 10:00 06/22/25 10:00 06/22/25 10:00 06/22/25 10:23
Intake & Output
06/20/25 06/21/25 06/22/25 06/23/25
06:59 06:59 06:59 06:59
Intake Total 360 / 360 962.4 / 962.4 120 / 120
Output Total 3000 / 3000 1010 / 1010 500 / 500
Balance -2640 / -2640 -47.6 / -47.6 -380 / -380
Physical Exam
Physical Exam
GEN: No distress, awake, Ox3
HEENT: supple, anicteric, mmm
LUNGS: scatt rhonchi
CV: Reg, S1/S2, 1/6 syst LSB, S3+
ABD: soft, BS+, NT/ND
EXT: No edema
NEURO: Gross non-focal
SKIN: No rash
--- NOTE | 2025-06-22 10:57 | CM ---
Addendum entered by Cielo Isabel 06/22/25 11:34:
IMM completed
Original Note:
Following up Patient. PT/OT has been following and no plans to see her today, but originally recommended Home PT/OT. JAMILA Buck checked with patient ( was present) about Home PT and she is agreeable to try it and can always end the sessions
when she wants.
Patient agreeable to [facility] for Home PT, referral made to [facility]. Patient has 2 liters of O2 at home. Patient said that her will take her home and bring her oxygen to get her home.
PLAN: Home with PT when ready.
--- NOTE | 2025-06-22 12:07 | VNURNOTE ---
Home Health Liaison met with patient and spouse at bedside to discuss [facility] nurse/therapy, visits, schedule and homebound status. Patient is agreeable and understands that visits at home will be 2-3 x per week to assess and teach medical
management. Pt current with [facility] for home 02. This author confirmed with [facility] rep Lashaun that her home 02 concentrator maxes at 5 LPM. Noted that pt is currently on 4L 02.
Patient is aware that [facility] will contact them for start of care in 1-2 days after discharge from . Provided contact number for [facility].
[facility] referral completed in [facility].
[2025-06-22] MEDS: LASIX 20 MG IV (12:23)
[2025-06-23] VITALS (24 sets, daily range): BP systolic 100–127; BP diastolic 56–97; BMI 31.3
--- NOTE | 2025-06-23 04:15 | PTCARENOTE ---
assumed care of patient from previous RN. patient aaox3. patient remaining on 5L NC. pulse ox dropping with exertion into mid 80s. Assessment and vital signs charted. call teran in reach.
[2025-06-23 04:55] LABS: Hematocrit 35.3 % (37.0-47.0); Hemoglobin 11.7 g/dL (12.0-16.0); Mean Corp Hgb Conc. 33.1 g/dL (33.0-37.0); Mean Corpuscular Volume 101.4 fL (81.0-99.0); Platelet Count 172 10^3/uL (130-400); Red Cell Dist. Width 15.1 % (11.5-14.5)
[2025-06-23 05:11] LABS: Blood Urea Nitrogen 20 mg/dl (7-17); Calcium 8.7 mg/dl (8.4-10.2); Carbon Dioxide 35 mmol/L (22-30); Chloride 101 mmol/L (98-107); Estimated Creatinine Clearance 46 ml/min; Glucose 93 mg/dl (70-99); Potassium 3.2 mmol/L (3.5-5.1); Sodium 139 mmol/L (135-145); eGFR > 60.00
[2025-06-23] MEDS: TYLENOL 650 MG PO (08:46)
[2025-06-23] MEDS: PROTONIX 40 MG PO (08:47)
[2025-06-23] MEDS: PACERONE 200 MG PO ×3 (08:47→20:03)
[2025-06-23] MEDS: ELIQUIS 5 MG PO ×2 (08:47→20:03)
[2025-06-23] MEDS: LASIX 40 MG PO (08:47)
--- NOTE | 2025-06-23 09:19 | W.PN.HOSP.TC ---
Today's Communication/Plan
-
see plan
Assessment / Plan
Assessment / Plan
Gen: NAD, Awake and alert
Eyes: EOMI, PERRLA, no scleral icterus.
Neck: supple.
CV: remains RRR, +S1/S2, no m/r/g.
Resp: CTAB B/L
Abd: +BS, soft, NT, ND
Skin: No rashes. 1+ B/L edema.
Neuro: CN 2-12 intact, non-focal.
Psych: Normal mood and affect.
Echo 05/09/25:
1. Ejection fraction is 55-60% by Ponce's method of discs.
2. Mild concentric left ventricular hypertrophy.
3. The left ventricle is small in size. 'D' shaped interventricular septum in systole and diastole consistent with right ventricular pressure and volume overload.
4. Mild-Moderately dilated, hypocontractile right ventricle. Prominent moderator band.
5. Trileaflet aortic valve which opens normally. Mild focal calcification.
6. Moderate to severe tricuspid regurgitation.
7. Tricuspid valve opens normally. moderate to severe tricuspid regurgitation. Estimated pulmonary artery pressure of 84 mmHg assuming a right atrial pressure of 3 mmHg.
8. Compared to a prior transthoracic echocardiogram study from 02/10/2025 no significant changes are seen.
CXR: L-sided pleural effusion. Linear foci are likely subsegmental atelectasis.
Acute on chronic hypoxemic respiratory failure due to acute on chronic HFpEF:
-cards following
-baseline 2L NC O2 HS, currently on 5-6L NC O2
-proBNP 8690, now 10,000
-was on IV Lasix, now transitioned to PO Lasix (although was given 20mg IV lasix 06/22)
-daily wts, I/Os
-cont aldactone
-cardiogenic shock due to acute on chronic HFpEF and afib with RVR, currently on Midodrine, was on Norsynephrine 06/20-06/21 night, now off
-repeat CXR
Afib with RVR:
-Mg/K repleted
-was on amio gtt, now transitioned to PO Amio
-already on eliquis
-s/p cardioversion
Other problems:
Hypomagnesemia, resolved
Hypokalemia, resolved
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
Essential HTN: currently on Aldactone for CHF
Mild intermittent asthma, not in acute exac
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
History of alcohol abuse disorder in remission
HLD
LBBB
FULL/Eliquis
Anticipated Discharge: 24 - 48 hours
Subjective/Interval History
-
Date of Service: June 23, 2025
No new complaints.
Objective Data
-
Labs:
Laboratory Results
06/23/25
04:31
WBC 5.8
Hgb 11.7 L
Hct 35.3 L
Plt Count 172
Sodium 139
Potassium 3.2 L
Chloride 101
Carbon Dioxide 35 H
BUN 20 H
Creatinine 0.9
Glucose 93
Calcium 8.7
Vital Signs:
Vital Signs
Temp Pulse Resp BP Pulse Ox
98.0 F 74 16 108/72 92
06/23/25 07:59 06/23/25 08:47 06/23/25 08:00 06/23/25 08:47 06/23/25 08:00
I&O
06/22/25 06/23/25 06/24/25
06:59 06:59 06:59
Intake Total 120 / 120 960 / 960
Output Total 500 / 500 600 / 600
Balance -380 / -380 360 / 360
--- NOTE | 2025-06-23 14:30 | PN.CDI ---
CDI
- -
CDI:
Physician Documentation Request
Admit Date: 06/17/25 18:15
Dear Doctor Tahmina,
Please review the following and provide your response in the progress notes.
Clinical Indicators:
- 06/21 Locomotive Engineer report indicates symptomatic atrial flutter without specificity
- 'Cardioversion from atrial flutter to sinus rhythm'
- 06/20 EKG atrial rate 223
- 06/21 EKG atrial rate 114
If possible, please provide further specificity regarding atrial flutter, such as:
Typical Atrial Flutter - Type I: Classic or common atrial flutter, Rate is 240-340 beats/min. Usually responds to atrial pacing.
Atypical Atrial Flutter - Type II: Less common and more unstable. Rate is 340-440 beats/min. Less responsive to atrial pacing.
Other - please specify
Use of terms such as suspected, likely, concern for, or probable (associated with a specific diagnosis that is being evaluated, monitored, or treated as if it exists) are acceptable and can be coded in the inpatient setting, when documented at the
time of discharge.
Thank you,
Edgard Oconnell RN
CDI Specialist
Please use your independent medical judgment in providing your response.
[2025-06-23] MEDS: KCL 40 MEQ PO (16:22)
--- NOTE | 2025-06-23 18:04 | W.PN.CARDCBS ---
Addendum entered and electronically signed by Patrice Martel MD 06/23/25 18:09:
Atrial flutter was atypical in origin
Original Note:
Today's Communication / Plan
-
Remains in sinus rhythm. Will decrease amiodarone to 200 mg p.o. twice daily.
Continue Lasix 40 mg p.o. daily and extra 20 mg IV today. Her weight is overall down 15 pounds.
proBNP though remains elevated
Continue attempts to wean oxygen and increase activity.
Impression / Plan
-
PCP: Wendy Howell
Washer Carcass: Junie Boewrs
Please refer to office visit note from 06/17/2025 as official H&P
Impression:
Presents 06/17/2025 with weight gain, lower extremity edema, shortness of breath
Hypoxemia, pulse ox 81% on room air
Acute heart failure with preserved ejection fraction, proBNP 8690
Bilateral pulmonary emboli with directed thrombolysis
Severe pulmonary hypertension
bilateral popliteal thrombi, non-occlusive (01/2025)
Chronic nocturnal oxygen therapy at home with 2 L at night
Cardiomyopathy with recovered ejection fraction, (EF 15% in 2003)
Chronic left bundle branch block
Hyperlipidemia
Intermittent asthma
Right hip replacement 2020
Echocardiogram 05/09/2025: EF 55 to 60%. Mild LVH. D-shaped interventricular septum in systole and diastole consistent with RV pressure and volume overload. Mild to moderate dilated hypocontractile right ventricle.� Moderate to severe TR with PA
pressure 84 mmHg.
Echo 02/10/2025: EF 57%. Mild to moderate enlarged RV with mildly reduced RV systolic function and D shaped interventricular septum consistent with RV pressure and volume overload. Trace MR. Moderate TR with PAP 76 mmHg
Echo 09/05/2023 Normal left ventricular size. LV ejection fraction is 49% by Ponce's biplane method of discs. Visually appears 50-55%. Mild LVH. Normal RV. Mild MR.
Echo 06/21/25: EF 50 to 55%, mildly dilated RV with moderate RV hypokinesis, moderate-severe TR PA pressure 57
Plan:
Remains in sinus rhythm. Continue amiodarone 200 mg p.o. 3 times daily. Will decrease amiodarone to 200 mg p.o. twice daily in a.m.
Continue Eliquis
Will continue Lasix 40 mg p.o. daily and give another extra 20 mg IV today. Blood pressures improved but overall remains marginal. Hold spironolactone with hypotension. proBNP remains elevated.
Ultimately should be considered for Adempas for thromboembolic pulmonary hypertension. Repeat echo with PA pressure approximately 57.
Hopefully will wean oxygen today.
Continue midodrine to support blood pressure.
May need to stay in rehab but patient adamant about going home
Progress Note - Washer Carcass
Subjective
Date of Service: June 23, 2025
Overall doing well and remains in sinus rhythm. No chest pains but remains on high flow oxygen.
Objective
Labs:
06/23/25 04:31
06/23/25 04:31
Labs
Hgb 11.7 g/dL (12.0-16.0) L 06/23/25 04:31
Hct 35.3 % (37.0-47.0) L 06/23/25 04:31
Plt Count 172 10^3/uL (130-400) 06/23/25 04:31
PT 20.6 Sec (11.4-14.6) H 06/17/25 12:46
INR 1.74 06/17/25 12:46
Sodium 139 mmol/L (135-145) 06/23/25 04:31
Potassium 3.2 mmol/L (3.5-5.1) L 06/23/25 04:31
BUN 20 mg/dl (7-17) H 06/23/25 04:31
Creatinine 0.9 mg/dL (0.6-1.0) 06/23/25 04:31
Glucose 93 mg/dl (70-99) 06/23/25 04:31
Vital Signs and I&O:
Vital Signs
Temp Pulse Resp BP Pulse Ox
98.1 F 70 15 112/97 96
06/23/25 15:58 06/23/25 16:22 06/23/25 16:00 06/23/25 18:01 06/23/25 16:00
Vital Signs
Temp Pulse Resp BP Pulse Ox
98.1 F 70 15 112/97 96
06/23/25 15:58 06/23/25 16:22 06/23/25 16:00 06/23/25 18:01 06/23/25 16:00
Intake & Output
06/21/25 06/22/25 06/23/25 06/24/25
06:59 06:59 06:59 06:59
Intake Total 962.4 / 962.4 120 / 120 960 / 960 240 / 240
Output Total 1010 / 1010 500 / 500 600 / 600
Balance -47.6 / -47.6 -380 / -380 360 / 360 240 / 240
Physical Exam
Physical Exam
GEN: No distress, awake, Ox3
HEENT: supple, anicteric, mmm
LUNGS: scatt rhonchi
CV: Reg, S1/S2, 1/6 syst LSB, S3+
ABD: soft, BS+, NT/ND
EXT: No edema
NEURO: Gross non-focal
SKIN: No rash
[2025-06-23] MEDS: KCL 20 MEQ PO (18:36)
[2025-06-23] MEDS: LASIX 20 MG IV (18:37)
[2025-06-24] VITALS (13 sets, daily range): BP systolic 95–114; BP diastolic 56–71; BMI 31.2
[2025-06-24 06:04] LABS: Hematocrit 35.7 % (37.0-47.0); Hemoglobin 12.1 g/dL (12.0-16.0); Mean Corp Hgb Conc. 33.9 g/dL (33.0-37.0); Mean Corpuscular Volume 102.3 fL (81.0-99.0); Platelet Count 166 10^3/uL (130-400); Red Cell Dist. Width 15.0 % (11.5-14.5)
[2025-06-24 06:24] LABS: Blood Urea Nitrogen 18 mg/dl (7-17); Calcium 8.8 mg/dl (8.4-10.2); Carbon Dioxide 35 mmol/L (22-30); Chloride 101 mmol/L (98-107); Estimated Creatinine Clearance 52 ml/min; Glucose 84 mg/dl (70-99); Magnesium 1.5 mg/dl (1.6-2.3); Potassium 3.8 mmol/L (3.5-5.1); Sodium 140 mmol/L (135-145); eGFR > 60.00
[2025-06-24] MEDS: ELIQUIS 5 MG PO (09:00)
[2025-06-24] MEDS: PROTONIX 40 MG PO ×2 (09:01→09:02)
[2025-06-24] MEDS: TYLENOL 650 MG PO (09:02)
[2025-06-24] MEDS: PACERONE 200 MG PO (09:02)
[2025-06-24] MEDS: LASIX 40 MG PO (09:05)
--- NOTE | 2025-06-24 09:42 | CM ---
Addendum entered by Cielo Isabel 06/24/25 12:12:
JAMILA Buck learned that patient weaned down later in the day and is being discharge. Patient has transportation home and IMM is completed again.
PLAN: Home w/ [facility] for PT
Original Note:
Following up on Patient. RN stated that patient is now on 4 and a half liters of oxygen, down from 5-6 liters yesterday. Had plueral infusion in her lungs. [facility] for Home PT is arranged already, just has to continue weaning down.
PLAN: Home w/ [facility]
--- NOTE | 2025-06-24 10:21 | W.PN.HOSP.TC ---
Addendum entered and electronically signed by Bairon Hernandez MD 06/24/25 11:26:
Total time spent on d/c = 39 min. This included today's physical exam, progress note, review of laboratory and diagnostic data, preparation of discharge documents and prescriptions, and discussions about the pt's hospital course and discharge plan
with the patient and other medical office scheduler involved in the patient's care.
Original Note:
Today's Communication/Plan
-
see plan
Assessment / Plan
Assessment / Plan
Gen: NAD, Awake and alert
Eyes: EOMI, PERRLA, no scleral icterus.
Neck: supple.
CV: continues to remain RRR, +S1/S2, no m/r/g.
Resp: faint rales and dec BS in the bases
Abd: +BS, soft, NT, ND
Skin: No rashes. 1-2+ B/L edema.
Neuro: CN 2-12 intact, non-focal.
Psych: Normal mood and affect.
Echo 05/09/25:
1. Ejection fraction is 55-60% by Ponce's method of discs.
2. Mild concentric left ventricular hypertrophy.
3. The left ventricle is small in size. 'D' shaped interventricular septum in systole and diastole consistent with right ventricular pressure and volume overload.
4. Mild-Moderately dilated, hypocontractile right ventricle. Prominent moderator band.
5. Trileaflet aortic valve which opens normally. Mild focal calcification.
6. Moderate to severe tricuspid regurgitation.
7. Tricuspid valve opens normally. moderate to severe tricuspid regurgitation. Estimated pulmonary artery pressure of 84 mmHg assuming a right atrial pressure of 3 mmHg.
8. Compared to a prior transthoracic echocardiogram study from 02/10/2025 no significant changes are seen.
CXR: L-sided pleural effusion. Linear foci are likely subsegmental atelectasis.
CXR 06/23: Small left pleural effusion, without significant change. Left lower lobe airspace disease may also be present.
Acute on chronic hypoxemic respiratory failure due to acute on chronic HFpEF:
-cards following
-baseline 2L NC O2 HS, currently on 5-6L NC O2
-proBNP 8690, now 10,000
-was on IV Lasix, now transitioned to PO Lasix (although was given 20mg IV lasix 06/22)
-daily wts, I/Os
-cont aldactone
-cardiogenic shock due to acute on chronic HFpEF and afib with RVR, currently on Midodrine, was on Norsynephrine 06/20-06/21 night, now off
-repeat CXR above, doubt PNA considering now fever or leukocytosis
Afib with RVR:
-Mg/K repleted
-was on amio gtt, now transitioned to PO Amio
-already on eliquis
-s/p cardioversion
Other problems:
Hypomagnesemia, s/p 2g IV Mg
Hypokalemia, resolved
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
Essential HTN: currently on Aldactone for CHF
Mild intermittent asthma, not in acute exac
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
History of alcohol abuse disorder in remission
HLD
LBBB
FULL/Eliquis
Dispo: Begin d/c planning
Anticipated Discharge: Today
Subjective/Interval History
-
Date of Service: June 24, 2025
No new complaints.
Objective Data
-
Labs:
Laboratory Results
06/24/25
05:49
WBC 5.7
Hgb 12.1
Hct 35.7 L
Plt Count 166
Sodium 140
Potassium 3.8
Chloride 101
Carbon Dioxide 35 H
BUN 18 H
Creatinine 0.8
Glucose 84
Calcium 8.8
Vital Signs:
Vital Signs
Temp Pulse Resp BP Pulse Ox
97.0 F 76 18 103/71 92
06/23/25 22:55 06/24/25 09:02 06/24/25 07:00 06/24/25 09:02 06/24/25 07:27
I&O
06/23/25 06/24/25 06/25/25
06:59 06:59 06:59
Intake Total 960 / 960 240 / 240
Output Total 600 / 600 600 / 600
Balance 360 / 360 -360 / -360
[2025-06-24] MEDS: MAGNESIUM SULFATE 50 IV (11:01)
--- NOTE | 2025-06-24 11:49 | W.DCSUMMARY ---
Discharge Summary
Discharge Data
Date of Admission: 06/17/25
Date of Discharge: 06/24/25
-
Pending Results: No
Hospital Course
Primary diagnoses:
Acute on chronic hypoxemic respiratory failure and cardiogenic shock due to acute on chronic heart failure with preserved ejection fraction
Atrial fibrillation with rapid ventricular response
Secondary diagnoses:
Chronic hypoxemic respiratory failure
Hypomagnesemia
Hypokalemia
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
Essential hypertension
Mild intermittent asthma
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
History of alcohol abuse disorder in remission
Hyperlipidemia
Left bundle branch block
Consultants:
Cardiology
Imaging:
Echo 05/09/25:
1. Ejection fraction is 55-60% by Ponce's method of discs.
2. Mild concentric left ventricular hypertrophy.
3. The left ventricle is small in size. 'D' shaped interventricular septum in systole and diastole consistent with right ventricular pressure and volume overload.
4. Mild-Moderately dilated, hypocontractile right ventricle. Prominent moderator band.
5. Trileaflet aortic valve which opens normally. Mild focal calcification.
6. Moderate to severe tricuspid regurgitation.
7. Tricuspid valve opens normally. moderate to severe tricuspid regurgitation. Estimated pulmonary artery pressure of 84 mmHg assuming a right atrial pressure of 3 mmHg.
8. Compared to a prior transthoracic echocardiogram study from 02/10/2025 no significant changes are seen.
CXR: L-sided pleural effusion. Linear foci are likely subsegmental atelectasis.
CXR 06/23: Small left pleural effusion, without significant change. Left lower lobe airspace disease may also be present.
80-year-old female presented with chief complaint of dyspnea on exertion 40 pound weight gain as outlined in the H&P done on admission. Hospital course per problem list:
Acute on chronic hypoxemic respiratory failure due to acute on chronic HFpEF: Patient had chronic hypoxemic respiratory failure and was on 2L NC O2 HS at baseline. She required up to 5-6L NC O2 while hospitalized. proBNP 8690 and repeat was 10,000.
She was diuresed with IV Lasix and lost 15Kg. She was transition to oral Lasix. She had cardiogenic shock due to acute on chronic HFpEF and afib with RVR and was started on midodrine. She was briefly on Norsynephrine 06/20-06/21 overnight. GDMT was
limited by BP. She was weaned to 3.5L NC O2 by discharge. The case was discussed with Dr. Martin of cardiology and he cleared the patient for discharge.
Afib with RVR: The patient's hypomagnesemia and hypokalemia were corrected. She was placed on an amiodarone drip and then transition to oral amiodarone. She underwent cardioversion 06/21AM to SR. Eliquis was continued.
Discharge Plan
-
Patient Disposition: Home (Routine Discharge)
Discharge Diagnosis/Procedures: Acute on chronic hypoxemic respiratory failure due to acute on chronic heart failure with preserved ejection fraction, atrial fibrillation with rapid ventricular response
Condition: Fair
Diet: Low Cholesterol, Low Sodium and Other diet
Additional Diets: fluid restrict to 1200cc/day
Activity: As tolerated
Driving Restrictions: Not until seen by your Dr
Blood Work: BMP, Mg, CBC in 1 week, script from PCP
Specialty Instructions: Weigh Daily- Call MD for wt gain/loss 3 lbs overnight/5 lbs in 1 week
Instructions: *[facility] Heart Failure Instructions
Referrals:
Wendy Howell CRNP [Family Provider, General] - in less than 1 week
Prescriptions:
New
furosemide 40 mg Tablet
40 mg PO DAILY Qty: 30 0RF
amiodarone [Pacerone] 200 mg Tablet
200 mg PO BID Qty: 60 0RF
midodrine 5 mg Tablet
5 mg PO TID@0800,1300,1800 Qty: 90 0RF
Continued
PRECIOUS-e 200 MG tablet
200 mg PO DAILY
Hair, Skin and Nails Advanced 1 EACH tablet
2 tab PO DAILY
cranberry conc-ascorbic acid 1 EACH capsule
2 tab PO DAILY
multivitamin with folic acid [Tab-A-Freda] 1 TABLET tablet
2 tab PO DAILY
omega 6-brx-jxr-fish oil [Fish Oil] 1 EACH capsule
2 tab PO DAILY Qty: 0 0RF
Rx Instructions:
Resume in 1 week.
cholecalciferol (vitamin D3) 25 mcg (1,000 unit) Tablet
25 mcg PO DAILY
pantoprazole 40 mg Tablet,Delayed Release (Dr/Ec)
40 mg PO DAILY 30 Days Qty: 30 0RF
Eliquis 5 mg tablet
5 mg PO BID 45 Days Qty: 90 0RF
acetaminophen [Tylenol] 325 mg Tablet
650 mg PO DAILY
coQ10 (ubiquinol) 200 mg Capsule
200 mg PO DAILY
spironolactone 25 MG tablet
12.5 mg PO QPM
Rx Instructions:
Hold if systolic blood pressure <130 while on Oxycodone.
Discharge Orders:
Discharge Patient (As Directed); Ordered 06/24/25
Ordered By: Bairon Hernandez
Discharge Date and Time
Print Language: ALGERIAN
[2025-06-24] MEDS: FLUZONE HIGH-DOSE 2025-26 0.5 ML IM (13:12)
--- NOTE | 2025-06-24 13:35 | W.PN.CARDCBS ---
Today's Communication / Plan
-
Stable for discharge
Impression / Plan
-
PCP: Wendy Howell
Chain Saw Mechanic: Junie Bowers
Please refer to office visit note from 06/17/2025 as official H&P
Impression:
Presents 06/17/2025 with weight gain, lower extremity edema, shortness of breath
Hypoxemia, pulse ox 81% on room air
Acute heart failure with preserved ejection fraction, proBNP 8690
Bilateral pulmonary emboli with directed thrombolysis
Severe pulmonary hypertension
bilateral popliteal thrombi, non-occlusive (01/2025)
Chronic nocturnal oxygen therapy at home with 2 L at night
Cardiomyopathy with recovered ejection fraction, (EF 15% in 2003)
Chronic left bundle branch block
Hyperlipidemia
Intermittent asthma
Right hip replacement 2020
Echocardiogram 05/09/2025: EF 55 to 60%. Mild LVH. D-shaped interventricular septum in systole and diastole consistent with RV pressure and volume overload. Mild to moderate dilated hypocontractile right ventricle.� Moderate to severe TR with PA
pressure 84 mmHg.
Echo 02/10/2025: EF 57%. Mild to moderate enlarged RV with mildly reduced RV systolic function and D shaped interventricular septum consistent with RV pressure and volume overload. Trace MR. Moderate TR with PAP 76 mmHg
Echo 09/05/2023 Normal left ventricular size. LV ejection fraction is 49% by Ponce's biplane method of discs. Visually appears 50-55%. Mild LVH. Normal RV. Mild MR.
Echo 06/21/25: EF 50 to 55%, mildly dilated RV with moderate RV hypokinesis, moderate-severe TR PA pressure 57
Plan:
Remains in sinus rhythm. Continue amiodarone 200 mg p.o. twice daily in a.m.
Continue Eliquis
O2 requirement is close to baseline
Will continue Lasix 40 mg p.o. daily
Blood pressures improved but overall remains marginal. Hold spironolactone with hypotension.
Continue midodrine to support blood pressure.
Stable for discharge from my perspective
Progress Note - Chain Saw Mechanic
Subjective
Date of Service: June 24, 2025
No acute overnight events. Patient tells me she feels well and is anxious to be discharged home. O2 requirement has been weaned down to 3 L and breathing is comfortable by her report.
Objective
Labs:
06/24/25 05:49
06/24/25 05:49
Labs
Hgb 12.1 g/dL (12.0-16.0) 06/24/25 05:49
Hct 35.7 % (37.0-47.0) L 06/24/25 05:49
Plt Count 166 10^3/uL (130-400) 06/24/25 05:49
PT 20.6 Sec (11.4-14.6) H 06/17/25 12:46
INR 1.74 06/17/25 12:46
Sodium 140 mmol/L (135-145) 06/24/25 05:49
Potassium 3.8 mmol/L (3.5-5.1) 06/24/25 05:49
BUN 18 mg/dl (7-17) H 06/24/25 05:49
Creatinine 0.8 mg/dL (0.6-1.0) 06/24/25 05:49
Glucose 84 mg/dl (70-99) 06/24/25 05:49
Vital Signs and I&O:
Vital Signs
Temp Pulse Resp BP Pulse Ox
98.1 F 80 21 95/69 95
06/24/25 07:35 06/24/25 12:51 06/24/25 11:00 06/24/25 12:51 06/24/25 11:00
Vital Signs
Temp Pulse Resp BP Pulse Ox
98.1 F 80 21 95/69 95
06/24/25 07:35 06/24/25 12:51 06/24/25 11:00 06/24/25 12:51 06/24/25 11:00
Intake & Output
06/22/25 06/23/25 06/24/25 06/25/25
06:59 06:59 06:59 06:59
Intake Total 120 / 120 960 / 960 240 / 240
Output Total 500 / 500 600 / 600 600 / 600
Balance -380 / -380 360 / 360 -360 / -360
Physical Exam
Physical Exam
Gen: NAD, AAOx3, OOB to chair
HEENT: NC/AT, sclera anicteric
Neck: No JVD
CV: RRR, NL s1/s2
Lungs: CTAB on 3L O2
Abd: S/ND
Ext: 1+ LE edema
Skin: Warm, dry
Neuro: Non-focal
--- NOTE | 2025-06-27 15:11 | W.HF.CON ---
Heart Failure
- LV Function
Left ventricular function study result: LV Ejection fraction >/= 50%
Ejection Fraction Percentage: 50-55
- ARNI
Patient already on ARNI: No
Heart Failure ARNI Not Indicated: LV Ejection Fraction >/= 40%
- ACEI/ARB
Patient already on ACEI/ARB: No
Heart Failure ACEI/ARB Not Indicated: LV Ejection Fraction > 40%
- Beta Bill
Patient already on Evidence Based Beta Bill: No
Heart Failure Evidence Based Beta Bill Not Indicated: LV Ejection Fraction > 40%
- Mineralocorticord Receptor Antagonist
Patient already on MRA: Yes
- SGLT-2 Inhibitor
Patient already on SGLT-2 Inhibitor: No
Heart Failure SGLT-2 Inhibitor Not Indicated: LV Ejection Fraction >40%
- Afib Anticoagulation
Patient already on Anticoagulation for Afib: Yes
- NYHA CHF Classification
NYHA CHF Classification Level: Class III - Symptoms w/ min exertion, interferes w/ nml daily activity
- ACC/AHA Stage
ACC/AHA Stage: Stage C: Symptomatic Heart Failure
== END 2025-06-24 14:35 | disposition home health service (06) | DRG 291 ==
LOC: IMU 18:15
PROVIDERS: Emergency Medicine; Internal Medicine Cardiovascular Disease; Nurse Practitioner Family; Nurse Practitioner Gerontology; Student in an Organized Health Care Education/Training Program; ADMITTING PHYSICIAN Internal Medicine; ATTENDING PHYSICIAN Internal Medicine; EMERGENCY PHYSICIAN Emergency Medicine; FAMILY PHYSICIAN Nurse Practitioner Adult Health
PROC: 5A2204Z Restoration of Cardiac Rhythm, Single (ICD-10-PCS; 2025-06-21)
PROC: 3E02340 Introduction of Influenza Vaccine into Muscle, Percutaneous Approach (ICD-10-PCS; 2025-06-24)
DX: I11.0 Hypertensive heart disease with heart failure (principal); I50.33 Acute on chronic diastolic (congestive) heart failure; J96.21 Acute and chronic respiratory failure with hypoxia; R57.0 Cardiogenic shock; J98.11 Atelectasis; I48.4 Atypical atrial flutter; I27.24 Chronic thromboembolic pulmonary hypertension; D75.89 Other specified diseases of blood and blood-forming organs; F10.11 Alcohol abuse, in remission; I44.7 Left bundle-branch block, unspecified; E78.5 Hyperlipidemia, unspecified; K58.9 Irritable bowel syndrome, unspecified; J45.20 Mild intermittent asthma, uncomplicated; I07.2 Rheumatic tricuspid stenosis and insufficiency; L89.301 Pressure ulcer of unspecified buttock, stage 1; E83.42 Hypomagnesemia; I48.91 Unspecified atrial fibrillation; E87.6 Hypokalemia; Z96.641 Presence of right artificial hip joint; Z99.81 Dependence on supplemental oxygen; Z86.711 Personal history of pulmonary embolism; Z79.01 Long term (current) use of anticoagulants; Z88.8 Allergy status to other drugs, medicaments and biological substances; Z86.718 Personal history of other venous thrombosis and embolism; Z23 Encounter for immunization; Z87.440 Personal history of urinary (tract) infections
CPT/HCPCS: 71046; 80048; 80053; 82805; 83735; 83880; 84100; 84484; 85025; 85027; 85610; 90662; 92960; 93005; 93306; 94002; 96374; 97116; 97163; 97167; 97530; 99291; G0008; Q9950